=== PATIENT | male | born 1940 | race Caucasian/White ===

== ENCOUNTER 2017-05-12 16:28 | Inpatient (IN) | payer MEDICARE, OTHER ==
[~2017-05-12] VITALS: Ht 172.7 cm; Wt 81.5 kg
[~2017-05-12 16:28] MED LIST: ASPI81 PO; CALC600T34 PO; FISH1000 PO; PRAV40TA PO; TAB-TAB PO; VALTURNA PO
[2017-05-12 16:31] VITALS: BP 142/89; PULSE 80; RESP 16; TEMP 99.6; O2SAT 98
--- NOTE | 2017-05-12 17:24 | RADRPT ---
EXAM DATE/TIME: 05/12/2017 17:08 [place] COMPARISON: No previous studies available for comparison. INDICATIONS : Shortness of breath, sent by doctor. MEDICAL HISTORY : None. SURGICAL HISTORY : None. ENCOUNTER: Initial ACUITY: 1 day PAIN SCORE: 0/10 LOCATION: Bilateral chest FINDINGS: PA and lateral views of the chest were obtained and demonstrate blunting of both posterior and latera l costophrenic angles consistent with small effusions. The heart size is upper limits of normal with no definite perihilar edema. There is no focal consolidation. There is mild patchy opacity of the jack g bases. The bony thorax is intact. CONCLUSION: 1. Small bilateral pleural effusions. 2. Mild patchy opacity at both lung bases with no focal consolidation. 3. No perihilar edema. Sandor Wolf MD on May 12, 2017 at 17:21 Board Certified Radiologist. This report was verified electronically.
[2017-05-12 18:25] LABS: AUTOMATED NEUTROPHIL # 2.9 TH/MM3 (1.8-7.7); BASOPHIL # 0.1 TH/MM3 (0-0.2); EOSINOPHIL # 0.1 TH/MM3 (0-0.4); EOSINOPHIL % 1.7 % (0.0-4.0); HEMATOCRIT 27.5 % (39.0-51.0); LYMPH % 31.6 % (9.0-44.0); LYMPHOCYTE # 1.8 TH/MM3 (1.0-4.8); MEAN CELL VOLUME 88.2 FL (80.0-100.0); MEAN CORPUSCULAR HEMOGLOBIN 29.1 PG (27.0-34.0); MEAN CORPUSCULAR HGB CONC 32.9 % (32.0-36.0); MONO % 13.4 % (0.0-8.0); MONOCYTE # 0.8 TH/MM3 (0-0.9); NEUT % 52.3 % (16.0-70.0); PLATELET COUNT 216 TH/MM3 (150-450); RED BLOOD COUNT 3.12 MIL/MM3 (4.50-5.90); RED CELL DISTRIBUTION WIDTH 15.5 % (11.6-17.2); WHITE BLOOD COUNT 5.6 TH/MM3 (4.0-11.0)
[2017-05-12 18:36] LABS: INTERNATIONAL NORMALIZED RATIO 1.2 RATIO; PROTHROMBIN TIME - PATIENT 11.9 SEC (9.8-11.6)
[2017-05-12 18:41] LABS: ALBUMIN 2.9 GM/DL (3.4-5.0); AST (GOT) 52 U/L (15-37); BICARBONATE 20.9 MEQ/L (21.0-32.0); BLOOD UREA NITROGEN 27 MG/DL (7-18); CALCIUM 8.4 MG/DL (8.5-10.1); CHLORIDE 107 MEQ/L (98-107); CREATININE 2.03 MG/DL (0.60-1.30); GLOMERULAR FILTRATION RATE 32 ML/MIN (>89); GLUCOSE,RANDOM 102 MG/DL (74-106); MAGNESIUM 2.1 MG/DL (1.5-2.5); SODIUM (NA) 140 MEQ/L (136-145)
[2017-05-12 18:42] LABS: ALT (GPT) 30 U/L (12-78)
[2017-05-12 18:46] LABS: ALKALINE PHOSPHATASE 67 U/L (45-117); TOTAL BILIRUBIN ADULT 0.5 MG/DL (0.2-1.0); TOTAL PROTEIN 7.6 GM/DL (6.4-8.2)
[2017-05-12 18:48] LABS: TROPONIN I 9.75 NG/ML (0.02-0.05)
--- NOTE | 2017-05-12 19:15 | PD ---
HPI Chief Complaint: Cardiac Complaint Time Seen by Provider: 19:14 Travel History International Travel<30 days: Yes Contact w/Intl Traveler<30days: Yes Name of Country Traveled to: [place] Traveled to known affect area: No History of Present Illness HPI The patient is a 77 year old male who presents to the [facility] emergency department with a history of progressive shortness of breath over the last 2 weeks and lower extremity edema that greatly worsened over the last week when he was on a cruise. The patient reports that he also gained 10 pounds in water weight. He denies having any prior history of congestive heart failure. He does report having history of multiple myeloma and renal insufficiency. He did see his therapist's assistant today and was sent to the emergency department for evaluation as he was thought to be in congestive heart failure. The patient reports having a history of angioplasty of 2 vessels related to a myocardial infarction in 1992. He reports that he is currently followed by Dr. Clifton for his cardiac care. The patient reports that his last stress test was approximately 2 years ago. He denies having any chest pain or chest pressure. He reports that he's had a cough that the productive intermittently of white to yellow sputum. He reports that his temperature was elevated earlier today at 100. Otherwise on review of systems, the patient denies having any neck pain, abdominal pain, vomiting, diaphoresis, urinary symptoms, or neurologic symptoms. The patient reports that over the last 2 days he has had some loose stools approximately 2-3 times per day. He denies having any blood in his stool or black or tarry stools. He reports that his has had similar symptoms of loose stools. [facility] Past Medical History Narrative Medical The patient's past medical history is significant for hypertension, hyperlipidemia, history of coronary artery disease status post myocardial infarction in 1992, history of multiple myeloma, chronic renal insufficiency, peripheral neuropathy AAA: Yes Arthritis: Yes Blood Disorders: No Cancer: Yes (hx of prostate cancer) Cardiovascular Problems: Yes High Cholesterol: Yes Chemotherapy: Yes (lupron) Diabetes: No Endocrine: No Glaucoma: No Hepatitis: No Hiatal Hernia: No Hypertension: Yes Immune Disorder: No Psychiatric: No Reproductive: No Respiratory: No Myocardial Infarction: Yes Radiation Therapy: Yes Renal Failure: Yes (30% diminished) Thyroid Disease: No Tetanus Vaccination: Unknown Influenza Vaccination: Yes Past Surgical History Narrative Surgical The patient has a history of prostate cancer status post radical prostatectomy, history of cardiac catheterization with angioplasty in 1992, history of abdominal aortic aneurysm repair. Abdominal Surgery: Yes (AAA REPAIR) Cardiac Surgery: Yes (plaque removal from the cardiac arteries) Ear Surgery: No Endocrine Surgery: No Eye Surgery: No Genitourinary Surgery: Yes (prostectomy f/u with radation and chemo) Gynecologic Surgery: No Oral Surgery: No Thoracic Surgery: No Social History Alcohol Use: Yes (one glass of wine daily) Tobacco Use: No (quit smoking in 1990) Substance Use: No Allergies-Medications (Allergen,Severity, Reaction): Coded Allergies: No Known Allergies (Unverified , 07/05/09) Reported Meds & Prescriptions Reported Meds & Active Scripts Active Reported Multi Vitamin Daily (Multiple Vitamin) 1 Tab Tab Tsyhawn-Citrate Plus Vitamin D (Calcium Citrate-Vitamin D) 250-100 Mg-Unit Tab 2 Tab PO BID Ventolin Hfa 18 GM Inh (Albuterol Sulfate) 90 Mcg/Act Aer 2 Puff INH Q4-6H PRN Lyrica (Pregabalin) 75 Mg Cap 75 Mg PO BID Pravastatin 40 Mg Tab 40 Mg PO DAILY Vitamin D3 (Cholecalciferol) 2,000 Unit Cap 2,000 Units PO DAILY Potassium Chloride ER (Potassium Chloride) 10 Meq Cap 10 Meq PO EVERY OTHER DAY Bumetanide 1 Mg Tab 1 Mg PO EVERY OTHER DAY Omeprazole 20 Mg Cap 20 Mg PO DAILY Aspirin 81 Mg Chew 81 Mg CHEW DAILY Revlimid (Lenalidomide) 10 Mg Capsule 10 Mg PO 3 WEEKS ON 1 WEEK OF Coreg (Carvedilol) 3.125 Mg Tab 3.125 Mg PO BID Amlodipine (Amlodipine Besylate) 5 Mg Tab 5 Mg PO DAILY Review of Systems Except as stated in HPI: all other systems reviewed are Neg General / Constitutional: No: Fever Eyes: No: Visual changes HENT: No: Headaches Cardiovascular: Positive: Dyspnea on exertion, Edema, No: Chest Pain or Discomfort Respiratory: Positive: Cough, Shortness of Breath, Orthopnea Gastrointestinal: Positive: Diarrhea, No: Nausea, Vomiting, Abdominal Pain Genitourinary: No: Dysuria Musculoskeletal: No: Pain Skin: No Rash Neurologic: No: Weakness Psychiatric: No: Depression Endocrine: No: Polydipsia Hematologic/Lymphatic: No: Easy Bruising Physical Exam Narrative General: The patient is a well-developed well-nourished male in no acute distress. Head and Neck exam: Head is normocephalic atraumatic. Eyes: EOMI, pupils are equal round and reactive to light. Nose: Midline septum with pink mucous membranes Mouth: Dentition unremarkable. Moist mucus membranes. Posterior oropharynx is not erythematous. No tonsillar hypertrophy. Uvula midline. Airway patent. Neck: No palpable lymphadenopathy. No nuchal rigidity. No thyromegaly. Cardiovascular: Regular rate and rhythm with a 1/6 systolic murmur, no gallops or rubs. No pulse deficit to the extremities on simultaneous auscultation and palpation of his radial artery. Lungs: Decreased breath sounds are audible in bilateral bases with crackles audible in bilateral bases, no rhonchi, no wheezes. The patient has no accessory muscle use noted. Abdomen: Soft, without tenderness to palpation in all 4 quadrants of the abdomen. No guarding, rebound, or rigidity. Normal bowel sounds are audible. No tenderness on palpation of McBurney's point. Extremities: No clubbing or cyanosis. The patient has 2+ pitting edema bilateral lower extremities. 2+ pulses in all 4 extremities. No calf tenderness on palpation. Back: No costovertebral angle tenderness to palpation. Neurologic Exam: Grossly nonfocal. Skin Exam: No rash noted. Intact skin that is warm and dry. Data Data Last Documented VS Vital Signs Date Time Temp Pulse Resp B/P (MAP) Pulse Ox O2 Delivery O2 Flow Rate FiO2 05/12/17 16:31 99.6 80 16 142/89 (106) 98 Orders Orders Complete Blood Count With Diff (05/12/17 16:59) Comprehensive Metabolic Panel (05/12/17 16:59) B-Type Natriuretic Peptide (05/12/17 16:59) Act Partial Throm Time (Ptt) (05/12/17 16:59) Prothrombin Time / Inr (Pt) (05/12/17 16:59) Magnesium (Mg) (05/12/17 16:59) Ckmb (Isoenzyme) Profile (05/12/17 16:59) Troponin I (05/12/17 16:59) Electrocardiogram (05/12/17 16:59) Chest, Pa & Lat (05/12/17 16:59) CKMB (05/12/17 17:37) CKMB% (05/12/17 17:37) Aspirin Chew (Aspirin Chew) (05/12/17 19:30) Nitroglycerin 2% Oint (Nitroglycerin 2% (05/12/17 19:30) Nitroglycerin Sl (Nitrostat Sl) (05/12/17 19:30) Furosemide Inj (Lasix Inj) (05/12/17 19:30) Heparin Inj (Heparin Inj) (05/12/17 19:30) Heparin-D5w 25,000 U/250 Ml (Heparin-D5w (05/12/17 19:30) Cbc No Diff, Includes Plts (05/15/17 06:00) Act Partial Throm Time (Ptt) (05/13/17 02:17) Occult Blood (Hemoccult) Stool (05/12/17 19:17) Aspirin Chew (Aspirin Chew) (05/12/17 20:15) Admit To Inpatient (05/12/17 ) Vital Signs (Adult) Q4H (05/12/17 20:19) Activity Oob With Assistance (05/12/17 20:19) Manager Health / Telemetry .CONTINUOUS (05/12/17 20:19) Intake + Output SEBASTIAN.QSHIFT (05/12/17 20:19) Diet Npo (05/13/17 Breakfast) Sodium Chloride 0.9% Flush (Ns Flush) (05/12/17 20:30) Sodium Chloride 0.9% Flush (Ns Flush) (05/12/17 21:00) Complete Blood Count With Diff (05/13/17 06:00) Creatine Kinase (Cpk) (05/12/17 23:30) Creatine Kinase (Cpk) (05/13/17 05:30) Troponin I (05/12/17 23:30) Troponin I (05/13/17 05:30) Electrocardiogram (05/12/17 23:30) Electrocardiogram (05/13/17 05:30) Pt Request For Service (05/12/17 20:19) Case Management Consult (05/12/17 20:19) Naloxone Inj (Narcan Inj) (05/12/17 20:30) Inpatient Certification (05/12/17 ) Consult Nephrology (05/12/17 ) Furosemide Inj (Lasix Inj) (05/13/17 09:00) Potassium Chloride (Kcl) (05/12/17 21:00) Consult Cardiology (05/12/17 ) Admit Order (Ed Use Only) (05/12/17 20:25) Echo 2d Comp With Doppler (05/13/17 ) Labs Laboratory Tests Test 05/12/17 17:37 White Blood Count 5.6 TH/MM3 Red Blood Count 3.12 MIL/MM3 Hemoglobin 9.0 GM/DL Hematocrit 27.5 % Mean Corpuscular Volume 88.2 FL Mean Corpuscular Hemoglobin 29.1 PG Mean Corpuscular Hemoglobin Concent 32.9 % Red Cell Distribution Width 15.5 % Platelet Count 216 TH/MM3 Mean Platelet Volume 9.0 FL Neutrophils (%) (Auto) 52.3 % Lymphocytes (%) (Auto) 31.6 % Monocytes (%) (Auto) 13.4 % Eosinophils (%) (Auto) 1.7 % Basophils (%) (Auto) 1.0 % Neutrophils # (Auto) 2.9 TH/MM3 Lymphocytes # (Auto) 1.8 TH/MM3 Monocytes # (Auto) 0.8 TH/MM3 Eosinophils # (Auto) 0.1 TH/MM3 Basophils # (Auto) 0.1 TH/MM3 CBC Comment DIFF FINAL Differential Comment Prothrombin Time 11.9 SEC Prothromb Time International Ratio 1.2 RATIO Activated Partial Thromboplast Time 33.2 SEC Blood Urea Nitrogen 27 MG/DL Creatinine 2.03 MG/DL Random Glucose 102 MG/DL Total Protein 7.6 GM/DL Albumin 2.9 GM/DL Calcium Level 8.4 MG/DL Magnesium Level 2.1 MG/DL Alkaline Phosphatase 67 U/L Aspartate Amino Transf (AST/SGOT) 52 U/L Alanine Aminotransferase (ALT/SGPT) 30 U/L Total Bilirubin 0.5 MG/DL Sodium Level 140 MEQ/L Potassium Level 3.4 MEQ/L Chloride Level 107 MEQ/L Carbon Dioxide Level 20.9 MEQ/L Anion Gap 12 MEQ/L Estimat Glomerular Filtration Rate 32 ML/MIN Total Creatine Kinase 377 U/L Creatine Kinase MB 5.4 NG/ML Creatine Kinase MB % 1.4 % Troponin I 9.75 NG/ML B-Type Natriuretic Peptide 1708 PG/ML MDM Medical Decision Making Medical Screen Exam Complete: Yes Emergency Medical Condition: Yes Medical Record Reviewed: Yes Interpretation(s) Last Impressions Chest X-Ray 05/12/17 9519 Signed Impressions: Service Date/Time: Friday, May 12, 2017 17:08 - CONCLUSION: 1. Small bilateral pleural effusions. 2. Mild patchy opacity at both lung bases with no focal consolidation. 3. No perihilar edema. Sandor Wolf MD Differential Diagnosis New-onset congestive heart failure, versus acute coronary syndrome, versus pneumonia Narrative Course During the course of the patients emergency department visit, the patients history, examination, and differential diagnosis were reviewed with the patient. The patient was placed on a front desk monitor with oximetry and frequent blood pressure monitoring. The patient had IV access obtained and blood work sent for analysis. The patient had an EKG done on arrival in the emergency department at 17:35. The patient was noted to have a sinus rhythm with a sinus arrhythmia, QRS duration 117 ms, QTC 412 ms. Q waves were noted to be present in lead 3, T waves inverted in lead 3, aVF. No acute ST segment elevation is noted. The patient was initially provided the patient was given aspirin 324 mg by mouth 1, nitroglycerin 1 inch the chest wall. The patient's troponin by the time he arrived back in the emergency department bed after being protocol down in triage was noted to be elevated at 9.7 a call was urgently placed out to the sleep medicine physician, Dr. Clifton that the patient follows with as an outpatient. We discussed the fact that the patient appears to be in congestive heart failure. As the patient currently has no chest pain he believes that the patient underwent our heart attack and we are seeing a downward trend in his troponin with heart failure as a result of the damage from the prior cardiac injury. He recommends diuresis. The patient was given Lasix 60 mg IV. He recommends placement on heparin. The patient was given a heparin bolus and heparin drip. He will see the patient consultation and after the patient is diuresis plans to take the patient to the cardiac catheterization lab. The patients laboratory studies were reviewed and remarkable for a white count of 5.6, hemoglobin 9, platelets 216 with 13.4 monocytes, CMP is remarkable for potassium of 3.4, CO2 20.9, BUN 27, creatinine 2.03, calcium 8.4, AST 52, CPK 377 with an MB percent of 1.4, troponin I 9.75, albumin 2.9, BNP 1708. PT 11.9 , INR 1.2, PTT 33.2. Radiology studies were reviewed and remarkable for a chest x-ray that reveals small bilateral pleural effusions, mild patchy opacity at both lung bases with no focal consolidation. No perihilar edema. The patients results were discussed with the patient, including the plan of care. I explained that further testing and/ or monitoring is indicated based on the patients history, examination, and/ or laboratory findings. Therefore, I recommended admission for additional evaluation. The patient expressed understanding and was agreeable with this plan. The patient was admitted to the hospital in guarded condition and sent to a bed under the care of the [facility] service. Critical Care Narrative Aggregate critical care time was 35 minutes. Time to perform other separately billable procedures was not included in the critical care time. My time did not include minutes spent treating any other patients simultaneously or on activities that did not directly contribute to the patient's treatment. The services I provided to this patient were to treat and/or prevent clinically significant deterioration that could result in: Respiratory failure from congestive heart failure, versus cardiovascular collapse I provided critical care services requiring my management, as noted below: Chart data review, documentation time, medication orders and management, vital sign assessments/reviewing monitor data, ordering and reviewing lab tests, ordering and interpreting/reviewing x-rays and diagnostic studies, care of the patient and discussion of the patient with the admitting physicians. Physician Communication Physician Communication The patient's case including history, pertinent physical examination findings, and laboratory studies were discussed with Dr. Clifton at 19:28. He agreed with the plan to place the patient on heparin bolus and drip. He recommended that the patient be diuresed. He agreed with the plan to place the patient on an adult aspirin as well as nitroglycerin paste. It was agreed that the patient would be admitted to the [facility] service. The patient's case was discussed with Dr. Mendoza. She did agree to admit the patient for further evaluation and treatment at this time. Diagnosis Primary Impression: Non-STEMI (non-ST elevated myocardial infarction) Additional Impression: New onset of congestive heart failure Admitting Information Admitting Physician Requests: Gayla Lewis MD May 12, 2017 19:15
[2017-05-12] MEDS ORDERED: HEPARIN SODIUM - IV 10,000 UNITS/10 ML VIAL IV ONE (19:30)
[2017-05-12] MEDS ORDERED: ASPIRIN 81 MG CHEW TAB CHEW ONE ×2 (19:30→20:15)
[2017-05-12] MEDS ORDERED: NITROGLYCERIN 0.4 MG SL 25 TABS/BTL SL PRN (19:30)
[2017-05-12] MEDS ORDERED: FUROSEMIDE 40 MG/4 ML VIAL IV PUSH ONE (19:30)
[2017-05-12] MEDS ORDERED: NITROGLYCERIN 2% OINT 1 GM PACKET TOPICAL ONE (19:30)
[2017-05-12] MEDS: HEPARIN-D5W 25,000 U/250 ML 250 ML IV PRN (19:37)
[2017-05-12] MEDS ORDERED: OMEP20CA2 PO (19:52)
[2017-05-12] MEDS ORDERED: CARV3.125 PO (19:52)
[2017-05-12] MEDS ORDERED: CAL-TAB4 PO (19:52)
[2017-05-12] MEDS ORDERED: LENA10CA PO (19:52)
[2017-05-12] MEDS ORDERED: ASPI-516 CHEW (19:52)
[2017-05-12] MEDS ORDERED: MULT1TAB46 (19:52)
[2017-05-12] MEDS ORDERED: VENTAER INH (19:52)
[2017-05-12] MEDS ORDERED: PRAV40TA2 PO (19:52)
[2017-05-12] MEDS ORDERED: AMLO5TAB2 PO (19:52)
[2017-05-12] MEDS ORDERED: POTA10CA PO (19:52)
[2017-05-12] MEDS ORDERED: VITA2000 PO (19:52)
[2017-05-12] MEDS ORDERED: BUME1TAB PO (19:52)
[2017-05-12] MEDS ORDERED: LYRI75CA PO (19:52)
[2017-05-12] MEDS ORDERED: SODIUM CHLORIDE 0.9% FLUSH 10 ML FLUSH IV FLUSH PRN (20:30)
[2017-05-12] MEDS ORDERED: NALOXONE HCL 0.4 MG/ML AMP IV PUSH PRN (20:30)
[2017-05-12] MEDS ORDERED: POTASSIUM CHLORIDE 20 MEQ CONTROLLED RELEASE TAB PO ONE (21:00)
[2017-05-12] MEDS: SODIUM CHLORIDE 0.9% FLUSH 10 ML FLUSH IV FLUSH SCH (21:00)
[2017-05-12 21:56] VITALS: BP 101/52; PULSE 72; RESP 18; O2SAT 96
--- NOTE | 2017-05-12 22:49 | HHI.HP ---
HPI Service [facility] Primary Care Physician Brandon Cuellar M.D. Admission Diagnosis NonSTEMI, New onset CHF Diagnoses: Travel History International Travel<30 Days: Yes Contact w/Intl Traveler <30 Da: Yes Name of Country Traveled to: [place] Traveled to Known Affected Are: No History of Present Illness hx from patient, ER MD communication and review of med records my doctor sent me because my legs are swelling like an elephant DR Lizama sent was short of breath, cough for about 10days mostly on exertion and when bending down no pillow orthopnea no pnd usually uses cpap at night for sleep apnea not on home oxygen no chest pain or tightness had one day hx of diarrhea yesterday- was on a cruise - but was just once or twice yesterday no other sick contact no black or red stool or blood in urine no other symptoms Review of Systems Except as stated in HPI: all other systems reviewed are Neg Past Family Social History Past Medical History htn cad s/p [place] 1992 sleep apnea on cpap copd - was a smoker, on nebs ckd III multiple meyloma- on oral chemo- follows at [facility] prostate [facility]- s/p prostatectomy- had radiation and leupron - 1999 AAA repair 2007 Past Surgical History prostatectomy coronary angiogram and stent AAA repair 2007 Allergies: Coded Allergies: No Known Allergies (Unverified , 07/05/09) Family History chf - mom - valve replaced father- lung cancer and heart issues Social History quit smoking 1990 no etoh or drug abuse lives with , still driving Physical Exam Vital Signs Vital Signs Date Time Temp Pulse Resp B/P (MAP) Pulse Ox O2 Delivery O2 Flow Rate FiO2 05/12/17 21:56 72 18 101/52 (68) 96 2.00 05/12/17 16:31 99.6 80 16 142/89 (106) 98 Physical Exam GENERAL: This is a well-nourished, well-developed patient, in no apparent distress. SKIN: No rashes, ecchymoses or lesions. Cool and dry. HEAD: Atraumatic. Normocephalic. No temporal or scalp tenderness. EYES: . No scleral icterus. No injection or drainage. ENT: Nose without bleeding, purulent drainage or septal hematoma. Airway patent. NECK: Trachea midline. No JVD CARDIOVASCULAR: Regular rate and rhythm without murmurs, gallops, or rubs. RESPIRATORY: bilateral basilar rales GASTROINTESTINAL: Abdomen soft, non-tender, nondistended. . No guarding. MUSCULOSKELETAL: Extremities without clubbing, cyanosis, or edema. No calf tenderness. NEUROLOGICAL: Awake and alert. Motor and sensory grossly within normal limits. Normal speech. Laboratory Laboratory Tests Test 05/12/17 17:37 White Blood Count 5.6 Red Blood Count 3.12 Hemoglobin 9.0 Hematocrit 27.5 Mean Corpuscular Volume 88.2 Mean Corpuscular Hemoglobin 29.1 Mean Corpuscular Hemoglobin Concent 32.9 Red Cell Distribution Width 15.5 Platelet Count 216 Mean Platelet Volume 9.0 Neutrophils (%) (Auto) 52.3 Lymphocytes (%) (Auto) 31.6 Monocytes (%) (Auto) 13.4 Eosinophils (%) (Auto) 1.7 Basophils (%) (Auto) 1.0 Neutrophils # (Auto) 2.9 Lymphocytes # (Auto) 1.8 Monocytes # (Auto) 0.8 Eosinophils # (Auto) 0.1 Basophils # (Auto) 0.1 CBC Comment DIFF FINAL Differential Comment Prothrombin Time 11.9 Prothromb Time International Ratio 1.2 Activated Partial Thromboplast Time 33.2 Blood Urea Nitrogen 27 Creatinine 2.03 Random Glucose 102 Total Protein 7.6 Albumin 2.9 Calcium Level 8.4 Magnesium Level 2.1 Alkaline Phosphatase 67 Aspartate Amino Transf (AST/SGOT) 52 Alanine Aminotransferase (ALT/SGPT) 30 Total Bilirubin 0.5 Sodium Level 140 Potassium Level 3.4 Chloride Level 107 Carbon Dioxide Level 20.9 Anion Gap 12 Estimat Glomerular Filtration Rate 32 Total Creatine Kinase 377 Creatine Kinase MB 5.4 Creatine Kinase MB % 1.4 Troponin I 9.75 B-Type Natriuretic Peptide 1708 Result Diagram: 05/12/17 1737 05/12/17 1737 Imaging Last 48 hours Impressions Chest X-Ray 05/12/17 1659 Signed Impressions: Service Date/Time: Friday, May 12, 2017 17:08 - CONCLUSION: 1. Small bilateral pleural effusions. 2. Mild patchy opacity at both lung bases with no focal consolidation. 3. No perihilar edema. MD Jazmyn Gutierrez VTE Risk Assessment Caprini VTE Risk Assessment: Mod/High Risk (score >= 2) Caprini Risk Assessment Model Point Value = 1 Point Value = 2 Point Value = 3 Point Value = 5 Age 41-60 Minor surgery BMI > 25 kg/m2 Swollen legs Varicose veins or History of unexplained or recurrent spontaneous Oral contraceptives or hormone replacement Sepsis (< 1 month) Serious lung disease, including pneumonia (< 1 month) Abnormal pulmonary function Acute myocardial infarction Congestive heart failure (< 1 month) History of inflammatory bowel disease Medical patient at bed rest Age 61-74 Arthroscopic surgery Major open surgery (> 45 min) Laparoscopic surgery (> 45 min) Malignancy Confined to bed (> 72 hours) Immobilizing plaster cast Central venous access Age >= 75 History of VTE Family history of VTE Factor V Leiden Prothrombin [id number] Lupus anticoagulant Anticardiolipin antibodies Elevated serum homocysteine Heparin-induced thrombocytopenia Other congenital or acquired thrombophilia Stroke (< 1 month) Elective arthroplasty Hip, pelvis, or leg fracture Acute spinal cord injury (< 1 month) Prophylaxis Regimen Total Risk Factor Score Risk Level Prophylaxis Regimen 0-1 Low Early ambulation 2 Moderate Order ONE of the following: *Sequential Compression Device (SCD) *Heparin 5000 units SQ BID 3-4 Higher Order ONE of the following medications: *Heparin 5000 units SQ TID *Enoxaparin/Lovenox 40 mg SQ daily (WT < 150 kg, CrCl > 30 mL/min) *Enoxaparin/Lovenox 30 mg SQ daily (WT < 150 kg, CrCl > 10-29 mL/min) *Enoxaparin/Lovenox 30 mg SQ BID (WT < 150 kg, CrCl > 30 mL/min) AND/OR *Sequential Compression Device (SCD) 5 or more Highest Order ONE of the following medications: *Heparin 5000 units SQ TID (Preferred with Epidurals) *Enoxaparin/Lovenox 40 mg SQ daily (WT < 150 kg, CrCl > 30 mL/min) *Enoxaparin/Lovenox 30 mg SQ daily (WT < 150 kg, CrCl > 10-29 mL/min) *Enoxaparin/Lovenox 30 mg SQ BID (WT < 150 kg, CrCl > 30 mL/min) AND *Sequential Compression Device (SCD) Assessment and Plan Assessment and Plan Impression: Non-ST elevation [place] in. Likely the event occurred a few days ago. New-onset CHF Hypokalemia Acute renal insufficiency in face of chronic kidney disease htn cad s/p [place] 1992 sleep apnea on cpap copd - was a smoker, on nebs ckd III multiple meyloma- on oral chemo- follows at [facility] prostate [facility]- s/p prostatectomy- had radiation and leupron - 1999 AAA repair 2007 Plan: Serial cardiac enzymes and EKGs. Cardiology was consulted. Heparin drip. Echocardiogram in a.m. The patient will go for coronary angiogram in the morning. Nothing by mouth. Consult patient's lead net software developer as patient is at high risk for renal failure/ possibly angina on dialysis. This was explained to patient. Lasix 40 mg IV every 12 hours. Potassium supplementation. Resume home medications. Resume patient's C Pap at night. DVT prophylaxis on heparin. Discussed Condition With Patient, ER physician, nursing staff Physician Certification 2 Midnight Certification Type: Admission for Inpatient Services Order for Inpatient Services The services are ordered in accordance with Medicare regulations or non- Medicare payer requirements, as applicable. In the case of services not specified as inpatient-only, they are appropriately provided as inpatient services in accordance with the 2-midnight benchmark. Estimated LOS (days): 2 days is the estimated time the patient will need to remain in the hospital, assuming treatment plan goals are met and no additional complications. Post-Hospital Plan: Home Asia Mendoza MD May 12, 2017 22:49
[2017-05-12] MEDS ORDERED: RESP: ALBUTEROL 2.5 MG/IPRATROPIUM 0.5 MG NEB (PRN) NEB (23:00)
[2017-05-13] VITALS (17 sets, daily range): BP systolic 97–122; BP diastolic 57–63; PULSE 62–80; RESP 16–22; TEMP 98.7–100.3; O2SAT 94–99
[2017-05-13 00:18] LABS: TROPONIN I 9.28 NG/ML (0.02-0.05)
[2017-05-13 01:52] LABS: AUTOMATED NEUTROPHIL # 1.9 TH/MM3 (1.8-7.7); BASOPHIL # 0.1 TH/MM3 (0-0.2); BASOPHIL % 1.1 % (0.0-2.0); EOSINOPHIL # 0.2 TH/MM3 (0-0.4); EOSINOPHIL % 3.9 % (0.0-4.0); HEMATOCRIT 25.2 % (39.0-51.0); HEMOGLOBIN 8.5 GM/DL (13.0-17.0); LYMPH % 43.1 % (9.0-44.0); LYMPHOCYTE # 2.1 TH/MM3 (1.0-4.8); MEAN CELL VOLUME 88.8 FL (80.0-100.0); MEAN CORPUSCULAR HEMOGLOBIN 29.9 PG (27.0-34.0); MEAN CORPUSCULAR HGB CONC 33.7 % (32.0-36.0); MEAN PLATELET VOLUME 8.7 FL (7.0-11.0); MONO % 12.7 % (0.0-8.0); MONOCYTE # 0.6 TH/MM3 (0-0.9); NEUT % 39.2 % (16.0-70.0); PLATELET COUNT 214 TH/MM3 (150-450); RED BLOOD COUNT 2.83 MIL/MM3 (4.50-5.90); RED CELL DISTRIBUTION WIDTH 15.6 % (11.6-17.2); WHITE BLOOD COUNT 4.8 TH/MM3 (4.0-11.0)
[2017-05-13 02:08] LABS: BICARBONATE 21.9 MEQ/L (21.0-32.0); CALCIUM 7.9 MG/DL (8.5-10.1); CREATININE 2.01 MG/DL (0.60-1.30)
[2017-05-13 02:16] LABS: TROPONIN I 9.68 NG/ML (0.02-0.05)
[2017-05-13] MEDS: PREGABALIN 75 MG CAP PO SCH ×2 (08:14→23:15)
[2017-05-13] MEDS: CARVEDILOL 3.125 MG TAB PO SCH ×2 (08:14→23:15)
[2017-05-13] MEDS: PANTOPRAZOLE SOD 20 MG DELAYED RELEASE TAB PO SCH ×2 (08:14→09:00)
[2017-05-13] MEDS: ASPIRIN 81 MG CHEW TAB CHEW SCH (08:14)
[2017-05-13] MEDS: amLODIPine BESYLATE 5 MG TAB PO SCH (08:14)
[2017-05-13] MEDS: SODIUM CHLORIDE 0.9% FLUSH 10 ML FLUSH IV FLUSH SCH ×2 (08:15→23:16)
[2017-05-13] MEDS: FUROSEMIDE 40 MG/4 ML VIAL IV PUSH SCH ×2 (08:15→18:33)
--- NOTE | 2017-05-13 08:35 | PD.CONS ---
HPI Service Cardiology Physicians Consult Requested By Hospitalist Reason for Consult NSTEMI, new onset CHF Primary Care Physician Brandon Cuellar M.D. History of Present Illness Mr. Nicholas is a pleasant 77 y/o known to Dr. Clifton. He has a past medical history of coronary artery disease, peripheral arterial disease, status post abdominal aortic aneurysm repair in 2007. Other issues include hypertension, hyperlipidemia, mild aortic stenosis, LVH, COPD, CKD, multiple myeloma on chemotherapy. He presented to the ED yesterday with complaints of sob, lower extremity edema. He reports 10 day history of LE edema. He has been modifying his sodium intake without improvement. He just returned Thursday from a cruise. Yesterday he went to see Dr. Lizama who sent him to the ED for further evaluation and treatment. He has noticed increased sob with exertion for some time now, sob when bending over. He denies chest pain, palpitations, orthopnea or PND. Work up in the ED with CXR - small bilateral pleural effusions. Serial troponin 9.75, 9.28, 9.68. BNP 1708. He was started on heparin drip and has been diuresed. He reports his sob and edema have improved. He is currently sitting on the side of the bed without distress. He denies chest pain or complaints. Review of Systems Consitutional: DENIES: Fatigue, Fever, Chills, Weight gain, Weight loss Eyes: DENIES: Change in vision HEENT: DENIES: Lightheadedness, Change in hearing Respiratory: COMPLAINS OF: Cough, Shortness of breath, DENIES: See HPI, Snoring , Wheezing, Sputum production Cardiovascular: COMPLAINS OF: See HPI, DENIES: Chest pain, Palpitations, Syncope, Tachycardia Gastrointestinal: DENIES: Nausea, Vomiting, Change in bowel habits, Reflux, Bloody stools, Melena Genitourinary: DENIES: Urinary incontinence, Difficulty voiding Integumentary: DENIES: Rash Neurologic: DENIES: Tingling or numbness, Memory problems, Poor Balance, Stroke symptoms Musculoskeletal: DENIES: Joint pain, Muscle pain, Limited range of motion, Back pain Psychiatric: DENIES: Anxiety, Depression, Sleep disturbances Hematologic: DENIES: Bruising tendencies, Bleeding tendencies Endocrine: DENIES: Thyroid disease Past Family Social History Allergies: Coded Allergies: No Known Allergies (Unverified , 07/05/09) Past Medical History coronary artery disease, peripheral arterial disease, status post abdominal aortic aneurysm repair in 2007. Other issues include hypertension, hyperlipidemia,, mild Aortic stenosis, LVH ,COPD, CKD, multiple myeloma. Past Surgical History prostatectomy AAA repair 2007 Reported Medications Reported Meds & Active Scripts Active Reported Multi Vitamin Daily (Multiple Vitamin) 1 Tab Tab Tyshawn-Citrate Plus Vitamin D (Calcium Citrate-Vitamin D) 250-100 Mg-Unit Tab 2 Tab PO BID Ventolin Hfa 18 GM Inh (Albuterol Sulfate) 90 Mcg/Act Aer 2 Puff INH Q4-6H PRN Lyrica (Pregabalin) 75 Mg Cap 75 Mg PO BID Pravastatin 40 Mg Tab 40 Mg PO DAILY Vitamin D3 (Cholecalciferol) 2,000 Unit Cap 2,000 Units PO DAILY Potassium Chloride ER (Potassium Chloride) 10 Meq Cap 10 Meq PO EVERY OTHER DAY Bumetanide 1 Mg Tab 1 Mg PO EVERY OTHER DAY Omeprazole 20 Mg Cap 20 Mg PO DAILY Aspirin 81 Mg Chew 81 Mg CHEW DAILY Revlimid (Lenalidomide) 10 Mg Capsule 10 Mg PO 3 WEEKS ON 1 WEEK OF Coreg (Carvedilol) 3.125 Mg Tab 3.125 Mg PO BID Amlodipine (Amlodipine Besylate) 5 Mg Tab 5 Mg PO DAILY Active Ordered Medications Current Medications Medications (Trade) Dose Ordered Sig/Elio Route Start Time Stop Time Status Last Admin (Nitrostat Sl) 0.4 mg Q5M PRN SL 05/12/17 19:30 Heparin Sodium/ Dextrose 250 ml @ 10 mls/hr TITRATE PRN IV 05/12/17 19:30 05/12/17 19:37 (NS Flush) 2 ml UNSCH PRN IV FLUSH 05/12/17 20:30 (NS Flush) 2 ml BID IV FLUSH 05/12/17 21:00 (Narcan Inj) 0.4 mg UNSCH PRN IV PUSH 05/12/17 20:30 (Lasix Inj) 40 mg BID@18 IV PUSH 05/13/17 09:00 05/13/17 08:15 (Norvasc) 5 mg DAILY PO 05/13/17 09:00 05/13/17 08:14 (Aspirin Chew) 81 mg DAILY CHEW 05/13/17 09:00 05/13/17 08:14 (Coreg) 3.125 mg BID PO 05/13/17 09:00 05/13/17 08:14 (KCl) 10 meq EVERY OTHER DAY PO 05/14/17 09:00 (Pravachol) 40 mg DAILY PO 05/13/17 09:00 05/13/17 08:14 (Lyrica) 75 mg BID PO 05/13/17 09:00 05/13/17 08:14 Patient Own Medication PT OWN MED: Lenalidomide (Revlim... 3 weeks on 1 week of PO 05/12/17 23:00 Future Hold (Protonix) 20 mg DAILY PO 05/13/17 09:00 05/13/17 08:14 (Duoneb Neb) 1 ampule Q4HR NEB PRN NEB 05/12/17 23:00 Family History Mother with history of CHF, valve replacement Father with history of lung cancer and CAD Social History He was a previous smoker, quit smoking in 1990, denies ETOH. lives with his . Physical Exam Vital Signs Vital Signs Date Time Temp Pulse Resp B/P (MAP) Pulse Ox O2 Delivery O2 Flow Rate FiO2 05/13/17 04:00 66 05/13/17 04:00 99.2 66 20 111/62 (78) 98 05/13/17 02:22 77 05/13/17 01:29 (68) 2.00 05/13/17 01:10 99.5 70 22 122/60 (80) 99 05/13/17 00:28 18 98 05/12/17 21:56 72 18 101/52 (68) 96 2.00 05/12/17 16:31 99.6 80 16 142/89 (106) 98 Physical Exam GENERAL: Awake, alert. No distress. SKIN: Warm and dry. HEAD: Atraumatic. Normocephalic. EYES: Pupils equal and round. No scleral icterus. No injection or drainage. ENT: No nasal bleeding or discharge. Mucous membranes pink and moist. NECK: Trachea midline. No JVD. CARDIOVASCULAR: Regular rate and rhythm. Systolic murmur over the aortic valve. RESPIRATORY: No accessory muscle use. Faint bibasilar crackles. Breath sounds equal bilaterally. GASTROINTESTINAL: Abdomen soft, non-tender, nondistended. MUSCULOSKELETAL: Extremities without clubbing, cyanosis. 2+ BLE edema. No obvious deformities. NEUROLOGICAL: Awake and alert. No obvious cranial nerve deficits. Motor grossly within normal limits. Five out of 5 muscle strength in the arms and legs. Normal speech. PSYCHIATRIC: Appropriate mood and affect; insight and judgment normal. Laboratory Laboratory Tests Test 05/12/17 17:37 05/12/17 23:43 05/13/17 01:47 White Blood Count 5.6 4.8 Red Blood Count 3.12 2.83 Hemoglobin 9.0 8.5 Hematocrit 27.5 25.2 Mean Corpuscular Volume 88.2 88.8 Mean Corpuscular Hemoglobin 29.1 29.9 Mean Corpuscular Hemoglobin Concent 32.9 33.7 Red Cell Distribution Width 15.5 15.6 Platelet Count 216 214 Mean Platelet Volume 9.0 8.7 Neutrophils (%) (Auto) 52.3 39.2 Lymphocytes (%) (Auto) 31.6 43.1 Monocytes (%) (Auto) 13.4 12.7 Eosinophils (%) (Auto) 1.7 3.9 Basophils (%) (Auto) 1.0 1.1 Neutrophils # (Auto) 2.9 1.9 Lymphocytes # (Auto) 1.8 2.1 Monocytes # (Auto) 0.8 0.6 Eosinophils # (Auto) 0.1 0.2 Basophils # (Auto) 0.1 0.1 CBC Comment DIFF FINAL DIFF FINAL Differential Comment Prothrombin Time 11.9 Prothromb Time International Ratio 1.2 Activated Partial Thromboplast Time 33.2 39.8 Blood Urea Nitrogen 27 29 Creatinine 2.03 2.01 Random Glucose 102 100 Total Protein 7.6 Albumin 2.9 Calcium Level 8.4 7.9 Magnesium Level 2.1 Alkaline Phosphatase 67 Aspartate Amino Transf (AST/SGOT) 52 Alanine Aminotransferase (ALT/SGPT) 30 Total Bilirubin 0.5 Sodium Level 140 145 Potassium Level 3.4 3.4 Chloride Level 107 111 Carbon Dioxide Level 20.9 21.9 Anion Gap 12 12 Estimat Glomerular Filtration Rate 32 32 Total Creatine Kinase 377 270 276 Creatine Kinase MB 5.4 Creatine Kinase MB % 1.4 Troponin I 9.75 9.28 9.68 B-Type Natriuretic Peptide 1708 Result Diagram: 05/13/17 0147 05/13/17 0147 Imaging Last 24 hours Impressions Chest X-Ray 05/12/17 [id number] Signed Impressions: Service Date/Time: Friday, May 12, 2017 17:08 - CONCLUSION: 1. Small bilateral pleural effusions. 2. Mild patchy opacity at both lung bases with no focal consolidation. 3. No perihilar edema. Sandor Wolf MD Assessment and Plan Assessment and Plan NSTEMI New onset CHF Hypertension CKD Pain free. Continue heparin drip. Continue aspirin, statin, beta el, norvasc. Continue diuresis. Monitor I&O, BNP, electrolytes and renal function. Will check echocardiogram to evaluate LV function. Will plan for cardiac catheterization tomorrow. Dr. Clifton will discuss with Dr. Lizama. Code Status Full Discussed Condition With Dang Valencia May 13, 2017 08:35
[2017-05-13] MEDS ORDERED: PRAVASTATIN SOD 40 MG TAB PO SCH (09:00)
--- NOTE | 2017-05-13 10:05 | HHI.FF ---
Face to Face Verification Diagnosis: (1) Non-STEMI (non-ST elevated myocardial infarction) (2) New onset of congestive heart failure Home Health Nursing Order: Medical education Signs/symptoms of disease process CHF education Oxygen administration education Telehealth I have seen patient Barbara Nicholas on 05/13/17. My clinical findings support the need for the requested home health care services because: Patient has SOB Need for psychosocial assistance High risk of falls Infection w/ risk of complications I certify that my clinical findings support that this patient is homebound because: Impaired cognitive ability/safety Unsafe to leave home unassisted Need for psychosocial assistance Unable to use public transportation Ortiz Mccloud DO May 13, 2017 10:05 am
[2017-05-13] MEDS ORDERED: ACETYLCYSTEINE 20% 6,000 MG/30 ML ORAL SOLN VIAL PO SCH (12:15)
[2017-05-13 13:01] LABS: BILIRUBIN, URINE NEG (NEG); BLOOD, URINE SMALL (NEG); GLUCOSE,URINE NEG (NEG); HYALINE CAST, URINE 1 /lpf (RARE); KETONE, URINE NEG (NEG); MUCUS URINE FEW /lpf (OCC); NITRITE,URINE NEG (NEG); SQUAMOUS EPITHELIAL CELL URINE <1 /hpf (0-5); URINE COLOR LIGHT-YELLOW (YELLW/STRAW); URINE LEUKOCYTE ESTERASE NEG (NEG)
--- NOTE | 2017-05-13 13:12 | HHI.PR ---
Subjective Remarks Follow up for NSTEMI, CHF. Patient is currently doing well. Still feels short of breath. No fever, chills is at bedside. Objective Vitals Vital Signs Date Time Temp Pulse Resp B/P (MAP) Pulse Ox O2 Delivery O2 Flow Rate FiO2 05/13/17 10:03 94 21 05/13/17 08:30 98.7 68 18 117/63 (81) 97 05/13/17 04:00 66 05/13/17 04:00 99.2 66 20 111/62 (78) 98 05/13/17 02:22 77 05/13/17 01:29 (68) 2.00 05/13/17 01:10 99.5 70 22 122/60 (80) 99 05/13/17 00:28 18 98 05/12/17 21:56 72 18 101/52 (68) 96 2.00 05/12/17 16:31 99.6 80 16 142/89 (106) 98 I/O 05/12/17 05/12/17 05/12/17 05/13/17 05/13/17 05/13/17 07:00 15:00 23:00 07:00 15:00 23:00 Output Total 350 ml 625 ml Balance -350 ml -625 ml Output Urine Total 350 ml 625 ml Result Diagram: 05/13/17 01405/13/17 0147 Imaging Last Impressions Chest X-Ray 05/12/17 1659 Signed Impressions: Service Date/Time: Friday, May 12, 2017 17:08 - CONCLUSION: 1. Small bilateral pleural effusions. 2. Mild patchy opacity at both lung bases with no focal consolidation. 3. No perihilar edema. Sandor Wolf MD Objective Remarks GENERAL: Alert, Oriented x 3, NAD. SKIN: Warm and dry. HEAD: Normocephalic. EYES: No scleral icterus. No injection or drainage. NECK: Supple, trachea midline. No JVD or lymphadenopathy. CARDIOVASCULAR: Regular rate and rhythm without murmurs, gallops, or rubs. RESPIRATORY: Moderate air entry, bibasilar crackles. GASTROINTESTINAL: Abdomen soft, non-tender, nondistended. MUSCULOSKELETAL: No cyanosis. 2+ lower ext edema. BACK: Nontender without obvious deformity. No CVA tenderness. Procedures Echo 05/13/2017 The left ventricular systolic function is mildly reduced with an estimated ejection fraction of 45%. Normal left ventricular size. Moderate concentric left ventricular hypertrophy. The left atrial size is [id number] dilated. Moderate mitral valve regurgitation. Moderate thickening of the aortic valve leaflets. Mild aortic valve regurgitation. There is trace tricuspid valve regurgitation. The estimated pulmonary arterial pressure is 40 mmHg. Trivial pulmonary valve regurgitation. A/P Problem List: (1) Non-STEMI (non-ST elevated myocardial infarction) ICD Code: I21.4 - Non-ST elevation (NSTEMI) myocardial infarction Status: Acute (2) New onset of congestive heart failure ICD Code: I50.9 - Heart failure, unspecified Status: Acute (3) Anemia ICD Code: D64.9 - Anemia, unspecified Status: Chronic Assessment and Plan Mr. Nicholas is a pleasant 77 year old male who presented to the ED due to increased shortness of breath, leg swelling. He was found to have NSTEMI as well. - Non-STEMI - Troponins are 9.28, 9.68, 6.78. - Continue heparin drip, aspirin 81mg Qday, Carvedilol 3.125mg BID. - Nitroglycerine PRN. - Patient is currently on Pravastatin 40mg Qday. Will switch to Lipitor 80mg Qday. - New onset Congestive heart failure, likely systolic. - Echo shows EF 45%. - Continue beta el, aspirin, Lasix 40mg IV BID. - Consider Lisinopril since he does have reduced EF. - CKD stage III - Creatinine around 2.0. Nephrology started patient on Mucomyst. - Avoid nephrotoxins. - Discussed with that it would be beneficial to undergo cath despite the possibility of worsening kidney function. - Hypertension - continue Amlodipine 5mg Qday. Full code. Heparin drip. Ortiz Mccloud DO May 13, 2017 13:12
[2017-05-13] MEDS: ACETYLCYSTEINE 20% ORAL SOLN 4 ML VIAL PO SCH ×2 (13:28→21:00)
--- NOTE | 2017-05-13 16:56 | PD.CONS ---
HPI Consult Requested By Reason for Consult Chronic kidney disease stage III. Primary Care Physician Brandon Cuellar M.D. History of Present Illness This patient is a 77-year-old male with a history of known chronic kidney disease stage III with a baseline creatinine level of approximately 1.7-1.9. Patient's initial chronic kidney disease was related to nephrosclerosis of hypertension but the patient subsequently developed marked proteinuria with development of a monoclonal gammopathy and was subsequently diagnosis having superimposed myeloma which is being managed by the hematology department at the [facility] in [place]. Patient has been on Revlimid. More recently patient's proteinuria has been improving. Patient subsequently presented to my office however yesterday complaining of increasing lower extremity edema with dyspnea. Renal labs were pending at the time of presentation to the office yesterday. There was a history of a echocardiogram at the [facility] indicating preserved ejection fraction. Because of the severity of the patient's fluid retention with respiratory insufficiency he was advised to be admitted to the hospital for further evaluation and apparently had evidence of acute myocardial injury with elevated troponin levels. Patient denied any chest pain at time of presentation. He does have a history however of aphthous chronic heart disease as well as an abdominal aortic aneurysm. Also previous history of AAA repair. Review of Systems Constitutional: COMPLAINS OF: Fatigue, Weight gain, DENIES: Diaphoretic episodes, Fever, Weight loss, Chills, Dizziness, Change in appetite, Night Sweats Respiratory: COMPLAINS OF: Cough, Shortness of breath, DENIES: Apneas, Snoring , Wheezing, Hemoptysis, Sputum production Cardiovascular: COMPLAINS OF: Dyspnea on Exertion, PND, Lower Extremity Edema, Orthopnea, DENIES: Chest pain, Palpitations, Syncope, Claudication Musculoskeletal: COMPLAINS OF: Joint pain, DENIES: Muscle aches, Stiffness, Joint Swelling, Back pain, Neck pain Past Family Social History Allergies: Coded Allergies: No Known Allergies (Unverified , 07/05/09) Past Medical History Chronic kidney disease stage III secondary to nephrosclerosis of hypertension and aging. More recently development of nephrotic range proteinuria secondary to multiple myeloma. IgG lambda monoclonal immunoglobulin, monoclonal free lambda light chains. Patient being managed by the [facility] with Revlimid and dexamethasone. Anemia. History of prostate cancer. Arthroscopic heart disease. Abdominal aortic aneurysm. Hypertension. Polyarteritis of lung. Churg-Bird syndrome. Past Surgical History Mention of abdominal aortic aneurysm repair. Reported Medications Current Medications Aspirin (Aspirin Chew) 243 mg ONCE ONCE CHEW ; Start 05/12/17 at 19:30; Stop 05/12/17 at 20:15; Status DC Nitroglycerin (Nitroglycerin 2% Oint) 1 inch ONCE ONCE TOPICAL Last administered on 05/12/17at 19:33; Start 05/12/17 at 19:30; Stop 05/12/17 at 19:31; Status DC Nitroglycerin (Nitrostat Sl) 0.4 mg Q5M PRN SL CHEST PAIN; Start 05/12/17 at 19: 30 Furosemide (Lasix Inj) 60 mg ONCE ONCE IV PUSH Last administered on 05/12/17at 19:39; Start 05/12/17 at 19:30; Stop 05/12/17 at 19:31; Status DC Heparin Sodium (Porcine) (Heparin Inj) 4,000 units ONCE ONCE IV Last administered on 05/12/17at 19:32; Start 05/12/17 at 19:30; Stop 05/12/17 at 19:31; Status DC Heparin Sodium/ Dextrose 250 ml @ 10 mls/hr TITRATE PRN IV Coagulation Management Last administered on 05/12/17at 19:37; Start 05/12/17 at 19:30 Aspirin (Aspirin Chew) 324 mg ONCE ONCE CHEW Last administered on 05/12/17at 20: 40; Start 05/12/17 at 20:15; Stop 05/12/17 at 20:16; Status DC Sodium Chloride (NS Flush) 2 ml UNSCH PRN IV FLUSH FLUSH AFTER USING IV ACCESS ; Start 05/12/17 at 20:30 Sodium Chloride (NS Flush) 2 ml BID IV FLUSH ; Start 05/12/17 at 21:00 Naloxone HCl (Narcan Inj) 0.4 mg UNSCH PRN IV PUSH SEE LABEL COMMENTS; Start at 20:30 Furosemide (Lasix Inj) 40 mg BID@09,18 IV PUSH Last administered on 05/13/17at 08:15; Start 05/13/17 at 09:00 Potassium Chloride (KCl) 40 meq ONCE ONCE PO Last administered on 05/12/17at 21: 56; Start 05/12/17 at 21:00; Stop 05/12/17 at 21:12; Status DC Amlodipine Besylate (Norvasc) 5 mg DAILY PO Last administered on 05/13/17at 08: 14; Start 05/13/17 at 09:00 Aspirin (Aspirin Chew) 81 mg DAILY CHEW Last administered on 05/13/17at 08:14; Start 05/13/17 at 09:00 Carvedilol (Coreg) 3.125 mg BID PO Last administered on 05/13/17at 08:14; Start 05/13/17 at 09:00 Potassium Chloride (KCl) 10 meq EVERY OTHER DAY PO ; Start 05/14/17 at 09:00 Pravastatin Sodium (Pravachol) 40 mg DAILY PO Last administered on 05/13/17at 08 :14; Start 05/13/17 at 09:00 Pregabalin (Lyrica) 75 mg BID PO Last administered on 05/13/17at 08:14; Start at 09:00 Patient Own Medication PT OWN MED: Lenalidomide (Revlim... 3 weeks on 1 week of PO ; Start 05/12/17 at 23:00; Status Future Hold Pantoprazole Sodium (Protonix) 20 mg DAILY PO ; Start 05/13/17 at 09:00 Albuterol/ Ipratropium (Duoneb Neb) 1 ampule Q4HR NEB PRN NEB wheezing; Start 05/12/17 at 23:00 Acetylcysteine (Mucomyst 20% Liq) 1,200 mg BID PO ; Start 05/13/17 at 12:15; Status Cancel Acetylcysteine (Mucomyst 20% Liq) 6 ml BID PO Last administered on 05/13/17at 13 :28; Start 05/13/17 at 12:30 Active Ordered Medications Current Medications Aspirin (Aspirin Chew) 243 mg ONCE ONCE CHEW ; Start 05/12/17 at 19:30; Stop 05/12/17 at 20:15; Status DC Nitroglycerin (Nitroglycerin 2% Oint) 1 inch ONCE ONCE TOPICAL Last administered on 05/12/17at 19:33; Start 05/12/17 at 19:30; Stop 05/12/17 at 19:31; Status DC Nitroglycerin (Nitrostat Sl) 0.4 mg Q5M PRN SL CHEST PAIN; Start 05/12/17 at 19: 30 Furosemide (Lasix Inj) 60 mg ONCE ONCE IV PUSH Last administered on 05/12/17at 19:39; Start 05/12/17 at 19:30; Stop 05/12/17 at 19:31; Status DC Heparin Sodium (Porcine) (Heparin Inj) 4,000 units ONCE ONCE IV Last administered on 05/12/17at 19:32; Start 05/12/17 at 19:30; Stop 05/12/17 at 19:31; Status DC Heparin Sodium/ Dextrose 250 ml @ 10 mls/hr TITRATE PRN IV Coagulation Management Last administered on 05/12/17at 19:37; Start 05/12/17 at 19:30 Aspirin (Aspirin Chew) 324 mg ONCE ONCE CHEW Last administered on 05/12/17at 20: 40; Start 05/12/17 at 20:15; Stop 05/12/17 at 20:16; Status DC Sodium Chloride (NS Flush) 2 ml UNSCH PRN IV FLUSH FLUSH AFTER USING IV ACCESS ; Start 05/12/17 at 20:30 Sodium Chloride (NS Flush) 2 ml BID IV FLUSH ; Start 05/12/17 at 21:00 Naloxone HCl (Narcan Inj) 0.4 mg UNSCH PRN IV PUSH SEE LABEL COMMENTS; Start at 20:30 Furosemide (Lasix Inj) 40 mg BID@09,18 IV PUSH Last administered on 05/13/17at 08:15; Start 05/13/17 at 09:00 Potassium Chloride (KCl) 40 meq ONCE ONCE PO Last administered on 05/12/17at 21: 56; Start 05/12/17 at 21:00; Stop 05/12/17 at 21:12; Status DC Amlodipine Besylate (Norvasc) 5 mg DAILY PO Last administered on 05/13/17at 08: 14; Start 05/13/17 at 09:00 Aspirin (Aspirin Chew) 81 mg DAILY CHEW Last administered on 05/13/17at 08:14; Start 05/13/17 at 09:00 Carvedilol (Coreg) 3.125 mg BID PO Last administered on 05/13/17at 08:14; Start 05/13/17 at 09:00 Potassium Chloride (KCl) 10 meq EVERY OTHER DAY PO ; Start 05/14/17 at 09:00 Pravastatin Sodium (Pravachol) 40 mg DAILY PO Last administered on 05/13/17at 08 :14; Start 05/13/17 at 09:00 Pregabalin (Lyrica) 75 mg BID PO Last administered on 05/13/17at 08:14; Start at 09:00 Patient Own Medication PT OWN MED: Lenalidomide (Revlim... 3 weeks on 1 week of PO ; Start 05/12/17 at 23:00; Status Future Hold Pantoprazole Sodium (Protonix) 20 mg DAILY PO ; Start 05/13/17 at 09:00 Albuterol/ Ipratropium (Duoneb Neb) 1 ampule Q4HR NEB PRN NEB wheezing; Start 05/12/17 at 23:00 Acetylcysteine (Mucomyst 20% Liq) 1,200 mg BID PO ; Start 05/13/17 at 12:15; Status Cancel Acetylcysteine (Mucomyst 20% Liq) 6 ml BID PO Last administered on 05/13/17at 13 :28; Start 05/13/17 at 12:30 Family History Family history of hypertension. Social History Discontinue tobacco use greater than 10 years. Denies current alcohol use. Physical Exam Vital Signs Vital Signs Date Time Temp Pulse Resp B/P (MAP) Pulse Ox O2 Delivery O2 Flow Rate FiO2 05/13/17 16:28 99.4 66 18 108/60 (76) 94 05/13/17 15:00 62 05/13/17 14:00 80 05/13/17 13:00 66 05/13/17 12:21 99.0 64 18 97/57 (70) 96 05/13/17 10:03 94 21 05/13/17 08:30 98.7 68 18 117/63 (81) 97 05/13/17 04:00 66 05/13/17 04:00 99.2 66 20 111/62 (78) 98 05/13/17 02:22 77 05/13/17 01:29 (68) 2.00 05/13/17 01:10 99.5 70 22 122/60 (80) 99 05/13/17 00:28 18 98 05/12/17 21:56 72 18 101/52 (68) 96 2.00 Physical Exam GENERAL: Elderly gentleman lying in bed not in respiratory distress currently. SKIN: Warm and dry. HEAD: Normocephalic. EYES: No scleral icterus. No injection or drainage. NECK: Supple, trachea midline. No JVD or lymphadenopathy. CARDIOVASCULAR: Regular rate and rhythm without murmurs, gallops, or rubs. RESPIRATORY: Breath sounds equal bilaterally. No accessory muscle use. GASTROINTESTINAL: Abdomen soft, non-tender, nondistended. MUSCULOSKELETAL: No cyanosis, 2+ pitting edema of the legs bilaterally improved however compared to yesterday. BACK: Nontender without obvious deformity. No CVA tenderness. Laboratory Laboratory Tests Test 05/12/17 17:37 05/12/17 23:43 05/13/17 01:47 05/13/17 10:43 White Blood Count 5.6 4.8 Red Blood Count 3.12 2.83 Hemoglobin 9.0 8.5 Hematocrit 27.5 25.2 Mean Corpuscular Volume 88.2 88.8 Mean Corpuscular Hemoglobin 29.1 29.9 Mean Corpuscular Hemoglobin Concent 32.9 33.7 Red Cell Distribution Width 15.5 15.6 Platelet Count 216 214 Mean Platelet Volume 9.0 8.7 Neutrophils (%) (Auto) 52.3 39.2 Lymphocytes (%) (Auto) 31.6 43.1 Monocytes (%) (Auto) 13.4 12.7 Eosinophils (%) (Auto) 1.7 3.9 Basophils (%) (Auto) 1.0 1.1 Neutrophils # (Auto) 2.9 1.9 Lymphocytes # (Auto) 1.8 2.1 Monocytes # (Auto) 0.8 0.6 Eosinophils # (Auto) 0.1 0.2 Basophils # (Auto) 0.1 0.1 CBC Comment DIFF FINAL DIFF FINAL Differential Comment Prothrombin Time 11.9 Prothromb Time International Ratio 1.2 Activated Partial Thromboplast Time 33.2 39.8 37.8 Blood Urea Nitrogen 27 29 Creatinine 2.03 2.01 Random Glucose 102 100 Total Protein 7.6 Albumin 2.9 Calcium Level 8.4 7.9 Magnesium Level 2.1 Alkaline Phosphatase 67 Aspartate Amino Transf (AST/SGOT) 52 Alanine Aminotransferase (ALT/SGPT) 30 Total Bilirubin 0.5 Sodium Level 140 145 Potassium Level 3.4 3.4 Chloride Level 107 111 Carbon Dioxide Level 20.9 21.9 Anion Gap 12 12 Estimat Glomerular Filtration Rate 32 32 Total Creatine Kinase 377 270 276 Creatine Kinase MB 5.4 Creatine Kinase MB % 1.4 Troponin I 9.75 9.28 9.68 6.78 B-Type Natriuretic Peptide 1702 0763 Test 05/13/17 12:00 Urine Color LIGHT-YELLOW Urine Turbidity CLEAR Urine pH 5.0 Urine Specific Copen 1.007 Urine Protein NEG Urine Glucose (UA) NEG Urine Ketones NEG Urine Occult Blood SMALL Urine Nitrite NEG Urine Bilirubin NEG Urine Urobilinogen LESS THAN 2.0 Urine Leukocyte Esterase NEG Urine RBC 1 Urine Squamous Epithelial Cells <1 Urine Hyaline Casts 1 Urine Mucus FEW Result Diagram: 05/13/17 0147 05/13/17 014 Imaging Last 48 hours Impressions Chest X-Ray 05/12/17 1659 Signed Impressions: Service Date/Time: Friday, May 12, 2017 17:08 - CONCLUSION: 1. Small bilateral pleural effusions. 2. Mild patchy opacity at both lung bases with no focal consolidation. 3. No perihilar edema. Sandor Wolf MD Assessment and Plan Problem List: (1) CKD (chronic kidney disease) stage 3, GFR 30-59 ml/min ICD Codes: N18.3 - Chronic kidney disease, stage 3 (moderate) Status: Chronic Plan: Related primarily to nephrosclerosis of hypertension and aging with probable component related to multiple myeloma with associated heavy proteinuria previously. Patient's renal indices have deteriorated somewhat above his usual baseline possibly related to his cardiac decompensation. Estimated wrist the patient developing contrast nephrotoxicity would be approximately 50% with about 12% risk of the patient requiring dialysis post contrast exposure as discussed with him. The patient accepts these risks on discussion with him and his . Fluid overload precludes hydration prior to procedure. I have initiated therapy however with Mucomyst 1200 mg twice a day. Also recommend using low osmolal contrast agent and the minimal amount of contrast agent if possible. 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 Medications should be adjusted for the patient's estimated GFR if clinically indicated. Avoid agents with significant potential for nephrotoxicity possible including NSAIDs for analgesia, iodine contrast agents. Gadolinium is contraindicated if the GFR is below 30. (2) Non-STEMI (non-ST elevated myocardial infarction) ICD Codes: I21.4 - Non-ST elevation (NSTEMI) myocardial infarction Status: Acute Plan: Discussion with patient as above. Management per cardiology. (3) Anemia Plan: Likely related to a combination of his chronic kidney disease and multiple myeloma. We'll check iron stores. (4) New onset of congestive heart failure ICD Codes: I50.9 - Heart failure, unspecified Status: Acute Plan: Continue diuretic therapy with monitoring of volume status and renal indices. Await results of 2-D echocardiogram. (5) Multiple myeloma, without mention of having achieved remission ICD Codes: C90.00 - Multiple myeloma not having achieved remission Deedee Lizama MD May 13, 2017 16:56
[2017-05-13] MEDS: HEPARIN-D5W 25,000 U/250 ML 250 ML IV PRN (18:38)
--- NOTE | 2017-05-13 20:17 | ECHRPT ---
Indication: CHF CONCLUSIONS The left ventricular systolic function is mildly reduced with an estimated ejection fraction of 45%. Normal left ventricular size. Moderate concentric left ventricular hypertrophy. The left atrial size is [id number] dilated. Moderate mitral valve regurgitation. Moderate thickening of the aortic valve leaflets. Mild aortic valve regurgitation. There is trace tricuspid valve regurgitation. The estimated pulmonary arterial pressure is 40 mmHg. Trivial pulmonary valve regurgitation. BP: 111 / 62 HR: 66 Rhythm: Sinus MEASUREMENTS (Male / Female) Normal Values Technical Quality:Good 2D ECHO LV Diastolic Diameter PLAX 4.4 cm 4.2 - 5.9 / 3.9 - 5.3 cm LV Systolic Diameter PLAX 3.8 cm IVS Diastolic Thickness 1.5 cm 0.6 - 1.0 / 0.6 - 0.9 cm LVPW Diastolic Thickness 1.5 cm 0.6 - 1.0 / 0.6 - 0.9 cm LV Relative Wall Thickness 0.7 RV Internal Dim ED PLAX 3.0 cm LVOT Diameter 1.9 cm LA Systolic Diameter LX 4.4 cm 3.0 - 4.0 / 2.7 - 3.8 cm LV Ejection Fraction MOD 4C 30.5 % LV Cardiac Index MOD 4C 1610.7 cm/minm LV Ejection Fraction 4C AL 32.4 % LV Cardiac Index 4C AL 1776.4 cm/minm M-MODE Aortic Root Diameter MM 3.1 cm LA Systolic Diameter MM 4.5 cm LA Ao Ratio MM 1.5 AV Cusp Separation MM 1.6 cm DOPPLER AV Peak Velocity 189.0 cm/s AV Peak Gradient 14.3 mmHg AI Peak Velocity 227.0 cm/s AI Peak Gradient 20.6 mmHg AI Pressure Half Time 1911.0 ms LVOT Peak Velocity 91.8 cm/s LVOT Peak Gradient 3.4 mmHg AV Area Cont Eq pk 1.4 cm MV Area PHT 3.6 cm Mitral E Point Velocity 92.8 cm/s Mitral A Point Velocity 82.9 cm/s Mitral E to A Ratio 1.1 LV E' Lateral Velocity 9.6 cm/s Mitral E to LV E' Lateral Ratio 9.7 LV E' Septal Velocity 6.2 cm/s Mitral E to LV E' Septal Ratio 14.9 TR Peak Velocity 273.0 cm/s TR Peak Gradient 29.8 mmHg Right Atrial Pressure 10.0 mmHg Pulmonary Artery Systolic Pressu 39.8 mmHg Right Ventricular Systolic Press 39.8 mmHg PV Peak Velocity 96.4 cm/s PV Peak Gradient 3.7 mmHg FINDINGS LEFT VENTRICLE The left ventricular systolic function is mildly reduced with an estimated ejection fraction of 45%. Normal left ventricular size. Moderate concentric left ventricular hypertrophy. RIGHT VENTRICLE Normal right ventricular size and systolic function. LEFT ATRIUM The left atrial size is [id number] dilated. RIGHT ATRIUM The right atrial size is normal. ATRIAL SEPTUM Normal atrial septal thickness without atrial level shunting by limited color doppler interrogation. AORTA The aortic root and proximal ascending aorta are normal in size on limited imaging. MITRAL VALVE Structurally normal mitral valve. Moderate mitral valve regurgitation. . AORTIC VALVE Trileaflet aortic valve. Moderate thickening of the aortic valve leaflets. Mild aortic valve regurgitation. TRICUSPID VALVE Structurally normal tricuspid valve. There is trace tricuspid valve regurgitation. The estimated pulmonary arterial pressure is 39.8 mmHg. PULMONARY VALVE Trivial pulmonary valve regurgitation. VESSELS The inferior vena cava is normal in size. PERICARDIUM No pericardial effusion. Skylar Hernandez MD, FACC (Electronically Signed) Final Date:13 May 2017 20:15
--- NOTE | 2017-05-13 21:17 | EKG ---
Date Performed: 05/13/2017 Time Performed: 04:53:12 PTAGE: 77 years EKG: Sinus rhythm with PVC(s) Prolonged QT interval Extensive ST-T changes may be due to myocardial ischemia Abnormal ECG PREVIOUS TRACING : 05/12/2017 23.33 Compared to prior tracing no significant change DOCTOR: Skylar Hernandez Interpretating Date/Time 05/13/2017 21:15:42
--- NOTE | 2017-05-13 21:33 | EKG ---
Date Performed: 05/12/2017 Time Performed: 23:33:56 PTAGE: 77 years EKG: Sinus rhythm WITH FREQUENT VENTRICULAR PREMATURE COMPLEXES MARKED LEFT AXIS DEVIATION INCOMPLETE RIGHT BUNDLE BRA NCH BLOCK ST DEVIATION AND MODERATE T-WAVE ABNORMALITY ABNORMAL ECG PREVIOUS TRACING : 05/12/2017 17.35 Compared to the previous tracing PVCs present DOCTOR: Skylar Hernandez Interpretating Date/Time 05/13/2017 21:31:10
--- NOTE | 2017-05-13 21:56 | EKG ---
Date Performed: 05/12/2017 Time Performed: 17:35:16 PTAGE: 77 years EKG: Sinus rhythm WITH SINUS ARRHYTHMIA INFERIOR MYOCARDIAL INFARCTION ABNORMAL ECG PREVIOUS TRACING : 04/04/2009 08.36 Compared to prior tracing no significant change DOCTOR: Skylar Hernandez Interpretating Date/Time 05/13/2017 21:56:24
[2017-05-13] MEDS: ATORVASTATIN 40 MG TAB PO SCH (23:16)
[2017-05-14] VITALS (28 sets, daily range): BP systolic 108–123; BP diastolic 55–71; PULSE 51–75; RESP 16–18; TEMP 97.2–99.2; O2SAT 94–98
[2017-05-14 07:18] LABS: BICARBONATE 21.3 MEQ/L (21.0-32.0); BLOOD UREA NITROGEN 29 MG/DL (7-18); CALCIUM 7.9 MG/DL (8.5-10.1); CHLORIDE 112 MEQ/L (98-107); CREATININE 2.07 MG/DL (0.60-1.30); GLOMERULAR FILTRATION RATE 31 ML/MIN (>89); GLUCOSE,RANDOM 108 MG/DL (74-106); IRON (FE) 23 MCG/DL (65-175); SODIUM (NA) 144 MEQ/L (136-145)
[2017-05-14 07:21] LABS: % SATURATION IRON PROFILE 11.7 % (20-50); FERRITIN 248 NG/ML (26-388); TOTAL IRON BINDING CAPACITY 197 MCG/DL (250-450)
[2017-05-14] MEDS: CARVEDILOL 3.125 MG TAB PO SCH ×2 (08:10→21:15)
[2017-05-14] MEDS: POTASSIUM CHLORIDE 10 MEQ CAP PO SCH (08:10)
[2017-05-14] MEDS: PREGABALIN 75 MG CAP PO SCH ×2 (08:11→21:15)
[2017-05-14] MEDS: amLODIPine BESYLATE 5 MG TAB PO SCH (08:11)
[2017-05-14] MEDS: ASPIRIN 81 MG CHEW TAB CHEW SCH (08:11)
[2017-05-14] MEDS: PANTOPRAZOLE SOD 20 MG DELAYED RELEASE TAB PO SCH (08:11)
[2017-05-14] MEDS: FUROSEMIDE 40 MG/4 ML VIAL IV PUSH SCH ×2 (08:14→17:19)
[2017-05-14] MEDS: SODIUM CHLORIDE 0.9% FLUSH 10 ML FLUSH IV FLUSH SCH ×3 (08:17→21:00)
[2017-05-14] MEDS: ACETYLCYSTEINE 20% ORAL SOLN 4 ML VIAL PO SCH ×3 (09:00→21:16)
[2017-05-14] MEDS ORDERED: POTASSIUM CHLORIDE 10 MEQ CONTROLLED RELEASE TAB PO ONE (12:30)
[2017-05-14] MEDS ORDERED: MIDAZOLAM HCL 2 MG/2 ML VIAL ONE (12:36)
--- NOTE | 2017-05-14 13:11 | CATHPROC ---
[facility] HIS Report Study Information Study Number Admission Scheduled Start Study Start [id number] May 12 2017 8:27PM 05/13/2017 May 14 2017 12:15PM [place] [facility] Cardiac Catheterization Admit Source Facility Department Emergency department [facility] - Manager Home Physician and Clinical Staff Initial Aniket Merritt Model Set Artist Curtis WILLS, Booker Verduzco cathlab, cathlab Recorder Hossein Chino RCIS(BS) Scrub Cristina Wright,LOOM CHANGEOVER OPERATOR TECH2 Procedures Performed Procedure Location (Site) Vessel Name Coronary Angiograms LCA Left Coronary Coronary Angiograms RCA Right Coronary L Heart Cath LV Gram-hand inj. LV LV Ventricle Equipment Time E Commerce Developer Description Size Mfg Part Number Used/Scraped TRANSDUCER, TRUWAVE [id number] 12:17 MEZA FORD * Used W/STOCKCOCK *[id number] INTRODUCER SET, 12:17 [employer] FR 5 [id number] *[id number] Used MICROPUNCTURE, STIFFENED [id number] *[id number] [id number] *[id number] [id number] *[id number] 12:17 [employer] INDUSTRIES PACK, CCL CUSTOM * Used *[id number] 12:17 M[employer]ize PACER PEN, SKIN DUAL W/ RULER * Used *[id number] 12:17 [employer] SHEATH, FR6.5 PRELUDE 11CM FR 6.5 038ACT Used *[id number] 12:17 [employer] MEDICAL WIRE, 3MMJ .035 180CM 180CM Used *[id number] 12:17 NAMIC MANIFOLD, 4 PORT * Used *[id number] 12:17 NAMIC TUBING, HIGH PRESSURE 20" 20" Used *[id number] 12:17 [employer]COMED OMNIPAQUE, 350 MG, 150ML 150ML [id number] Used [id number] 12:17 [employer] BLANKET,WARM AIR CCL * Used *[id number] History: Current Medications Medication Dosage/Unit Route Frequency Last Date/Time Taken Statins (any) Beta Ary ASA History: Allergies Allergy Reaction No Known Allergies History: Risk Factors Family History of Hypertension Dyslipidemia Previous KS Previous Heart Failure Premature CAD Yes Yes Yes Yes No Prior Valve Prior PCI Prior CABG Surgery No No No Cerebrovascular Peripheral Artery Chronic Lung On Dialysis Diabetes Disease Disease Disease No No Yes Yes No History: Symptoms/Diagnosis Selection Items Chest pain History: Stress Tests Stress or Imaging Studies Performed No History: Other Disease Selection Items CAD HTN History: Other Current Smoker Quit Packs a Day Years Used Pack Years No 26 Years Ago 1 30 30 Labs Hgb (g/dl) Hct (%) WBC (l/cumm) Platelets (thousands) 11.60-17.00 35.00-51.00 4.00-11.00 150.00-450.00 8.5 25.2 4.8 214 Glucose (mg/dl) BUN (mg/dl) Creatinine (mg/dl) BUN:Creatinine (1:x) 74.00-106.00 7.00-18.00 0.50-1.30 10.00-20.00 108 29 2.0 14.5 Na (meq/l) K (meq/l) 136.00-145.00 3.50-5.10 144 3.2 INR (PTT:PT) 0.90-1.10 1.2 Troponin I (ng/ml) CPK (u/l) CPK-MB (ng/ML) 0.02-0.05 26.00-308.00 0.50-3.60 6.78 276 5.4 Medication Medication Total Dose (Bolus/Oral) Medication Total Dosage/Unit 1% XYLOCAINE 20 mL FENTANYL 50 mcg VERSED 0.25 mg Medications (Bolus/Oral) Medication Time Given Dosage/Unit Administered By Reason FENTANYL 05/14/2017 12:42:00 PM 50 mcg Booker Acevedo RN 50 mcg FENTANYL given in lab by Booker Acevedo RN in Left Antecubital via Peripheral IV. Ordered by Aniket Ewing. VERSED 05/14/2017 12:42:42 PM 0.25 mg Booker Acevedo RN 0.25 mg VERSED given in lab by Booker Acevedo RN in Left Antecubital via Peripheral IV. Ordered by Aniket Clifton. 1% XYLOCAINE 05/14/2017 12:43:27 PM 20 mL Aniket Clifton 20 mL 1% XYLOCAINE given in lab by Aniket Clifton in Right Groin via Subcutaneous. Medication (Drip) Medication Time Given Dosage/Unit Concentration/Unit Diluent (ml) Solutio n IV Solutions 05/14/2017 12:15:44 PM 0 mL (IV) 500 NaCl .9 Patient arrived on IV Solutions given by [email or web address] in Left Antecubital via Peripheral IV. Pump /Drip Flow = 20 ml/hr using NaCl .9. Ordered by Aniket Clifton. Initial Case Assessment Cardiovascular HR Rhythm NIBP Chest Pain 63 nsr 118/54 0 Edema Present Skin color Skin None Normal Warm Dry Circulatory - Right Pulses Dorsalis Pedis Femoral 3 3 Scale (0,1,2,3,4,d) Circulatory - Left Pulses Dorsalis Pedis Femoral 3 3 Scale (0,1,2,3,4,d) Neurological State Oriented to time-place- Alert Moves all extremities person Respiration - General Respiration Rate SpO2 (%) (B/min) 15 95 Final Case Assessment Cardiovascular HR Rhythm NIBP Chest Pain 61 nsr 116/55 0 Edema Present Skin color Skin None Normal Warm Dry Circulatory - Right Pulses Dorsalis Pedis Femoral 3 3 Scale (0,1,2,3,4,d) Circulatory - Left Pulses Dorsalis Pedis Femoral 3 3 Scale (0,1,2,3,4,d) Neurological State Oriented to time-place- Alert Moves all extremities person Respiration - General Respiration Rate SpO2 (%) (B/min) 15 95 Chronological Log Time Study Chronological Log 12:15:34 Patient arrived via Bed. 12:15:36 Patient Name, D.O.B, / Armband Verified By R.N. 12:15:36 Consent signed by the physician and the patient and verified by the Manager Home staff. 12:15:37 Pre-op and post- op instructions given; patient acknowledges understanding of instructions. 12:15:37 Verbal Stimulation=2 Physical Stimulation=2 Airway=2 Respiration=2 TOTAL=8. (0=absent, 1=li mited, 2=present) 12:15:38 Presedation assessment performed by Manager Home RN. 12:15:39 Immediate Presedation assesment performed by physician. 12:15:39 Patient has been NPO for More than 6Hrs. 12:15:40 Skin Breakdown- none per patient 12:15:41 Patient Warmer Placed on the Table. 12:15:42 Barbara Prominences Protected 12:15:44 A # 20 IV was noted in the Antecubital (left). Grade = 0 Patient arrived on IV Solutions given by cathlab, cathlab in Left Antecubital via Peripheral IV . Pump/Drip Flow = 20 12:15:44 ml/hr using NaCl .9. Ordered by Aniket Clifton. 12:15:45 History and physical on the chart or being dictated. Vitals capture started with the following parameters, Patient=Adult, Interval=5 min, Initial Pr mdyedk=723 mmHg, 12:22:52 Deflation Rate=5 mmHg, Cuff placed on Left Arm 12:23:25 WEFZ=939/72 mmhg, Pain=0, Danette=10, Naidu=2 12:27:51 Reference ECG taken Assessment: Initial Case, HR=63 BPM, Rhythm=nsr, QGDU=574/54 mmhg, Chest Pain=0, Edema=None, Co brenda=Normal, Skin = Warm, Dry Right Pulses: Luis Ped=3, Femoral=3 12:28:00 Left Pulses: Luis Ped=3, Femoral=3 Neurological: State=Alert, Ox3, MUNGUIA Respiration: Resp=15 B/min, SpO2=95 % 12:28:28 HR=59 bpm, ITZW=299/54 mmhg, SpO2=95 %, Resp=15 B/min, Pain=0, Danette=10, Naidu=2 12:29:30 Bilateral groins prepped with 2% chlorhexidine, and draped after a 3 minute waiting time. 12:33:12 Pressure channel 1 zeroed. 12:33:30 HR=66 bpm, GOTK=372/62 mmhg, SpO2=96 %, Resp=15 B/min, Pain=0, Danette=10, Naidu=2 12:38:31 HR=57 bpm, KPRV=358/62 mmhg, SpO2=95 %, Resp=20 B/min, Pain=0, Danette=10, Naidu=2 12:39:20 MD arrived. 12:40:42 Contrast Scanned 12:40:43 Immediate Presedation assesment performed by physician. Time Out. Correct patient, correct procedure, correct physician, power injector not loaded with contrast with surgical 12:40:43 team present. Time Out Concurred by MD and individual staff in procedure. 12:42:00 50 mcg FENTANYL given in lab by Booker Acevedo RN in Left Antecubital via Peripheral IV. Orde red by Aniket Clifton. 12:42:35 Case Start 12:42:35 Verbal Stimulation=2 Physical Stimulation=2 Airway=2 Respiration=2 TOTAL=8. (0=absent, 1=li mited, 2=present) 12:42:42 0.25 mg VERSED given in lab by Booker Acevedo RN in Left Antecubital via Peripheral IV. Order ed by Aniket Clifton. 12:43:27 20 mL 1% XYLOCAINE given in lab by Aniket Clifton in Right Groin via Subcutaneous. 12:44:04 HR=53 bpm, LSFX=410/66 mmhg, SpO2=99.0 %, Resp=18 B/min, Pain=0, Danette=10, Naidu=2 12:45:48 Access site was Right Femoral Artery. A INTRODUCER SET, MICROPUNCTURE, STIFFENED FR 5 was advanced into the Fem Art (right) using the 12:45:54 Percutaneous technique. A SHEATH, FR6.5 PRELUDE 11CM FR 6.5 was exchanged in the Fem Art (right). This was necessary in order to 12:45:59 accomodate a larger catheter. A JL 4.0 INFINITI CATHETER FR 6 was advanced over a wire. OMNIPAQUE, 350 MG, 150ML 150ML was us ed for 12:47:51 injections. 12:48:33 HR=51 bpm, BOWJ=137/58 mmhg, SpO2=97.0 %, Resp=18 B/min, Pain=0, Danette=10, Naidu=2 Recorded Pressure: Ao, HR=59, Condition=Condition 1 12:49:09 (Aorta) Ao 119/52/80 12:49:19 The LCA was injected and visualized at various angles. OMNIPAQUE, 350 MG, 150ML 150ML used . After removing the current catheter a JR 4.0 INFINITI CATHETER FR 6 was advanced over a WIRE, 3 MMJ .035 180CM 12:50:38 180CM. 12:52:40 The RCA was injected and visualized at various angles. OMNIPAQUE, 350 MG, 150ML 150ML used . 12:53:36 HR=55 bpm, UUZC=616/55 mmhg, SpO2=93.0 %, Resp=15 B/min, Pain=0, Danette=10, Naidu=2 After removing the current catheter a PIGTAIL STR INFINITI CATHETER FR 6 was advanced over a WI RE, 3MMJ .035 12:53:50 180CM 180CM. Recorded Pressure: LV, HR=66, Condition=Condition 1 12:55:38 (Left Ventricle) LV 123/10/23 12:56:06 The LV was manually injected with 10 cc's and visualized. OMNIPAQUE, 350 MG, 150ML 150ML us ed. Recorded Pressure: LV, Ao, HR=62, Condition=Condition 1 12:56:31 (Left Ventricle) LV 124/10/23, (Aorta) Ao 126/54/86 12:56:44 Catheter was removed 12:57:19 Case End Assessment: Final Case, HR=61 BPM, Rhythm=nsr, PHIT=829/55 mmhg, Chest Pain=0, Edema=None, Col or=Normal, Skin = Warm, Dry Right Pulses: Luis Ped=3, Femoral=3 12:57:31 Left Pulses: Luis Ped=3, Femoral=3 Neurological: State=Alert, Ox3, MUNGUIA Respiration: Resp=15 B/min, SpO2=95 % 12:57:47 Catheter(s) removed without difficulty 12:57:49 No case complications noted. 12:57:50 Cine recording checked. 12:57:52 Bedside Report will be given. 12:57:54 Contrast Scanned 12:57:55 Verbal Stimulation=2 Physical Stimulation=2 Airway=2 Respiration=2 TOTAL=8. (0=absent, 1=l imited, 2=present) 12:58:04 A Left Heart Cath was performed. 12:58:31 HR=56 bpm, HRAW=603/66 mmhg, SpO2=89.0 %, Resp=15 B/min, Pain=0, Danette=10, Naidu=2 13:03:34 HR=58 bpm, DRNN=814/60 mmhg, SpO2=89.0 %, Resp=13 B/min, Pain=0, Danette=10, Naidu=2 13:05:20 In the Fem Art (right) the SHEATH, FR6.5 PRELUDE 11CM FR 6.[address] by Cristina Wright, LOOM CHANGEOVER OPERATOR TECH2. 13:06:31 Sterile dressing applied to site 13:06:55 Vitals capture stopped. 13:06:56 Patient moved to stretcher End Study - Contrast Media Used In Study Contrast Total Opened (mL) Total Used (mL) Total Wasted (mL) Omnipaque 20 20 0 End Study - Maximum Contrast Load Max Contrast Load (mL) 208.8 End Study - Radiation Exposure Fluoro Time (minutes) 2.5 End Study - Patient Disposition Complications Transferred To Interventional Outcome No Telemetry Bed No attempt made
--- NOTE | 2017-05-14 13:17 | MA ---
cc: ELEAZAR ANDRES MD DATE 05/14/2017 PROCEDURE PERFORMED Coronary angiogram, left ventriculogram. INDICATIONS FOR PROCEDURE Non-ST elevation PR, congestive heart failure, unstable angina. COMPLICATIONS None BLOOD LOSS Estimated blood loss was less than 5 cc. PROCEDURE After informed consent and discussion of risks and benefits was explained, sheath was placed in the right common femoral under ultrasound guidance and using a micropuncture kit, coronary angiography was performed using standard sized Judkin's catheter. The pigtail catheter was used for ventriculography and left heart pressure measurements. Total contrast used was 20 cc. Given the patient's renal insufficiency, minimal contrast usage was done. HEMODYNAMIC Aortic pressure is 120/70. Left ventricular end-diastolic pressure was 30. There was a 5 mm gradient across the aortic valve. Left main is free of significant disease. Left anterior descending artery has a proximal 20-30% stenosis and a 99% stenosis of the LAD. The circumflex is subtotally occluded and goes on to give a large marginal. The right coronary artery is 90% occluded. Left ventriculogram performed in the standard ÁLVAREZ projection reveals an ejection fraction of 35-40%. IMPRESSION Significant triple-vessel disease with renal insufficiency and significantly decreased myocardial function. Recommend bypass surgery with HEAD to the LAD, vein grafts to the marginal and distal right. Dr. Shawna Vivas from CV surgery will be consulted. The sheath will be pulled manually. Further recommendations to follow hospital course. MD YAZMIN Sterling/AMAURI /12:57 PM /1:03 PM
--- NOTE | 2017-05-14 13:27 | HHI.PR ---
Subjective Remarks Follow up for NSTEMI, CHF. Patient was seen before cardiac catheterization today. Doing well. No acute concerns. Leg swelling down. Objective Vitals Vital Signs Date Time Temp Pulse Resp B/P (MAP) Pulse Ox O2 Delivery O2 Flow Rate FiO2 05/14/17 11:00 51 05/14/17 10:00 52 05/14/17 09:00 72 05/14/17 08:30 95 05/14/17 08:02 95 05/14/17 08:00 61 05/14/17 07:57 98.5 52 18 117/60 (79) 95 05/14/17 06:00 58 05/14/17 05:00 64 05/14/17 04:00 98.7 62 16 96 05/14/17 04:00 62 05/14/17 03:00 66 05/14/17 02:00 64 05/14/17 01:15 16 05/14/17 01:00 60 05/14/17 00:11 58 05/14/17 00:00 99.2 70 16 116/71 (86) 96 05/14/17 00:00 70 05/13/17 23:00 64 05/13/17 22:00 62 05/13/17 21:00 68 05/13/17 20:04 76 05/13/17 20:00 100.3 66 16 110/60 (77) 94 05/13/17 18:00 74 05/13/17 17:00 64 05/13/17 16:28 99.4 66 18 108/60 (76) 94 05/13/17 15:00 62 05/13/17 14:00 80 I/O 05/13/17 05/13/17 05/13/17 05/14/17 05/14/17 05/14/17 07:00 15:00 23:00 07:00 15:00 23:00 Intake Total 480 ml Output Total 625 ml 500 ml Balance -625 ml -20 ml Intake Oral 480 ml Output Urine Total 625 ml 500 ml Result Diagram: 05/13/17 0147 05/14/17 0611 Imaging Last Impressions Chest X-Ray 05/12/17 5990 Signed Impressions: Service Date/Time: Friday, May 12, 2017 17:08 - CONCLUSION: 1. Small bilateral pleural effusions. 2. Mild patchy opacity at both lung bases with no focal consolidation. 3. No perihilar edema. Sandor Wolf MD Objective Remarks GENERAL: Alert, Oriented x 3, NAD. SKIN: Warm and dry. HEAD: Normocephalic. EYES: No scleral icterus. No injection or drainage. NECK: Supple, trachea midline. No JVD or lymphadenopathy. CARDIOVASCULAR: Regular rate and rhythm without murmurs, gallops, or rubs. RESPIRATORY: Moderate air entry, bibasilar crackles. GASTROINTESTINAL: Abdomen soft, non-tender, nondistended. MUSCULOSKELETAL: No cyanosis. 2+ lower ext edema. BACK: Nontender without obvious deformity. No CVA tenderness. Procedures Echo 05/13/2017 The left ventricular systolic function is mildly reduced with an estimated ejection fraction of 45%. Normal left ventricular size. Moderate concentric left ventricular hypertrophy. The left atrial size is awya-[id number] dilated. Moderate mitral valve regurgitation. Moderate thickening of the aortic valve leaflets. Mild aortic valve regurgitation. There is trace tricuspid valve regurgitation. The estimated pulmonary arterial pressure is 40 mmHg. Trivial pulmonary valve regurgitation. A/P Problem List: (1) Non-STEMI (non-ST elevated myocardial infarction) ICD Code: I21.4 - Non-ST elevation (NSTEMI) myocardial infarction Status: Acute (2) New onset of congestive heart failure ICD Code: I50.9 - Heart failure, unspecified Status: Acute (3) Anemia ICD Code: D64.9 - Anemia, unspecified Status: Chronic Assessment and Plan Mr. Nicholas is a pleasant 77 year old male who presented to the ED due to increased shortness of breath, leg swelling. He was found to have NSTEMI as well. - Non-STEMI - Troponins are 9.28, 9.68, 6.78. - Continue heparin drip, aspirin 81mg Qday, Carvedilol 3.125mg BID. - Nitroglycerine PRN. - Patient is currently on Pravastatin 40mg Qday. We switched to Lipitor 40mg Qday. - Discussed with wharf labourer Dr. Clifton - patient has multivessel coronary artery disease and will be referred to cardiothoracic surgery. - New onset Congestive heart failure, likely systolic. - Echo shows EF 45%. - Continue beta el, aspirin, Lasix 40mg IV BID. - Consider Lisinopril since he does have reduced EF. - CKD stage III - Creatinine around 2.0. Nephrology started patient on Mucomyst. - Avoid nephrotoxins. - Discussed with that it would be beneficial to undergo cath despite the possibility of worsening kidney function. - Hypertension - continue Amlodipine 5mg Qday. Full code. Heparin drip. Ortiz Mccloud DO May 14, 2017 1:27 pm
[2017-05-14] MEDS ORDERED: IOHEXOL 350 MG/ML 50 ML BTL (for Cath Lab) OTHER ONE (14:17)
[2017-05-14] MEDS ORDERED: METOPROLOL TARTRATE 25 MG TAB PO SCH (14:45)
[2017-05-14] MEDS ORDERED: SODIUM CHLORIDE 0.9% FLUSH 10 ML FLUSH IV FLUSH PRN (15:15)
[2017-05-14] MEDS ORDERED: CEFAZOLIN INJ 500 MG in SODIUM CHLORIDE 0.9% IRR BTL 500 ML IRRIGATION SCH (15:15)
[2017-05-14] MEDS ORDERED: CHLORHEXIDINE GLUCONATE 4% SOLN 120 ML BTL TOPICAL SCH (15:15)
[2017-05-14] MEDS ORDERED: DEXTROSE 50% IN WATER 50 ML VIAL(D50) IV PUSH PRN (15:15)
[2017-05-14] MEDS ORDERED: ceFAZolin 2 GM PREMIX 50 ML IV SCH (15:15)
--- NOTE | 2017-05-14 15:29 | PD.CAR.PN ---
CVT Progress Note Subjective/Hospital Course: sts data discussed with pt RISK SCORES About the STS Risk Calculator Procedure: CAB Only Risk of Mortality: 13.922% Morbidity or Mortality: 48.31% Long Length of Stay: 28% Short Length of Stay: 10.683% Permanent Stroke: 3.115% Prolonged Ventilation: 31.119% DSW Infection: 0.999% Renal Failure: 21.373% Reoperation: 17.321% Objective: Vital Signs Date Time Temp Pulse Resp B/P (MAP) Pulse Ox O2 Delivery O2 Flow Rate FiO2 05/14/17 11:00 51 05/14/17 10:00 52 05/14/17 09:00 72 05/14/17 08:30 95 05/14/17 08:02 95 05/14/17 08:00 61 05/14/17 07:57 98.5 52 18 117/60 (79) 95 05/14/17 06:00 58 05/14/17 05:00 64 05/14/17 04:00 98.7 62 16 96 05/14/17 04:00 62 05/14/17 03:00 66 05/14/17 02:00 64 05/14/17 01:15 16 05/14/17 01:00 60 05/14/17 00:11 58 05/14/17 00:00 99.2 70 16 116/71 (86) 96 05/14/17 00:00 70 05/13/17 23:00 64 05/13/17 22:00 62 05/13/17 21:00 68 05/13/17 20:04 76 05/13/17 20:00 100.3 66 16 110/60 (77) 94 05/13/17 18:00 74 05/13/17 17:00 64 05/13/17 16:28 99.4 66 18 108/60 (76) 94 Labs: Laboratory Tests Test 05/14/17 06:11 05/14/17 13:00 Activated Partial Thromboplast Time 41.3 SEC (24.3-30.1) Blood Urea Nitrogen 29 MG/DL (7-18) Creatinine 2.07 MG/DL (0.60-1.30) Random Glucose 108 MG/DL (74-106) Calcium Level 7.9 MG/DL (8.5-10.1) Sodium Level 144 MEQ/L (136-145) Potassium Level 3.2 MEQ/L (3.5-5.1) 3.4 MEQ/L (3.5-5.1) Chloride Level 112 MEQ/L (98-107) Carbon Dioxide Level 21.3 MEQ/L (21.0-32.0) Anion Gap 11 MEQ/L (5-15) Estimat Glomerular Filtration Rate 31 ML/MIN (>89) Iron Level 23 MCG/DL (65-175) Total Iron Binding Capacity 197 MCG/DL (250-450) Percent Iron Saturation 11.7 % (20-50) Ferritin 248 NG/ML (26-388) B-Type Natriuretic Peptide 1873 PG/ML (0-100) Result Diagram: 05/13/17 0147 05/14/17 Judith Dumont May 14, 2017 15:29
[2017-05-14] MEDS ORDERED: INSULIN REGULAR (IV INFUSION) 100 UNITS in SODIUM CHLORIDE 0.9% INJ 99 ML IV PRN (16:00)
[2017-05-14] MEDS ORDERED: PAPAVERINE INJ 60 MG, NITROGLYCERIN INJ 100 MCG, DILTIAZEM INJ 100 MG in SODIUM CHLORID... IRRIGATION SCH (16:00)
--- NOTE | 2017-05-14 17:29 | HHI.NPPN ---
Subjective History of Present Illness This patient is a 77-year-old male with a history of known chronic kidney disease stage III with a baseline creatinine level of approximately 1.7-1.9. Patient's initial chronic kidney disease was related to nephrosclerosis of hypertension but the patient subsequently developed marked proteinuria with development of a monoclonal gammopathy and was subsequently diagnosis having superimposed myeloma which is being managed by the hematology department at the [facility] in [place]. Patient has been on Revlimid. More recently patient's proteinuria has been improving. Patient subsequently presented to my office however yesterday complaining of increasing lower extremity edema with dyspnea. Renal labs were pending at the time of presentation to the office yesterday. There was a history of a echocardiogram at the [facility] indicating preserved ejection fraction. Because of the severity of the patient's fluid retention with respiratory insufficiency he was advised to be admitted to the hospital for further evaluation and apparently had evidence of acute myocardial injury with elevated troponin levels. Patient denied any chest pain at time of presentation. He does have a history however of aphthous chronic heart disease as well as an abdominal aortic aneurysm. Also previous history of AAA repair. Interval History Pt s/p cardiac cath today. Showed significant 3 vessel disease and they have planned for CABG this coming Thursday. Pt on CPAP but is arousable. No complaints (Torrie Han) Review of Systems Cardiovascular Cardiac: Edema (Torrie Han) Objective Data Data 05/14/17 05/15/17 19:00 07:00 Intake Total 480 ml Output Total 500 ml Balance -20 ml Intake Oral 480 ml Output Urine Total 500 ml Vital Signs Date Time Temp Pulse Resp B/P (MAP) Pulse Ox O2 Delivery O2 Flow Rate FiO2 05/14/17 11:00 51 05/14/17 10:00 52 05/14/17 09:00 72 05/14/17 08:30 95 05/14/17 08:02 95 05/14/17 08:00 61 05/14/17 07:57 98.5 52 18 117/60 (79) 95 05/14/17 06:00 58 05/14/17 05:00 64 05/14/17 04:00 98.7 62 16 96 05/14/17 04:00 62 05/14/17 03:00 66 05/14/17 02:00 64 05/14/17 01:15 16 1/11/18 01:00 60 05/14/17 00:11 58 05/14/17 00:00 99.2 70 16 116/71 (86) 96 05/14/17 00:00 70 05/13/17 23:00 64 05/13/17 22:00 62 05/13/17 21:00 68 05/13/17 20:04 76 05/13/17 20:00 100.3 66 16 110/60 (77) 94 05/13/17 18:00 74 (Torrie Han) -: 05/13/17 0147 05/14/17 1300 Imaging Last Impressions Chest X-Ray 05/12/17 1659 Signed Impressions: Service Date/Time: Friday, May 12, 2017 17:08 - CONCLUSION: 1. Small bilateral pleural effusions. 2. Mild patchy opacity at both lung bases with no focal consolidation. 3. No perihilar edema. Sandor Wolf MD Medication Review Current Medications Medications (Trade) Dose Ordered Sig/Elio Route Start Time Stop Time Status Last Admin (Nitrostat Sl) 0.4 mg Q5M PRN SL 05/12/17 19:30 Heparin Sodium/ Dextrose 250 ml @ 10 mls/hr TITRATE PRN IV 05/12/17 19:30 05/13/17 18:38 (NS Flush) 2 ml UNSCH PRN IV FLUSH 05/12/17 20:30 (NS Flush) 2 ml BID IV FLUSH 05/12/17 21:00 05/14/17 08:17 (Narcan Inj) 0.4 mg UNSCH PRN IV PUSH 05/12/17 20:30 (Lasix Inj) 40 mg BID@,18 IV PUSH 05/13/17 09:00 05/14/17 08:14 (Norvasc) 5 mg DAILY PO 05/13/17 09:00 05/14/17 08:11 (Aspirin Chew) 81 mg DAILY CHEW 05/13/17 09:00 05/14/17 08:11 (Coreg) 3.125 mg BID PO 05/13/17 09:00 05/14/17 08:10 (KCl) 10 meq EVERY OTHER DAY PO 05/14/17 09:00 05/14/17 08:10 (Lyrica) 75 mg BID PO 05/13/17 09:00 05/14/17 08:11 Patient Own Medication PT OWN MED: Lenalidomide (Revlim... 3 weeks on 1 week of PO 05/12/17 23:00 Future Hold (Protonix) 20 mg DAILY PO 05/13/17 09:00 05/14/17 08:11 (Duoneb Neb) 1 ampule Q4HR NEB PRN NEB 05/12/17 23:00 (Mucomyst 20% Liq) 6 ml BID PO 05/13/17 12:30 05/14/17 09:00 (Lipitor) 40 mg HS PO 05/13/17 21:00 05/13/17 23:16 (NS Flush) 2 ml BID IV FLUSH 05/14/17 21:00 (NS Flush) 2 ml UNSCH PRN IV FLUSH 05/14/17 15:15 Papaverine HCl 60 mg/Nitroglycerin 100 mcg/Diltiazem HCl 100 mg/Sodium Chloride 100 ml @ 0 mls/hr CASER IRRIGATION 05/14/17 16:00 05/21/17 15:59 Cefazolin Sodium 500 mg/Sodium Chloride 505 ml @ 0 mls/hr CASER IRRIGATION 05/14/17 15:15 05/21/17 15:14 Cefazolin Sodium/ Dextrose 50 ml @ 150 mls/hr CASER IV 05/14/17 15:15 05/21/17 15:14 (Hibiclens 4% Top Soln) 1 applic CASER TOPICAL 05/14/17 15:15 05/21/17 15:14 Insulin Human Regular 100 units/ Sodium Chloride 100 ml @ 3 mls/hr TITRATE PRN IV 05/14/17 16:00 05/21/17 15:59 (D50w (Vial) Inj) 50 ml UNSCH PRN IV PUSH 05/14/17 15:15 (Torrie Han) Physical Exam General Appearance: No Acute Distress, Comfortable (Torrie Han) Neck Neck Exam: Neck Supple, Trachea Midline (Torrie Han) Pulmonary Resp Exam: Clear Bilaterally, Breath Sounds Equal (Torrie Han) Cardiology CV Exam: Regular, Normal Sinus Rhythm (Torrie Han) Gastrointestinal/Abdomen GI Exam: Soft, Non-Tender (Torrie Han) Integumentary Skin Exam: Clear, Warm (Torrie Han) Extremeties Extremities Exam: Moderate Edema (1+ pitting BLE up to knees) (Torrie Han) Neurologic Neuro Exam: Alert, Awake (Torrie Han) Psychiatric Psych Exam: Appropriate Responses (Torrie Han) Assessment/Plan Problem List: (1) CKD (chronic kidney disease) stage 3, GFR 30-59 ml/min ICD Codes: N18.3 - Chronic kidney disease, stage 3 (moderate) Status: Chronic Plan: Related primarily to nephrosclerosis of hypertension and aging with probable component related to multiple myeloma with associated heavy proteinuria previously. Patient's renal indices have deteriorated somewhat above his usual baseline possibly related to his cardiac decompensation. Renal functions stable today. Will continue to follow as he received contrast today, but does appear that only a small amount was used--->20cc As discussed with the patient's , depending on how his renal functions are in the next few days will help us determine what his risk for further renal injury may be in regards to further cardiac intervention. For now, we will continue to optimize his volume status and monitor. Continue on IV Lasix 40mg q12h. Given KCl today for hypokalemia. Supplement as needed Will hold his Amlodipine for the present given his relatively low BP in house. Medications should be adjusted for the patient's estimated GFR if clinically indicated. Avoid agents with significant potential for nephrotoxicity possible including NSAIDs for analgesia, iodine contrast agents. Gadolinium is contraindicated if the GFR is below 30. (2) Non-STEMI (non-ST elevated myocardial infarction) ICD Codes: I21.4 - Non-ST elevation (NSTEMI) myocardial infarction Status: Acute Plan: s/p cardiac cath 05/14/17 Reported: Left main is free of significant disease. Left anterior descending artery has a proximal 20-30% stenosis and a 99% stenosis of the LAD. The circumflex is subtotally occluded and goes on to give a large marginal. The right coronary artery is 90% occluded. Left ventriculogram performed in the standard ÁLVAREZ projection reveals an ejection fraction of 35-40%. (3) Anemia ICD Codes: D64.9 - Anemia, unspecified Status: Chronic Plan: Likely related to a combination of his chronic kidney disease and multiple myeloma. Fe stores low. Consider Venofer infusion (4) New onset of congestive heart failure ICD Codes: I50.9 - Heart failure, unspecified Status: Acute Plan: Continue diuretic therapy with monitoring of volume status and renal indices. Improving, but still with significant edema EF as per cardiac cath-->35-40% (5) Multiple myeloma, without mention of having achieved remission ICD Codes: C90.00 - Multiple myeloma not having achieved remission Status: Chronic (Torrie Hna) Plan The exam, history, and the medical decision-making described in the above note were completed with the assistance of the PA-C. I reviewed and agree with the findings presented. (Deedee Lizama MD) Torrie Han May 14, 2017 17:29 Deedee Lizama MD May 15, 2017 15:03
[2017-05-14] MEDS ORDERED: TEMAZEPAM 15 MG CAP PO PRN (17:30)
--- NOTE | 2017-05-14 17:33 | RADRPT ---
EXAM DATE/TIME: 05/14/2017 15:20 [facility] COMPARISON: No previous studies available for comparison. INDICATIONS : Preop cardiac surgery. MEDICAL HISTORY : Myocardial infarction. Hypercholesterolemia. Hypertension. Hearing loss. Renal failure. Arthritis. Pr ostate cancer. Chemotherapy. Radiation therapy. Measles. SURGICAL HISTORY : Abdominal aortic aneurysm repair.Prostatectomy. Cardiac surgery. ENCOUNTER: Initial ACUITY: 1 day PAIN SCORE: 0/10 LOCATION: Bilateral legs. TECHNIQUE: Venous ultrasound of the left and right leg was performed from the inguinal ligament to the proximal calf. Real-time, color Doppler and spectral tracing, compression and augmentation techniques were us ed. FINDINGS: RIGHT LEG: There is normal compressibility of the deep venous system from the inguinal region to the proximal ca lf. No echogenic clot is seen in the lumen of the common femoral, femoral, popliteal, and posterior tibial veins. There is a normal response of the venous system to proximal and distal augmentation an d respiration. LEFT LEG: There is normal compressibility of the deep venous system from the inguinal region to the proximal ca lf. No echogenic clot is seen in the lumen of the common femoral, femoral, popliteal, and posterior tibial veins. There is a normal response of the venous system to proximal and distal augmentation an d respiration. CONCLUSION: 1. No sonographic evidence for lower extremity DVT. Raymond Islas MD on May 14, 2017 at 17:30 Board Certified Radiologist. This report was verified electronically.
--- NOTE | 2017-05-14 17:42 | RADRPT ---
EXAM DATE/TIME: 05/14/2017 15:27 [facility] COMPARISON: No previous studies available for comparison. INDICATIONS : Preop cardiac surgery. MEDICAL HISTORY : Myocardial infarction. Hypercholesterolemia. Hypertension. Hearing loss. Renal failure. Arthritis. Pr ostate cancer. Chemotherapy. Radiation therapy. Measles. SURGICAL HISTORY : Abdominal aortic aneurysm repair. Prostatectomy. Cardiac surgery. ENCOUNTER: Initial ACUITY: 1 day PAIN SCORE: 0/10 LOCATION: Bilateral legs. GREATER SAPHENOUS VEIN THIGH: PROXIMAL: Right 5 mm Left 4 mm MID: Right 4 mm Left 2 mm DISTAL: Right 3 mm Left 2 mm CALF: PROXIMAL: Right 1 mm Left Non-visualized MID: Right 1 mm Left Non-visualized DISTAL: Right 2 mm Left Non-visualized FINDINGS: The venous system of the lower extremities are patent by color Doppler imaging. Measurements of the leg veins (in mm) are listed above. CONCLUSION: 1. Lower extremity venous mapping, as above. Raymond Islas MD on May 14, 2017 at 17:40 Board Certified Radiologist. This report was verified electronically.
--- NOTE | 2017-05-14 17:52 | RADRPT ---
EXAM DATE/TIME: 05/14/2017 15:42 [facility] COMPARISON: No previous studies available for comparison. INDICATIONS : Preop cardiac surgery. MEDICAL HISTORY : Hypercholesterolemia. Hypertension. Myocardial infarction. Hearing loss. Renal failure. Arthritis. Pr ostate cancer. Chemotherapy. Radiation therapy. Measles. SURGICAL HISTORY : Abdominal aortic aneurysm repair. Prostatectomy. Cardiac surgery. ENCOUNTER: Initial ACUITY: 1 day PAIN SCORE: 0/10 LOCATION: Bilateral neck PEAK SYSTOLIC VELOCITIES (cm/sec): ICA/CCA RATIO: Right: 1.0 Left: 1.4 ICA: Right: 93 Left: 119 CCA: Right: 91 Left: 85 ECA: Right: 92 Left: 58 VERTEBRAL: Right: 59 antegrade Left: 55 antegrade Elevated flow velocities and ICA/CCA ratios have been found to correlate with increased degrees of vessel stenosis, calculated as percentage of diameter relative to a normal segment of distal ICA/CCA FINDINGS: RIGHT CAROTID: No significant stenosis is visualized. The waveforms are within normal limits. LEFT CAROTID: No significant stenosis is visualized. The waveforms are within normal limits. VERTEBRAL ARTERIES: Antegrade flow is seen in both vertebral arteries. MISCELLANEOUS: None. CONCLUSION: 1. No significant carotid flow limiting stenosis. 2. Antegrade vertebral artery flow bilaterally. Raymond Islas MD on May 14, 2017 at 17:48 Board Certified Radiologist. This report was verified electronically.
[2017-05-14] MEDS: ATORVASTATIN 40 MG TAB PO SCH (21:15)
[2017-05-15] VITALS (28 sets, daily range): BP systolic 96–138; BP diastolic 62–70; PULSE 43–76; RESP 18–20; TEMP 98–98.7; O2SAT 93–100
[2017-05-15 05:58] LABS: HEMATOCRIT 26.1 % (39.0-51.0); HEMOGLOBIN 8.8 GM/DL (13.0-17.0); MEAN CELL VOLUME 88.5 FL (80.0-100.0); MEAN CORPUSCULAR HGB CONC 33.9 % (32.0-36.0); MEAN PLATELET VOLUME 8.7 FL (7.0-11.0); PLATELET COUNT 250 TH/MM3 (150-450); RED BLOOD COUNT 2.95 MIL/MM3 (4.50-5.90); RED CELL DISTRIBUTION WIDTH 14.9 % (11.6-17.2); WHITE BLOOD COUNT 3.9 TH/MM3 (4.0-11.0)
[2017-05-15 06:25] LABS: ALBUMIN 2.4 GM/DL (3.4-5.0); ALT (GPT) 27 U/L (12-78); AST (GOT) 25 U/L (15-37); BICARBONATE 24.5 MEQ/L (21.0-32.0); BLOOD UREA NITROGEN 30 MG/DL (7-18); CALCIUM 8.3 MG/DL (8.5-10.1); CHLORIDE 112 MEQ/L (98-107); CREATININE 2.01 MG/DL (0.60-1.30); GLOMERULAR FILTRATION RATE 32 ML/MIN (>89); GLUCOSE,RANDOM 95 MG/DL (74-106); SODIUM (NA) 146 MEQ/L (136-145)
[2017-05-15 06:28] LABS: ALKALINE PHOSPHATASE 56 U/L (45-117); TOTAL BILIRUBIN ADULT 0.4 MG/DL (0.2-1.0); TOTAL PROTEIN 6.8 GM/DL (6.4-8.2)
--- NOTE | 2017-05-15 07:41 | MB ---
cc: SHAWNA VIVAS DATE OF CONSULTATION: 05/14/2017 1938 HISTORY OF PRESENT ILLNESS A 77-year-old patient of Dr. Brandon Cuellar, Dr. Ankiet Clifton, Dr. Guzman in hematology [facility] and also prop maker, Dr. Marcelo. The patient with history of coronary artery disease, recently had been complaining of some lower extremity edema for about 4 weeks. He went on a cruise 2 weeks ago and had some more noticeable lower extremity edema. He states that he was monitoring his sodium intake without much improvement. He just returned from his cruise. He went to see Dr. Lizama his manager fast food who sent him over to the emergency department for further evaluation. He has also noticed some increased shortness of breath with minimal exertion and has been using his inhaler more. He denied having any chest pain, no orthopnea, no paroxysmal nocturnal dyspnea. In the emergency department his troponins were elevated at 9.72, his BNP was 1708, his creatinine was 2.07 and his baseline is 1.7 to 1.9. He was started on a heparin drip and was aggressively diuresed. He underwent cardiac cath today which showed ejection fraction of 35-40%, proximal LAD had a 20% stenosis, the mid distal LAD 90% stenosis, circumflex 99% stenosis, the ramus is 95% stenosed. He also underwent a 2-D echocardiogram which showed an EF of 45%, mild aortic regurgitation, moderate mitral valve regurgitation, the left atrium was mild to moderately dilated, there was also mild concentric left ventricular hypertrophy. We were consulted to evaluate for coronary artery bypass grafting. PAST MEDICAL HISTORY The patient's past medical history is significant for: 1. Coronary artery disease. 2. Hyperlipidemia. 3. COPD on nebulizers at home. 4. Chronic kidney disease, stage III with baseline of 1.7. 5. He was incidentally found to have multiple myeloma when undergoing evaluation for neuropathy and has been on oral immunosuppressant Revlimid and is followed by Dr. Guzman at [facility] in [place]. OTHER PAST MEDICAL HISTORY 1. Obstructive sleep apnea on a C-PAP machine. 2. Hypertension. 3. Mild aortic stenosis. 4. Moderate mitral valve regurgitation. 5. Iron deficiency anemia. 6. History of prostate cancer. PAST SURGICAL HISTORY 1. Cardiac cath in 1991 where he had two atherectomies at that time. He was preceded by a myocardial infarction. 2. He has had a AAA repair with endograft repair, Welch device in April of [address] [place] [address] Zavala and Dr. Levin. 3. He had prostatectomy with radiation and Lupron therapy. ALLERGIES No known allergies. MEDICATIONS Home meds include: 1. Multivitamin. 2. Ventolin inhaler. 3. Lyrica. 4. Pravachol. 5. Bumex 1 mg daily. 6. Potassium 10 mEq p.o. every other day. 7. Omeprazole. 8. Aspirin. 9. Revlimid. 10. Coreg. 11. Amlodipine. FAMILY HISTORY Mother from CHF, valve replacement. Father had lung cancer and coronary disease. SOCIAL HISTORY The patient is . Previous smoker, quit in 1990. No alcohol. and lives with his . REVIEW OF SYSTEMS GENERAL: No night sweats, fever, heat and cold intolerance. SKIN: No psoriasis, itching or hives. HEENT: No blurred vision, hearing loss. He does wear glasses. RESPIRATORY: Positive for recent shortness of breath. No cough. CARDIOVASCULAR: No chest pain. No paroxysmal nocturnal dyspnea. No orthopnea or palpitations. Positive for lower extremity edema. GASTROINTESTINAL: No diarrhea, vomiting. GENITOURINARY: No burning, frequency, urgency. 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 ENDOCRINOLOGY: No history of diabetes and/or hypothyroidism. PHYSICAL EXAMINATION VITAL SIGNS: Blood pressure 117/60, heart rate 64, temperature max 98.5. GENERAL: Patient is awake, alert, no acute distress. HEENT: Head is normocephalic, atraumatic. Pupils equal and reactive. Oral mucosa pink, moist. NECK: Supple. No JVD. HEART: Heart sounds S1-S2, regular rate and rhythm. No audible rubs, murmurs. He does have a slight systolic murmur over the aortic valve. LUNGS: Diminished in the bases, few basilar crackles. ABDOMEN: Soft, nontender. No masses or organomegaly. EXTREMITIES: Reveal trace edema and good distal pulses. NEUROLOGIC: Alert and oriented x 3. No focal deficits. LABORATORY FINDINGS Lab work shows hemoglobin 8.5, hematocrit 25, low iron levels. White cell count of 4.8, platelet count 214, troponin 9.75, at the highest, BNP is 1700, sodium 144, potassium 3.2, BUN 29 with a creatinine 2.07. IMAGING STUDIES Chest x-ray showed some patchy opacity in both lungs, no consolidation. IMPRESSION/PLAN This is a 77-year-old male with triple-vessel disease, will require HEAD to the LAD, possible saphenous vein graft to the marginal branch, also distal right coronary artery, ejection fraction of 35-40%. STS data will be documented and placed in the electronic record. The cardiac films will be reviewed by Dr. Shawna Vivas. Planning for surgery possibly on Thursday the to allow his kidneys to recover from the cardiac dye. In the meantime will continue heparin drip, beta-el, statin protocol and also baby aspirin. Further planning per Dr. Shawna Vivas. Dictated by: CHARMAINE Machuca MD CHON Cannon/LAKIA /3:06 PM /7:19 AM
[2017-05-15] MEDS: FUROSEMIDE 40 MG/4 ML VIAL IV PUSH SCH (09:14)
[2017-05-15] MEDS: CARVEDILOL 3.125 MG TAB PO SCH ×2 (09:14→20:35)
[2017-05-15] MEDS: ASPIRIN 81 MG CHEW TAB CHEW SCH (09:15)
[2017-05-15] MEDS: ACETYLCYSTEINE 20% ORAL SOLN 4 ML VIAL PO SCH ×2 (09:15→20:35)
[2017-05-15] MEDS: PANTOPRAZOLE SOD 20 MG DELAYED RELEASE TAB PO SCH (09:15)
[2017-05-15] MEDS: PREGABALIN 75 MG CAP PO SCH ×2 (09:15→20:35)
[2017-05-15] MEDS: SODIUM CHLORIDE 0.9% FLUSH 10 ML FLUSH IV FLUSH SCH ×3 (09:15→20:42)
--- NOTE | 2017-05-15 09:21 | HHI.PR ---
Subjective Remarks Follow up for NSTEMI, CHF. Patient is doing well. No acute concerns. Objective Vitals Vital Signs Date Time Temp Pulse Resp B/P (MAP) Pulse Ox O2 Delivery O2 Flow Rate FiO2 05/15/17 09:12 98.0 58 18 115/67 (83) 97 05/15/17 06:15 52 05/15/17 05:28 48 05/15/17 04:41 57 05/15/17 04:40 98.0 51 110/62 (78) 98 05/15/17 03:15 56 05/15/17 02:26 47 05/15/17 01:00 62 05/15/17 00:06 98.7 43 124/63 (83) 98 05/15/17 00:00 52 05/14/17 23:00 65 05/14/17 22:00 60 05/14/17 21:00 68 05/14/17 20:00 98.6 61 123/69 (87) 94 05/14/17 20:00 64 05/14/17 20:00 98.6 61 123/69 (87) 94 05/14/17 19:00 63 05/14/17 18:10 120/66 (84) 05/14/17 18:00 63 05/14/17 17:10 110/55 (73) 05/14/17 17:00 54 05/14/17 16:00 97.2 75 18 120/66 (84) 98 05/14/17 16:00 61 05/14/17 16:00 97.2 75 16 120/66 (84) 98 05/14/17 15:00 52 116/66 (83) 05/14/17 14:32 56 120/66 (84) 05/14/17 14:00 56 05/14/17 14:00 56 108/66 (80) 05/14/17 11:00 51 05/14/17 10:00 52 I/O 05/14/17 05/14/17 05/14/17 05/15/17 05/15/17 05/15/17 07:00 15:00 23:00 07:00 15:00 23:00 Intake Total 480 ml 240 ml Output Total 500 ml Balance -20 ml 240 ml Intake Oral 480 ml 240 ml Output Urine Total 500 ml # Voids 3 Result Diagram: 05/15/17 0438 05/15/17 0438 Imaging Last Impressions Lower Extremity Ultrasound 05/14/17 0000 Signed Impressions: Service Date/Time: May 15:27 - CONCLUSION: 1. Lower extremity venous mapping, as above. Raymond Islas MD Carotid Artery Ultrasound 05/14/17 0000 Signed Impressions: Service Date/Time: May 15:42 - CONCLUSION: 1. No significant carotid flow limiting stenosis. 2. Antegrade vertebral artery flow bilaterally. Raymond Islas MD Chest X-Ray 05/12/17 1659 Signed Impressions: Service Date/Time: Friday, May 12, 2017 17:08 - CONCLUSION: 1. Small bilateral pleural effusions. 2. Mild patchy opacity at both lung bases with no focal consolidation. 3. No perihilar edema. Sandor Wolf MD Objective Remarks GENERAL: Alert, Oriented x 3, NAD. SKIN: Warm and dry. HEAD: Normocephalic. EYES: No scleral icterus. No injection or drainage. NECK: Supple, trachea midline. No JVD or lymphadenopathy. CARDIOVASCULAR: Regular rate and rhythm without murmurs, gallops, or rubs. RESPIRATORY: Moderate air entry, bibasilar crackles. GASTROINTESTINAL: Abdomen soft, non-tender, nondistended. MUSCULOSKELETAL: No cyanosis. 2+ lower ext edema. BACK: Nontender without obvious deformity. No CVA tenderness. Procedures Echo 05/13/2017 The left ventricular systolic function is mildly reduced with an estimated ejection fraction of 45%. Normal left ventricular size. Moderate concentric left ventricular hypertrophy. The left atrial size is [id number] dilated. Moderate mitral valve regurgitation. Moderate thickening of the aortic valve leaflets. Mild aortic valve regurgitation. There is trace tricuspid valve regurgitation. The estimated pulmonary arterial pressure is 40 mmHg. Trivial pulmonary valve regurgitation. A/P Problem List: (1) Non-STEMI (non-ST elevated myocardial infarction) ICD Code: I21.4 - Non-ST elevation (NSTEMI) myocardial infarction Status: Acute (2) New onset of congestive heart failure ICD Code: I50.9 - Heart failure, unspecified Status: Acute (3) Anemia ICD Code: D64.9 - Anemia, unspecified Status: Chronic Assessment and Plan Mr. Nicholas is a pleasant 77 year old male who presented to the ED due to increased shortness of breath, leg swelling. He was found to have NSTEMI as well. - Non-STEMI - Troponins are 9.28, 9.68, 6.78. - Continue heparin drip, aspirin 81mg Qday, Carvedilol 3.125mg BID. - Nitroglycerine PRN. - Continue Lipitor 40mg Qday. - s/p Cardiac cath. patient has multivessel coronary artery disease. Cardiothoracic surgery is following. Possible CABG on Thursday05/18/2017. - New onset Congestive heart failure, likely systolic. - Echo shows EF 45%. - Continue beta el, aspirin, Lasix. Will reduce Lasix to 20mg BID. - Consider Lisinopril since he does have reduced EF. - CKD stage III - Mild hypernatremia Na 146. - Creatinine around 2.0. - Will reduce Lasix from 40 to 20mg IV BID. - Will check BMP in the AM. - Hypertension - continue Amlodipine 5mg Qday. Full code. Heparin drip. Ortiz Mccloud DO May 15, 2017 9:21 am
--- NOTE | 2017-05-15 12:27 | PD.CAR.PN ---
CVT Progress Note Subjective/Hospital Course: 77-year-old patient of Dr. Brandon Cuellar, Dr. Aniket Clifton, Dr. Guzman in hematology [facility] and also drafter (cad) electrical, Dr. Marcelo. History of coronary artery disease, recently had been complaining of some lower extremity edema for about 4 weeks He went on a cruise 2 weeks ago and had some more noticeable lower extremity edema. He states that he was monitoring his sodium intake without much improvement. He just returned from his cruise. He went to see Dr. Lizama his foot and ankle surgeon who sent him over to the emergency department for further evaluation. He has also noticed some increased shortness of breath with minimal exertion and has been using his inhaler more. He denied having any chest pain, no orthopnea, no paroxysmal nocturnal dyspnea. In the emergency department his troponins were elevated at 9.72, his BNP was 1708, his creatinine was 2.07 and his baseline is 1.7 to 1.9. He was started on a heparin drip and was aggressively diuresed. He underwent cardiac cath today which showed ejection fraction of 35-40%, proximal LAD had a 20% stenosis, the mid distal LAD 90% stenosis, circumflex 99% stenosis, the ramus is 95% stenosed. He also underwent a 2-D echocardiogram which showed an EF of 45%, mild aortic regurgitation, moderate mitral valve regurgitation, the left atrium was mild to moderately dilated, there was also mild concentric left ventricular hypertrophy. We were consulted to evaluate for coronary artery bypass grafting. PAST MEDICAL HISTORY: Coronary artery disease, Hyperlipidemia, COPD on nebulizers at home, Chronic kidney disease, stage III with baseline of 1.7, He was incidentally found to have multiple myeloma when undergoing evaluation for neuropathy and has been on oral immunosuppressant Revlimid and is followed by Dr. Guzman at [facility] in [place]. OTHER PAST MEDICAL HISTORY: Obstructive sleep apnea on a C-PAP machine, Hypertension, Mild aortic stenosis, Moderate mitral valve regurgitation, Iron deficiency anemia, History of prostate cancer. PAST SURGICAL HISTORY: Cardiac cath in 1991 where he had two arthrectomies at that time. He was preceded by a myocardial infarction, He has had a AAA repair with endograft repair, Ancram device in April of 2009, prostatectomy with radiation and Lupron therapy. 05/15 pt remains pain free, still feels a little SOB with exertion , mild productive cough , will recheck CXR tentatively scheduled for surgery on Thursday continue BB, ASA statin on Heparin gtt Objective: GENERAL: SKIN: Warm and dry. HEAD: Normocephalic. EYES: No scleral icterus. No injection or drainage. NECK: Supple, trachea midline. No JVD or lymphadenopathy. CARDIOVASCULAR: Regular rate and rhythm without murmurs, gallops, or rubs. mild lower ext edema RESPIRATORY: Breath sounds equal bilaterally, diminished in bases, few basilar crackles No accessory muscle use. GASTROINTESTINAL: Abdomen soft, non-tender, nondistended. MUSCULOSKELETAL: No cyanosis, or edema. BACK: Nontender without obvious deformity. No CVA tenderness. Vital Signs Date Time Temp Pulse Resp B/P (MAP) Pulse Ox O2 Delivery O2 Flow Rate FiO2 05/15/17 09:12 98.0 58 18 115/67 (83) 97 05/15/17 06:15 52 05/15/17 05:28 48 05/15/17 04:41 57 05/15/17 04:40 98.0 51 110/62 (78) 98 05/15/17 03:15 56 05/15/17 02:26 47 05/15/17 01:00 62 05/15/17 00:06 98.7 43 124/63 (83) 98 05/15/17 00:00 52 05/14/17 23:00 65 05/14/17 22:00 60 05/14/17 21:00 68 05/14/17 20:00 98.6 61 123/69 (87) 94 05/14/17 20:00 64 05/14/17 20:00 98.6 61 123/69 (87) 94 05/14/17 19:00 63 05/14/17 18:10 120/66 (84) 05/14/17 18:00 63 05/14/17 17:10 110/55 (73) 05/14/17 17:00 54 05/14/17 16:00 97.2 75 18 120/66 (84) 98 05/14/17 16:00 61 05/14/17 16:00 97.2 75 16 120/66 (84) 98 05/14/17 15:00 52 116/66 (83) 05/14/17 14:32 56 120/66 (84) 05/14/17 14:00 56 05/14/17 14:00 56 108/66 (80) Labs: Laboratory Tests Test 05/15/17 04:38 White Blood Count 3.9 TH/MM3 (4.0-11.0) Red Blood Count 2.95 MIL/MM3 (4.50-5.90) Hemoglobin 8.8 GM/DL (13.0-17.0) Hematocrit 26.1 % (39.0-51.0) Mean Corpuscular Volume 88.5 FL (80.0-100.0) Mean Corpuscular Hemoglobin 30.0 PG (27.0-34.0) Mean Corpuscular Hemoglobin Concent 33.9 % (32.0-36.0) Red Cell Distribution Width 14.9 % (11.6-17.2) Platelet Count 250 TH/MM3 (150-450) Mean Platelet Volume 8.7 FL (7.0-11.0) Blood Urea Nitrogen 30 MG/DL (7-18) Creatinine 2.01 MG/DL (0.60-1.30) Random Glucose 95 MG/DL (74-106) Total Protein 6.8 GM/DL (6.4-8.2) Albumin 2.4 GM/DL (3.4-5.0) Calcium Level 8.3 MG/DL (8.5-10.1) Alkaline Phosphatase 56 U/L (45-117) Aspartate Amino Transf (AST/SGOT) 25 U/L (15-37) Alanine Aminotransferase (ALT/SGPT) 27 U/L (12-78) Total Bilirubin 0.4 MG/DL (0.2-1.0) Sodium Level 146 MEQ/L (136-145) Potassium Level 3.7 MEQ/L (3.5-5.1) Chloride Level 112 MEQ/L (98-107) Carbon Dioxide Level 24.5 MEQ/L (21.0-32.0) Anion Gap 10 MEQ/L (5-15) Estimat Glomerular Filtration Rate 32 ML/MIN (>89) Result Diagram: 05/15/178 05/15/17437 Telemetry: NSR (1) Non-STEMI (non-ST elevated myocardial infarction) Plan: for surgery on Thursday (2) New onset of congestive heart failure Plan: on (3) Anemia (4) CKD (chronic kidney disease) stage 3, GFR 30-59 ml/min Plan: creatinine 2.0 (5) Multiple myeloma, without mention of having achieved remission Judith Gutierrez May 15, 2017 12:26
--- NOTE | 2017-05-15 14:59 | HHI.NPPN ---
Subjective History of Present Illness This patient is a 77-year-old male with a history of known chronic kidney disease stage III with a baseline creatinine level of approximately 1.7-1.9. Patient's initial chronic kidney disease was related to nephrosclerosis of hypertension but the patient subsequently developed marked proteinuria with development of a monoclonal gammopathy and was subsequently diagnosis having superimposed myeloma which is being managed by the hematology department at the [facility] in [place]. Patient has been on Revlimid. More recently patient's proteinuria has been improving. Patient subsequently presented to my office however yesterday complaining of increasing lower extremity edema with dyspnea. Renal labs were pending at the time of presentation to the office yesterday. There was a history of a echocardiogram at the [facility] indicating preserved ejection fraction. Because of the severity of the patient's fluid retention with respiratory insufficiency he was advised to be admitted to the hospital for further evaluation and apparently had evidence of acute myocardial injury with elevated troponin levels. Patient denied any chest pain at time of presentation. He does have a history however of aphthous chronic heart disease as well as an abdominal aortic aneurysm. Also previous history of AAA repair. Interval History Patient indicating that he is feeling better with less shortness of breath and his edema is gone. Review of Systems General Constitutional: Fatigue Cardiovascular Cardiac: Edema Objective Data Data Vital Signs Date Time Temp Pulse Resp B/P (MAP) Pulse Ox O2 Delivery O2 Flow Rate FiO2 05/15/17 14:00 56 05/15/17 13:00 56 05/15/17 12:00 98.3 46 20 96/66 (76) 100 05/15/17 12:00 48 05/15/17 11:00 54 05/15/17 10:00 64 05/15/17 09:12 98.0 58 18 115/67 (83) 97 05/15/17 09:00 70 05/15/17 08:00 52 05/15/17 07:00 54 05/15/17 06:15 52 05/15/17 05:28 48 05/15/17 04:41 57 05/15/17 04:40 98.0 51 110/62 (78) 98 05/15/17 03:15 56 05/15/17 02:26 47 05/15/17 01:00 62 05/15/17 00:06 98.7 43 124/63 (83) 98 05/15/17 00:00 52 05/14/17 23:00 65 05/14/17 22:00 60 05/14/17 21:00 68 05/14/17 20:00 98.6 61 123/69 (87) 94 05/14/17 20:00 64 05/14/17 20:00 98.6 61 123/69 (87) 94 05/14/17 19:00 63 05/14/17 18:10 120/66 (84) 05/14/17 18:00 63 05/14/17 17:10 110/55 (73) 05/14/17 17:00 54 05/14/17 16:00 97.2 75 18 120/66 (84) 98 05/14/17 16:00 61 05/14/17 16:00 97.2 75 16 120/66 (84) 98 05/14/17 15:00 52 116/66 (83) -: 05/15/17 0438 05/15/17 0438 Physical Exam General Appearance: No Acute Distress, Comfortable Neck Neck Exam: Neck Supple, Trachea Midline Pulmonary Resp Exam: Clear Bilaterally, Breath Sounds Equal Cardiology CV Exam: Regular, Normal Sinus Rhythm Gastrointestinal/Abdomen GI Exam: Soft, Non-Tender Integumentary Skin Exam: Clear, Warm Extremeties Extremities Exam: No Edema Neurologic Neuro Exam: Alert, Awake Psychiatric Psych Exam: Appropriate Responses Assessment/Plan Discussed Condition With: Patient Problem List: (1) CKD (chronic kidney disease) stage 3, GFR 30-59 ml/min ICD Codes: N18.3 - Chronic kidney disease, stage 3 (moderate) Status: Chronic Plan: Related primarily to nephrosclerosis of hypertension and aging with probable component related to multiple myeloma with associated heavy proteinuria previously. Patient's renal indices are remaining relatively stable post cardiac catheterization. Continue to monitor renal indices over the weekend. Agree with reducing diuresis in view of developing hypernatremia and improved volume status. Medications should be adjusted for the patient's estimated GFR if clinically indicated. Avoid agents with significant potential for nephrotoxicity possible including NSAIDs for analgesia, iodine contrast agents. Gadolinium is contraindicated if the GFR is below 30. (2) Non-STEMI (non-ST elevated myocardial infarction) ICD Codes: I21.4 - Non-ST elevation (NSTEMI) myocardial infarction Status: Acute Plan: s/p cardiac cath 05/14/17 Reported: Left main is free of significant disease. Left anterior descending artery has a proximal 20-30% stenosis and a 99% stenosis of the LAD. The circumflex is subtotally occluded and goes on to give a large marginal. The right coronary artery is 90% occluded. Left ventriculogram performed in the standard ÁLVAREZ projection reveals an ejection fraction of 35-40%. Patient is scheduled to have a CABG this coming Thursday. Based on the patient's risk factors and current renal function I indicated to him his estimated risk for requiring dialysis post CABG is approximately 7.1% and he indicated to me that he accepts this risk and wishes to proceed with surgery and is clear from a renal point of view as such. (3) Anemia ICD Codes: D64.9 - Anemia, unspecified Status: Chronic Plan: Likely related to a combination of his chronic kidney disease and multiple myeloma. Parental iron as ordered. Would defer to hematology/oncology in regard to possible erythropoietin replacement therapy in view of his history of multiple myeloma. (4) New onset of congestive heart failure ICD Codes: I50.9 - Heart failure, unspecified Status: Acute Plan: Continue diuretic therapy with monitoring of volume status and renal indices. Improving, but still with significant edema EF as per cardiac cath-->35-40% (5) Multiple myeloma, without mention of having achieved remission ICD Codes: C90.00 - Multiple myeloma not having achieved remission Status: Chronic Deedee Lizama MD May 15, 2017 14:59
[2017-05-15 15:31] LABS: HEMOGLOBIN A1C 5.8 % (4.3-6.0)
[2017-05-15] MEDS: FUROSEMIDE 20 MG/2 ML VIAL IV PUSH SCH (17:53)
[2017-05-15] MEDS: ATORVASTATIN 40 MG TAB PO SCH (20:35)
[2017-05-16] VITALS (31 sets, daily range): BP systolic 109–128; BP diastolic 50–69; PULSE 48–74; RESP 16–18; TEMP 98.1–98.7; O2SAT 94–99
[2017-05-16] MEDS: SODIUM CHLORIDE 0.9% FLUSH 10 ML FLUSH IV FLUSH SCH ×2 (09:13→20:53)
[2017-05-16] MEDS: IRON SUCROSE INJ 100 MG in SODIUM CHLORIDE 0.9% INJ 100 ML IV SCH (09:14)
--- NOTE | 2017-05-16 09:14 | HHI.PR ---
Subjective Remarks This is a pleasant 77 y/o male with NSTEMI, CHF who came to ER wtih increased Shortness of breath and leg swelling, status post Cardiac Catheterization and found Multivessel coronary artery disease for probable CABG next Thursday05/18/17 Objective Vital Signs Date Time Temp Pulse Resp B/P (MAP) Pulse Ox O2 Delivery O2 Flow Rate FiO2 05/16/17 07:32 98.5 49 18 128/66 (86) 98 05/16/17 06:21 62 05/16/17 05:10 54 05/16/17 04:22 48 05/16/17 04:21 98.4 51 109/50 (69) 94 05/16/17 03:00 50 05/16/17 02:04 64 05/16/17 01:00 74 05/16/17 00:16 98.6 52 127/58 (81) 95 05/16/17 00:00 48 05/15/17 23:00 56 05/15/17 22:00 58 05/15/17 21:00 58 05/15/17 20:00 60 05/15/17 20:00 98.4 76 138/70 (92) 93 05/15/17 19:00 63 05/15/17 18:00 64 05/15/17 17:44 98.2 56 18 111/62 (78) 97 05/15/17 17:00 60 05/15/17 16:00 56 05/15/17 15:00 58 05/15/17 14:00 56 05/15/17 13:00 56 05/15/17 12:00 98.3 46 20 96/66 (76) 100 05/15/17 12:00 48 05/15/17 11:00 54 05/15/17 10:00 64 05/15/17 09:12 98.0 58 18 115/67 (83) 97 I/O 05/15/17 05/15/17 05/15/17 05/16/17 05/16/17 05/16/17 07:00 15:00 23:00 07:00 15:00 23:00 Intake Total 240 ml 720 ml 480 ml Output Total 800 ml 900 ml Balance 240 ml -80 ml -420 ml Intake Oral 240 ml 720 ml 480 ml Output Urine Total 800 ml 900 ml # Voids 3 # Bowel Movements 1 Result Diagram: 05/15/17 0438 05/15/17 0438 Imaging Last Impressions Lower Extremity Ultrasound 05/14/17 0000 Signed Impressions: Service Date/Time: May 15:27 - CONCLUSION: 1. Lower extremity venous mapping, as above. Raymond Islas MD Carotid Artery Ultrasound 05/14/17 0000 Signed Impressions: Service Date/Time: May 15:42 - CONCLUSION: 1. No significant carotid flow limiting stenosis. 2. Antegrade vertebral artery flow bilaterally. Raymond Islas MD Chest X-Ray 05/12/17 1659 Signed Impressions: Service Date/Time: Friday, May 12, 2017 17:08 - CONCLUSION: 1. Small bilateral pleural effusions. 2. Mild patchy opacity at both lung bases with no focal consolidation. 3. No perihilar edema. Sandor Wolf MD Procedures Cardiac Catheterization left main is free of significant disease, The circumflex is subtotally occluded, LAD 99% stenosis, RCA 90% occluded, EF 35-40%. Significant triple-vessel disease with renal insufficiency and significantly decreased myocardial function. Recommend bypass surgery with HEAD to the LAD, vein grafts to the marginal and distal right. Dr. Shawna Vivas from CV surgery will be consulted. The sheath will be pulled manually. Further recommendations to follow hospital course. Other Results Laboratory Tests Test 05/12/17 17:37 05/13/17 01:47 05/13/17 10:43 05/13/17 12:00 Prothrombin Time 11.9 SEC Prothromb Time International Ratio 1.2 RATIO Blood Urea Nitrogen 27 MG/DL Creatinine 2.03 MG/DL Random Glucose 102 MG/DL Total Protein 7.6 GM/DL Albumin 2.9 GM/DL Calcium Level 8.4 MG/DL Magnesium Level 2.1 MG/DL Alkaline Phosphatase 67 U/L Aspartate Amino Transf (AST/SGOT) 52 U/L Alanine Aminotransferase (ALT/SGPT) 30 U/L Total Bilirubin 0.5 MG/DL Sodium Level 140 MEQ/L Potassium Level 3.4 MEQ/L Chloride Level 107 MEQ/L Carbon Dioxide Level 20.9 MEQ/L Creatine Kinase MB 5.4 NG/ML Creatine Kinase MB % 1.4 % Neutrophils (%) (Auto) 39.2 % Lymphocytes (%) (Auto) 43.1 % Monocytes (%) (Auto) 12.7 % Eosinophils (%) (Auto) 3.9 % Basophils (%) (Auto) 1.1 % Neutrophils # (Auto) 1.9 TH/MM3 Lymphocytes # (Auto) 2.1 TH/MM3 Monocytes # (Auto) 0.6 TH/MM3 Eosinophils # (Auto) 0.2 TH/MM3 Basophils # (Auto) 0.1 TH/MM3 CBC Comment DIFF FINAL Differential Comment Total Creatine Kinase 276 U/L Troponin I 6.78 NG/ML Urine Color LIGHT-YELLOW Urine Turbidity CLEAR Urine pH 5.0 Urine Specific [place] 1.007 Urine Protein NEG mg/dL Urine Glucose (UA) NEG mg/dL Urine Ketones NEG mg/dL Urine Occult Blood SMALL Urine Nitrite NEG Urine Bilirubin NEG Urine Urobilinogen LESS THAN 2.0 MG/DL Urine Leukocyte Esterase NEG Urine RBC 1 /hpf Urine Squamous Epithelial Cells <1 /hpf Urine Hyaline Casts 1 /lpf Urine Mucus FEW /lpf Urine Random Creatinine 29 MG/DL Urine Random Total Protein 11 MG/DL Urine Protein/Creatinine Ratio 0.38 Test 05/14/17 06:11 05/14/17 12:00 05/15/17 04:38 05/15/17 18:00 Activated Partial Thromboplast Time 41.3 SEC Iron Level 23 MCG/DL Total Iron Binding Capacity 197 MCG/DL Percent Iron Saturation 11.7 % Ferritin 248 NG/ML B-Type Natriuretic Peptide 1873 PG/ML Urine Total Volume 24 Hours 2650 ML Urine Total Protein 24 Hour 485 MG/24HR White Blood Count 3.9 TH/MM3 Red Blood Count 2.95 MIL/MM3 Hemoglobin 8.8 GM/DL Hematocrit 26.1 % Mean Corpuscular Volume 88.5 FL Mean Corpuscular Hemoglobin 30.0 PG Mean Corpuscular Hemoglobin Concent 33.9 % Red Cell Distribution Width 14.9 % Platelet Count 250 TH/MM3 Mean Platelet Volume 8.7 FL Blood Urea Nitrogen 30 MG/DL Creatinine 2.01 MG/DL Random Glucose 95 MG/DL Total Protein 6.8 GM/DL Albumin 2.4 GM/DL Calcium Level 8.3 MG/DL Alkaline Phosphatase 56 U/L Aspartate Amino Transf (AST/SGOT) 25 U/L Alanine Aminotransferase (ALT/SGPT) 27 U/L Total Bilirubin 0.4 MG/DL Sodium Level 146 MEQ/L Potassium Level 3.7 MEQ/L Chloride Level 112 MEQ/L Carbon Dioxide Level 24.5 MEQ/L Anion Gap 10 MEQ/L Estimat Glomerular Filtration Rate 32 ML/MIN Hemoglobin A1c 5.8 % Nasal Screen MRSA (PCR) MRSA NOT DETECTED Objective Remarks GENERAL: Alert, Oriented x 3, NAD. SKIN: Warm and dry. HEAD: Normocephalic. EYES: No scleral icterus. No injection or drainage. NECK: Supple, trachea midline. No JVD or lymphadenopathy. CARDIOVASCULAR: Regular rate and rhythm without murmurs, gallops, or rubs. RESPIRATORY: Moderate air entry, bibasilar crackles. GASTROINTESTINAL: Abdomen soft, non-tender, nondistended. MUSCULOSKELETAL: No cyanosis. 2+ lower ext edema. BACK: Nontender without obvious deformity. No CVA tenderness. Medications and IVs Current Medications Medications (Trade) Dose Ordered Sig/Elio Route Start Time Stop Time Status Last Admin (Nitrostat Sl) 0.4 mg Q5M PRN SL 05/12/17 19:30 Heparin Sodium/ Dextrose 250 ml @ 10 mls/hr TITRATE PRN IV 05/12/17 19:30 05/13/17 18:38 (Narcan Inj) 0.4 mg UNSCH PRN IV PUSH 05/12/17 20:30 (Norvasc) 5 mg DAILY PO 05/13/17 09:00 Future Hold 05/14/17 08:11 (Aspirin Chew) 81 mg DAILY CHEW 05/13/17 09:00 05/15/17 09:15 (Coreg) 3.125 mg BID PO 05/13/17 09:00 05/15/17 20:35 (KCl) 10 meq EVERY OTHER DAY PO 05/14/17 09:00 05/14/17 08:10 (Lyrica) 75 mg BID PO 05/13/17 09:00 05/15/17 20:35 Patient Own Medication PT OWN MED: Lenalidomide (Revlim... 3 weeks on 1 week of PO 05/12/17 23:00 Future Hold (Protonix) 20 mg DAILY PO 05/13/17 09:00 05/15/17 09:15 (Duoneb Neb) 1 ampule Q4HR NEB PRN NEB 05/12/17 23:00 (Mucomyst 20% Liq) 6 ml BID PO 05/13/17 12:30 05/15/17 20:35 (Lipitor) 40 mg HS PO 05/13/17 21:00 05/15/17 20:35 (NS Flush) 2 ml BID IV FLUSH 05/14/17 21:00 05/15/17 20:42 (NS Flush) 2 ml UNSCH PRN IV FLUSH 05/14/17 15:15 Papaverine HCl 60 mg/Nitroglycerin 100 mcg/Diltiazem HCl 100 mg/Sodium Chloride 100 ml @ 0 mls/hr CARDIOTHORACIC ICU RN IRRIGATION 05/14/17 16:00 05/21/17 15:59 Cefazolin Sodium 500 mg/Sodium Chloride 505 ml @ 0 mls/hr CARDIOTHORACIC ICU RN IRRIGATION 05/14/17 15:15 05/21/17 15:14 Cefazolin Sodium/ Dextrose 50 ml @ 150 mls/hr CARDIOTHORACIC ICU RN IV 05/14/17 15:15 05/21/17 15:14 (Hibiclens 4% Top Soln) 1 applic CARDIOTHORACIC ICU RN TOPICAL 05/14/17 15:15 05/21/17 15:14 Insulin Human Regular 100 units/ Sodium Chloride 100 ml @ 3 mls/hr TITRATE PRN IV 05/14/17 16:00 05/21/17 15:59 (D50w (Vial) Inj) 50 ml UNSCH PRN IV PUSH 05/14/17 15:15 (Restoril) 15 mg HS PRN PO 05/14/17 17:30 (Lasix Inj) 20 mg BID@0900,1800 IV PUSH 05/15/17 18:00 05/15/17 17:53 Iron Sucrose 100 mg/Sodium Chloride 105 ml @ 105 mls/hr DAILY IV 05/16/17 09:00 05/18/17 09:59 A/P Assessment and Plan - Non-STEMI Echocardiogram 05/13/17 EF 45%, Moderate concentric left ventricular hypertrophy, Moderate mitral valve regurgitation. - Troponins are 9.28, 9.68, 6.78. to continue heparin Drip, Aspirin, Carvedilol, Nitroglycerine PRN, Statin, - s/p Cardiac cath. patient has multivessel coronary artery disease. Cardiothoracic surgery is following. Possible CABG on Thursday05/18/2017. - New onset Congestive heart failure, likely systolic. - Echo shows EF 45%. - Continue beta el, aspirin, Lasix. Will reduce Lasix to 20mg BID. - Consider Lisinopril since he does have reduced EF. - CKD stage III stable - Mild hypernatremia Na 146. - Creatinine around 2.0. - Will reduce Lasix from 40 to 20mg IV BID. - Will check BMP in the AM. - Hypertension - continue Amlodipine 5mg Qday. Controlled. Full code. Heparin drip. Discharge Planning will go to Cardiac intensive Care unit tomorrow. Nate Slater MD May 16, 2017 09:14
[2017-05-16] MEDS: POTASSIUM CHLORIDE 10 MEQ CAP PO SCH (09:17)
[2017-05-16] MEDS: PREGABALIN 75 MG CAP PO SCH ×2 (09:17→20:54)
[2017-05-16] MEDS: CARVEDILOL 3.125 MG TAB PO SCH ×2 (09:17→20:54)
[2017-05-16] MEDS: PANTOPRAZOLE SOD 20 MG DELAYED RELEASE TAB PO SCH (09:18)
[2017-05-16] MEDS: FUROSEMIDE 20 MG/2 ML VIAL IV PUSH SCH ×2 (09:18→17:37)
[2017-05-16] MEDS: ACETYLCYSTEINE 20% ORAL SOLN 4 ML VIAL PO SCH ×2 (09:19→20:55)
[2017-05-16] MEDS: ASPIRIN 81 MG CHEW TAB CHEW SCH (09:19)
[2017-05-16] MEDS: ATORVASTATIN 40 MG TAB PO SCH (20:54)
[2017-05-17] VITALS (23 sets, daily range): BP systolic 110–130; BP diastolic 56–64; PULSE 55–90; RESP 16–18; TEMP 98.1–99.3; O2SAT 94–98
[2017-05-17 05:27] LABS: HEMATOCRIT 29.2 % (39.0-51.0); HEMOGLOBIN 9.8 GM/DL (13.0-17.0); MEAN CELL VOLUME 87.8 FL (80.0-100.0); MEAN CORPUSCULAR HEMOGLOBIN 29.5 PG (27.0-34.0); MEAN CORPUSCULAR HGB CONC 33.6 % (32.0-36.0); MEAN PLATELET VOLUME 8.3 FL (7.0-11.0); PLATELET COUNT 300 TH/MM3 (150-450); RED BLOOD COUNT 3.33 MIL/MM3 (4.50-5.90); RED CELL DISTRIBUTION WIDTH 14.9 % (11.6-17.2); WHITE BLOOD COUNT 5.2 TH/MM3 (4.0-11.0)
[2017-05-17 05:30] LABS: BICARBONATE 22.6 MEQ/L (21.0-32.0); CALCIUM 8.3 MG/DL (8.5-10.1); CREATININE 1.63 MG/DL (0.60-1.30)
[2017-05-17 05:31] LABS: INTERNATIONAL NORMALIZED RATIO 1.2 RATIO; PROTHROMBIN TIME - PATIENT 12.6 SEC (9.8-11.6)
[2017-05-17] MEDS: PANTOPRAZOLE SOD 20 MG DELAYED RELEASE TAB PO SCH (09:35)
[2017-05-17] MEDS: PREGABALIN 75 MG CAP PO SCH ×2 (09:35→22:40)
[2017-05-17] MEDS: CARVEDILOL 3.125 MG TAB PO SCH ×2 (09:36→22:40)
[2017-05-17] MEDS: IRON SUCROSE INJ 100 MG in SODIUM CHLORIDE 0.9% INJ 100 ML IV SCH ×2 (09:36→12:34)
[2017-05-17] MEDS: ASPIRIN 81 MG CHEW TAB CHEW SCH (09:36)
[2017-05-17] MEDS: FUROSEMIDE 20 MG/2 ML VIAL IV PUSH SCH ×3 (09:46→18:12)
[2017-05-17] MEDS: ACETYLCYSTEINE 20% ORAL SOLN 4 ML VIAL PO SCH (09:46)
[2017-05-17] MEDS: SODIUM CHLORIDE 0.9% FLUSH 10 ML FLUSH IV FLUSH SCH ×2 (09:46→22:41)
--- NOTE | 2017-05-17 15:09 | HHI.PR ---
Subjective Remarks This is a pleasant 77 y/o male with NSTEMI, CHF who came to ER wtih increased Shortness of breath and leg swelling, status post Cardiac Catheterization and found Multivessel coronary artery disease for probable CABG next Thursday05/18/1705/17: Stable in his bedroom, seen in the presence of his , no nausea, vomit or diarrhea. ready for CABG tomorrow. Objective Vital Signs Date Time Temp Pulse Resp B/P (MAP) Pulse Ox O2 Delivery O2 Flow Rate FiO2 05/17/17 13:00 62 05/17/17 12:00 74 05/17/17 11:30 98.1 85 18 126/56 (79) 95 05/17/17 11:30 66 05/17/17 08:09 99.3 64 16 124/64 (84) 94 05/17/17 06:00 60 05/17/17 05:00 55 18 114/58 (76) 96 05/17/17 05:00 70 05/17/17 04:00 62 05/17/17 03:00 60 05/17/17 02:00 56 05/17/17 01:00 56 05/17/17 00:00 56 05/16/17 23:15 61 18 127/64 (85) 99 05/16/17 23:00 60 05/16/17 22:00 56 05/16/17 21:00 72 05/16/17 20:15 98.1 65 16 120/60 (80) 98 05/16/17 20:00 66 05/16/17 19:00 54 05/16/17 18:10 62 05/16/17 17:31 55 05/16/17 16:06 55 05/16/17 15:52 98.6 63 18 119/67 (84) 98 I/O 05/16/17 05/16/17 05/16/17 05/17/17 05/17/17 05/17/17 06:59 14:59 22:59 06:59 14:59 22:59 Intake Total 480 ml 830 ml 480 ml Output Total 900 ml 650 ml 650 ml Balance -420 ml 180 ml -170 ml Intake Oral 480 ml 830 ml 480 ml Output Urine Total 900 ml 650 ml 650 ml # Voids 3 # Bowel Movements 0 Result Diagram: 05/17/1741105/17/17411 Imaging Last Impressions Lower Extremity Ultrasound 05/14/17 0000 Signed Impressions: Service Date/Time: May 15:27 - CONCLUSION: 1. Lower extremity venous mapping, as above. Raymond Islas MD Carotid Artery Ultrasound 05/14/17 0000 Signed Impressions: Service Date/Time: May 15:42 - CONCLUSION: 1. No significant carotid flow limiting stenosis. 2. Antegrade vertebral artery flow bilaterally. Raymond Islas MD Chest X-Ray 05/12/17 1659 Signed Impressions: Service Date/Time: Friday, May 12, 2017 17:08 - CONCLUSION: 1. Small bilateral pleural effusions. 2. Mild patchy opacity at both lung bases with no focal consolidation. 3. No perihilar edema. Sandor Wolf MD Procedures Cardiac Catheterization left main is free of significant disease, The circumflex is subtotally occluded, LAD 99% stenosis, RCA 90% occluded, EF 35-40%. Significant triple-vessel disease with renal insufficiency and significantly decreased myocardial function. Recommend bypass surgery with HEAD to the LAD, vein grafts to the marginal and distal right. Dr. Shawna Vivas from CV surgery will be consulted. The sheath will be pulled manually. Further recommendations to follow hospital course. Other Results Laboratory Tests Test 05/12/17 17:37 05/13/17 01:47 05/13/17 10:43 05/13/17 12:00 Blood Urea Nitrogen 27 MG/DL Creatinine 2.03 MG/DL Random Glucose 102 MG/DL Total Protein 7.6 GM/DL Albumin 2.9 GM/DL Calcium Level 8.4 MG/DL Magnesium Level 2.1 MG/DL Alkaline Phosphatase 67 U/L Aspartate Amino Transf (AST/SGOT) 52 U/L Alanine Aminotransferase (ALT/SGPT) 30 U/L Total Bilirubin 0.5 MG/DL Sodium Level 140 MEQ/L Potassium Level 3.4 MEQ/L Chloride Level 107 MEQ/L Carbon Dioxide Level 20.9 MEQ/L Creatine Kinase MB 5.4 NG/ML Creatine Kinase MB % 1.4 % Neutrophils (%) (Auto) 39.2 % Lymphocytes (%) (Auto) 43.1 % Monocytes (%) (Auto) 12.7 % Eosinophils (%) (Auto) 3.9 % Basophils (%) (Auto) 1.1 % Neutrophils # (Auto) 1.9 TH/MM3 Lymphocytes # (Auto) 2.1 TH/MM3 Monocytes # (Auto) 0.6 TH/MM3 Eosinophils # (Auto) 0.2 TH/MM3 Basophils # (Auto) 0.1 TH/MM3 CBC Comment DIFF FINAL Differential Comment Total Creatine Kinase 276 U/L Troponin I 6.78 NG/ML Urine Color LIGHT-YELLOW Urine Turbidity CLEAR Urine pH 5.0 Urine Specific [place] 1.007 Urine Protein NEG mg/dL Urine Glucose (UA) NEG mg/dL Urine Ketones NEG mg/dL Urine Occult Blood SMALL Urine Nitrite NEG Urine Bilirubin NEG Urine Urobilinogen LESS THAN 2.0 MG/DL Urine Leukocyte Esterase NEG Urine RBC 1 /hpf Urine Squamous Epithelial Cells <1 /hpf Urine Hyaline Casts 1 /lpf Urine Mucus FEW /lpf Urine Random Creatinine 29 MG/DL Urine Random Total Protein 11 MG/DL Urine Protein/Creatinine Ratio 0.38 Test 05/14/17 06:11 05/14/17 12:00 05/15/17 04:38 05/15/17 18:00 Activated Partial Thromboplast Time 41.3 SEC Iron Level 23 MCG/DL Total Iron Binding Capacity 197 MCG/DL Percent Iron Saturation 11.7 % Ferritin 248 NG/ML B-Type Natriuretic Peptide 1873 PG/ML Urine Total Volume 24 Hours 2650 ML Urine Total Protein 24 Hour 485 MG/24HR Hemoglobin A1c 5.8 % Blood Urea Nitrogen 30 MG/DL Creatinine 2.01 MG/DL Random Glucose 95 MG/DL Total Protein 6.8 GM/DL Albumin 2.4 GM/DL Calcium Level 8.3 MG/DL Alkaline Phosphatase 56 U/L Aspartate Amino Transf (AST/SGOT) 25 U/L Alanine Aminotransferase (ALT/SGPT) 27 U/L Total Bilirubin 0.4 MG/DL Sodium Level 146 MEQ/L Potassium Level 3.7 MEQ/L Chloride Level 112 MEQ/L Carbon Dioxide Level 24.5 MEQ/L Nasal Screen MRSA (PCR) MRSA NOT DETECTED Test 05/17/17 04:12 White Blood Count 5.2 TH/MM3 Red Blood Count 3.33 MIL/MM3 Hemoglobin 9.8 GM/DL Hematocrit 29.2 % Mean Corpuscular Volume 87.8 FL Mean Corpuscular Hemoglobin 29.5 PG Mean Corpuscular Hemoglobin Concent 33.6 % Red Cell Distribution Width 14.9 % Platelet Count 300 TH/MM3 Mean Platelet Volume 8.3 FL Prothrombin Time 12.6 SEC Prothromb Time International Ratio 1.2 RATIO Blood Urea Nitrogen 30 MG/DL Creatinine 1.63 MG/DL Random Glucose 111 MG/DL Calcium Level 8.3 MG/DL Sodium Level 144 MEQ/L Potassium Level 3.7 MEQ/L Chloride Level 111 MEQ/L Carbon Dioxide Level 22.6 MEQ/L Anion Gap 10 MEQ/L Estimat Glomerular Filtration Rate 41 ML/MIN Objective Remarks GENERAL: Alert, Oriented x 3, NAD. SKIN: Warm and dry. HEAD: Normocephalic. EYES: No scleral icterus. No injection or drainage. NECK: Supple, trachea midline. No JVD or lymphadenopathy. CARDIOVASCULAR: Regular rate and rhythm without murmurs, gallops, or rubs. RESPIRATORY: Moderate air entry, bibasilar crackles. GASTROINTESTINAL: Abdomen soft, non-tender, nondistended. MUSCULOSKELETAL: No cyanosis. 2+ lower ext edema. BACK: Nontender without obvious deformity. No CVA tenderness. Medications and IVs Current Medications Medications (Trade) Dose Ordered Sig/Elio Route Start Time Stop Time Status Last Admin (Nitrostat Sl) 0.4 mg Q5M PRN SL 05/12/17 19:30 Heparin Sodium/ Dextrose 250 ml @ 10 mls/hr TITRATE PRN IV 05/12/17 19:30 05/13/17 18:38 (Narcan Inj) 0.4 mg UNSCH PRN IV PUSH 05/12/17 20:30 (Norvasc) 5 mg DAILY PO 05/13/17 09:00 Future Hold 05/14/17 08:11 (Aspirin Chew) 81 mg DAILY CHEW 05/13/17 09:00 05/17/17 09:36 (Coreg) 3.125 mg BID PO 05/13/17 09:00 05/17/17 09:36 (KCl) 10 meq EVERY OTHER DAY PO 05/14/17 09:00 05/16/17 09:17 (Lyrica) 75 mg BID PO 05/13/17 09:00 05/17/17 09:35 Patient Own Medication PT OWN MED: Lenalidomide (Revlim... 3 weeks on 1 week of PO 05/12/17 23:00 Future Hold (Protonix) 20 mg DAILY PO 05/13/17 09:00 05/17/17 09:35 (Duoneb Neb) 1 ampule Q4HR NEB PRN NEB 05/12/17 23:00 (Mucomyst 20% Liq) 6 ml BID PO 05/13/17 12:30 05/17/17 09:46 (Lipitor) 40 mg HS PO 05/13/17 21:00 05/16/17 20:54 (NS Flush) 2 ml BID IV FLUSH 05/14/17 21:00 05/17/17 09:46 (NS Flush) 2 ml UNSCH PRN IV FLUSH 05/14/17 15:15 Papaverine HCl 60 mg/Nitroglycerin 100 mcg/Diltiazem HCl 100 mg/Sodium Chloride 100 ml @ 0 mls/hr PEANUT VENDOR IRRIGATION 05/14/17 16:00 05/21/17 15:59 Cefazolin Sodium 500 mg/Sodium Chloride 505 ml @ 0 mls/hr PEANUT VENDOR IRRIGATION 05/14/17 15:15 05/21/17 15:14 Cefazolin Sodium/ Dextrose 50 ml @ 150 mls/hr PEANUT VENDOR IV 05/14/17 15:15 05/21/17 15:14 (Hibiclens 4% Top Soln) 1 applic PEANUT VENDOR TOPICAL 05/14/17 15:15 05/21/17 15:14 Insulin Human Regular 100 units/ Sodium Chloride 100 ml @ 3 mls/hr TITRATE PRN IV 05/14/17 16:00 05/21/17 15:59 (D50w (Vial) Inj) 50 ml UNSCH PRN IV PUSH 05/14/17 15:15 (Restoril) 15 mg HS PRN PO 05/14/17 17:30 (Lasix Inj) 20 mg BID@0900,1800 IV PUSH 05/15/17 18:00 05/17/17 12:34 Iron Sucrose 100 mg/Sodium Chloride 105 ml @ 105 mls/hr DAILY IV 05/16/17 09:00 05/18/17 09:59 05/17/17 12:34 A/P Assessment and Plan - Non-STEMI Echocardiogram 05/13/17 EF 45%, Moderate concentric left ventricular hypertrophy, Moderate mitral valve regurgitation. - Troponins are 9.28, 9.68, 6.78. to continue heparin Drip, Aspirin, Carvedilol, Nitroglycerine PRN, Statin, - s/p Cardiac cath. patient has multivessel coronary artery disease. Cardiothoracic surgery is following. Possible CABG for tomorrow - New onset Congestive heart failure, likely systolic. - Echo shows EF 45%. - Continue beta el, aspirin, Lasix. Will reduce Lasix to 20mg BID. - Consider Lisinopril since he does have reduced EF. - CKD stage III stable - Mild hypernatremia Na 146. - Creatinine around 2.0. - Will reduce Lasix from 40 to 20mg IV BID. - Will check BMP in the AM. - Hypertension - continue Amlodipine 5mg Qday. Controlled. Full code. Heparin drip. Discharge Planning Once cleared by Cardiothoracic Surgery. Nate Slater MD May 17, 2017 15:09
--- NOTE | 2017-05-17 18:03 | HHI.NPPN ---
Subjective History of Present Illness This patient is a 77-year-old male with a history of known chronic kidney disease stage III with a baseline creatinine level of approximately 1.7-1.9. Patient's initial chronic kidney disease was related to nephrosclerosis of hypertension but the patient subsequently developed marked proteinuria with development of a monoclonal gammopathy and was subsequently diagnosis having superimposed myeloma which is being managed by the hematology department at the [facility] in [place]. Patient has been on Revlimid. More recently patient's proteinuria has been improving. Patient subsequently presented to my office however yesterday complaining of increasing lower extremity edema with dyspnea. Renal labs were pending at the time of presentation to the office yesterday. There was a history of a echocardiogram at the [facility] indicating preserved ejection fraction. Because of the severity of the patient's fluid retention with respiratory insufficiency he was advised to be admitted to the hospital for further evaluation and apparently had evidence of acute myocardial injury with elevated troponin levels. Patient denied any chest pain at time of presentation. He does have a history however of aphthous chronic heart disease as well as an abdominal aortic aneurysm. Also previous history of AAA repair. Interval History Patient had no verbal complaints. Family by bedside. Review of Systems General Constitutional: Fatigue Cardiovascular Cardiac: Edema Objective Data Data 05/17/17 05/18/17 19:00 07:00 Intake Total 720 ml Output Total 400 ml Balance 320 ml Intake Oral 720 ml Output Urine Total 400 ml # Voids 3 Vital Signs Date Time Temp Pulse Resp B/P (MAP) Pulse Ox O2 Delivery O2 Flow Rate FiO2 05/17/17 17:00 66 05/17/17 16:00 56 05/17/17 15:00 98.8 70 18 130/64 (86) 94 05/17/17 15:00 58 05/17/17 14:00 58 05/17/17 13:00 62 05/17/17 12:00 74 05/17/17 11:30 98.1 85 18 126/56 (79) 95 05/17/17 11:30 66 05/17/17 08:09 99.3 64 16 124/64 (84) 94 05/17/17 06:00 60 05/17/17 05:00 55 18 114/58 (76) 96 05/17/17 05:00 70 05/17/17 04:00 62 05/17/17 03:00 60 05/17/17 02:00 56 05/17/17 01:00 56 05/17/17 00:00 56 05/16/17 23:15 61 18 127/64 (85) 99 05/16/17 23:00 60 05/16/17 22:00 56 05/16/17 21:00 72 05/16/17 20:15 98.1 65 16 120/60 (80) 98 05/16/17 20:00 66 05/16/17 19:00 54 05/16/17 18:10 62 -: 05/17/17 0412 05/17/17 0412 Physical Exam General Appearance: No Acute Distress, Comfortable Neck Neck Exam: Neck Supple, Trachea Midline Pulmonary Resp Exam: Clear Bilaterally, Breath Sounds Equal Cardiology CV Exam: Regular, Normal Sinus Rhythm Gastrointestinal/Abdomen GI Exam: Soft, Non-Tender Integumentary Skin Exam: Clear, Warm Extremeties Extremities Exam: No Edema Neurologic Neuro Exam: Alert, Awake Psychiatric Psych Exam: Appropriate Responses Assessment/Plan Discussed Condition With: Patient Problem List: (1) CKD (chronic kidney disease) stage 3, GFR 30-59 ml/min ICD Codes: N18.3 - Chronic kidney disease, stage 3 (moderate) Status: Chronic Plan: Renal indices have actually improved somewhat with treatment of his congestive heart failure. Volume status appears to be acceptable. Patient tentatively to have CABG tomorrow. Patient has accepted the risk of acute renal failure and possible dialysis post CABG. Discontinue Mucomyst. Medications should be adjusted for the patient's estimated GFR if clinically indicated. Avoid agents with significant potential for nephrotoxicity possible including NSAIDs for analgesia, iodine contrast agents. Gadolinium is contraindicated if the GFR is below 30. (2) Non-STEMI (non-ST elevated myocardial infarction) ICD Codes: I21.4 - Non-ST elevation (NSTEMI) myocardial infarction Status: Acute Plan: s/p cardiac cath 05/14/17 Reported: Left main is free of significant disease. Left anterior descending artery has a proximal 20-30% stenosis and a 99% stenosis of the LAD. The circumflex is subtotally occluded and goes on to give a large marginal. The right coronary artery is 90% occluded. Left ventriculogram performed in the standard ÁLVAREZ projection reveals an ejection fraction of 35-40%. Patient is scheduled to have a CABG this coming Thursday. Based on the patient's risk factors and current renal function I indicated to him his estimated risk for requiring dialysis post CABG is approximately 7.1% and he indicated to me that he accepts this risk and wishes to proceed with surgery and is clear from a renal point of view as such. (3) Anemia ICD Codes: D64.9 - Anemia, unspecified Status: Chronic Plan: Likely related to a combination of his chronic kidney disease and multiple myeloma. Parental iron as ordered. Would defer to hematology/oncology in regard to possible erythropoietin replacement therapy in view of his history of multiple myeloma. (4) New onset of congestive heart failure ICD Codes: I50.9 - Heart failure, unspecified Status: Acute Plan: Continue diuretic therapy with monitoring of volume status and renal indices. Improving, but still with significant edema EF as per cardiac cath-->35-40% (5) Multiple myeloma, without mention of having achieved remission ICD Codes: C90.00 - Multiple myeloma not having achieved remission Status: Chronic Plan The exam, history, and the medical decision-making described in the above note were completed with the assistance of the MEI. I reviewed and agree with the findings presented. Deedee Lizama MD May 17, 2017 18:03
[2017-05-17 21:55] LABS: BILIRUBIN, URINE NEG (NEG); BLOOD, URINE TRACE (NEG); GLUCOSE,URINE NEG (NEG); KETONE, URINE NEG (NEG); MUCUS URINE FEW /lpf (OCC); NITRITE,URINE NEG (NEG); PH, URINE 5.5 (5.0-8.5); URINE COLOR LIGHT-YELLOW (YELLW/STRAW); URINE LEUKOCYTE ESTERASE NEG (NEG)
[2017-05-17] MEDS: ATORVASTATIN 40 MG TAB PO SCH (22:40)
[2017-05-17] MEDS ORDERED: LACTATED RINGER'S 1000 ML IV PRN (23:45)
[2017-05-17] MEDS ORDERED: CHLORHEXIDINE GLUCONATE 2 % 1 PACK (2 CLOTHS) TOPICAL PRN (23:45)
[2017-05-17] MEDS ORDERED: SODIUM CHLORID 0.9% 500 ML IV PRN (23:45)
[2017-05-17] MEDS ORDERED: POVIDONE IODINE 5% (ANTISEPSIS KIT) 4 APPLICATIONS EACH NARE PRN (23:45)
[2017-05-18] VITALS (22 sets, daily range): BP systolic 91–119; BP diastolic 51–69; PULSE 54–98; RESP 10–16; TEMP 96.9–97.9; O2SAT 95–99
[2017-05-18 04:41] LABS: HEMATOCRIT 30.3 % (39.0-51.0); HEMOGLOBIN 9.8 GM/DL (13.0-17.0); MEAN CELL VOLUME 88.6 FL (80.0-100.0); MEAN CORPUSCULAR HEMOGLOBIN 28.7 PG (27.0-34.0); MEAN CORPUSCULAR HGB CONC 32.4 % (32.0-36.0); MEAN PLATELET VOLUME 8.4 FL (7.0-11.0); PLATELET COUNT 297 TH/MM3 (150-450); RED BLOOD COUNT 3.42 MIL/MM3 (4.50-5.90); RED CELL DISTRIBUTION WIDTH 15.3 % (11.6-17.2); WHITE BLOOD COUNT 5.6 TH/MM3 (4.0-11.0)
[2017-05-18] MEDS: CARVEDILOL 3.125 MG TAB PO SCH (05:43)
[2017-05-18] MEDS ORDERED: HEPARIN SODIUM - SQ 10,000 UNITS/ML VIAL ONE (06:01)
[2017-05-18] MEDS ORDERED: VANCOMYCIN HCL 1000 MG VIAL ONE (06:01)
[2017-05-18] MEDS ORDERED: methylPREDNISolone SOD SUCC 125 MG/2 ML VIAL ONE (06:01)
[2017-05-18] MEDS ORDERED: ceFAZolin 2 GM PREMIX 50 ML ONE (06:02)
[2017-05-18] MEDS ORDERED: SODIUM CHLORIDE 0.9% INJ 50 ML ONE (06:49)
[2017-05-18] MEDS ORDERED: CARDIOPLEGIC IRR 2,000 ML ONE (06:50)
[2017-05-18] MEDS ORDERED: ALBUMIN 25% INJ 50 ML IV ONE (06:51)
[2017-05-18] MEDS ORDERED: POTASSIUM CHLORIDE 40 MEQ/20 ML VIAL ONE (06:51)
[2017-05-18] MEDS ORDERED: SODIUM BICARBONATE 8.4% INJ 100 ML ONE (06:52)
[2017-05-18] MEDS ORDERED: MANNITOL INJ 100 ML ONE (06:52)
[2017-05-18] MEDS ORDERED: HEPARIN SODIUM - IV 10,000 UNITS/10 ML VIAL ONE (06:52)
[2017-05-18] MEDS: PREGABALIN 75 MG CAP PO SCH (09:00)
[2017-05-18] MEDS: PANTOPRAZOLE SOD 20 MG DELAYED RELEASE TAB PO SCH (09:00)
[2017-05-18] MEDS: FUROSEMIDE 20 MG/2 ML VIAL IV PUSH SCH (09:00)
[2017-05-18] MEDS: SODIUM CHLORIDE 0.9% FLUSH 10 ML FLUSH IV FLUSH SCH ×2 (09:00→21:26)
[2017-05-18] MEDS: ASPIRIN 81 MG CHEW TAB CHEW SCH (09:00)
[2017-05-18] MEDS: POTASSIUM CHLORIDE 10 MEQ CAP PO SCH (09:00)
[2017-05-18] MEDS: IRON SUCROSE INJ 100 MG in SODIUM CHLORIDE 0.9% INJ 100 ML IV SCH (09:00)
--- NOTE | 2017-05-18 10:47 | HHI.FF ---
Face to Face Verification Diagnosis: (1) S/P CABG (coronary artery bypass graft) (2) Non-STEMI (non-ST elevated myocardial infarction) (3) New onset of congestive heart failure (4) Anemia (5) CKD (chronic kidney disease) stage 3, GFR 30-59 ml/min (6) Multiple myeloma, without mention of having achieved remission Home Health Nursing Order: Signs/symptoms of disease process CHF education Medication education-adverse effect Wound care and dressing changes Nursing assessment with vital signs Instructions: Heart and Vascular Surgery patients *Special attention to sternal dressing Mandatory frequency Assess and evaluation, 4 days in a row The next week 3X week 2 times a week for 4 weeks 1 time a week for 5 weeks Schedule Heart and Vascular patients for full 60 day certification period Initial visit Review Open Heart Surgery Discharge Instructions (Sternal precautions, Activity, Elastic hose, Incision care, Driving, Incentive spirometry, Smoking, [place], Work and other) Need Betadine to paint incision Medication reconciliation Importance of follow up care/ check on appointments Make calendar record temperature daily When to call [facility] nurse, review instructions, phone list Incentive Spirometry, demonstration Visit 1- Begin discharge instruction for patient family and/ or caregiver using teach back method- Signs and symptoms of infection Disease characteristics Medicines and side effects Foods and nutrition/ appetite Infection control/ hand washing/ hygiene Visit 2- Continue teaching Discharge instructions- include additional information on smoking cessation , sternal dressing (sternal vac) Visit 3- Continue teaching- Cough and deep breathing, incision monitoring. Choose my plate Visit 4- Continue teaching- Discuss limitations Discuss how they are feeling Discuss progress toward goals Remaining visits- continue teaching and monitoring PREVENA Single Use Negative Wound Therapy System Caregiver Instruction Sheet 1. A Prevena dressing system was applied to the chest incision during surgery , to promote wound healing. It works via a suction device (negative pressure wound therapy) to remove low to moderate levels of exudate (drainage) and infectious materials. We recommend that the device stay in place for up to seven days, from day of surgery. 2. Day of Surgery___05/18/17 Day of Removal ____05/25/17 3. The dressing should only be removed by a health wound care rn. Please arrange removal of device to coincide with Home Health visit and or with Nursing staff at Rehab 4. If skin reddening or irritation of skin occurs, or excessive drainage, please notify the Cardiovascular Surgeons office at [phone]. 5. Light showering is permissible; however the pump should be disconnected and placed in safe location, where it will not get wet. The dressing should not be exposed to direct spray or submerged in water. No bath tub / shower only. Ensure the end of the tubing attached to the dressing is facing down so that water does not enter the top of the tube. 6. To remove Prevena dressing: press purple button to turn off device / remove the suction. Then disconnect the tubing from the pump. The fixation strips should be stretched away from the skin and the dressing lifted at one corner and peeled back until it has been fully removed. 7. After removal, it is ok to shower daily using liquid dial soap and clean wash cloth, rinse and pat dry, and leave incision open to air dry. For any concerns regarding Prevena dressing, and or wounds, please contact Tamara Mcdowell, patient navigator at [phone] or notify the Cardiovascular Surgeons office at [phone]. Incentive spirometry Q1 hr x 10, while awake, also use acapella device hourly whole awake Sternal Breast Bone Precautions: NO pushing or pulling, ( pt must use sternal pillow to support chest with all activities and with coughing ( takes up to 3 months breast bone to heal ) Daily incision care: ok to shower daily, no tub bath. Wash all incisions with liquid dial soap, clean wash cloth to each site, rinse and pat dry. Observe for any signs of infection, such as drainage which is dark yellow, estr[place], green or foul smelling. Immediately report to the surgeon any drainage from the chest incision, or legs, and for any abnormal drainage from the chest tube sites. Notify surgeon if any temp >101.5 degrees F. When specialty dressing removed/ or if you do not have one, continue to shower daily as above, then rinse and pat incision dry and paint with betadine daily x 5 days. Allow steri strips to fall off if you have any. Avoid lotions, creams, salves, oils, etc. for the first month Please see attached forms for additional instructions regarding post Open Heart specialty wound vacuum dressings. KATINA or Prevena , Dressing to be removed by Nursing staff on For Dr. Vivas patients , please obtain CBC, BMP, PA & Lat CXR in 2 weeks, results to Dr. Vivas ( prescription will be given) ( ) (Tele: [phone]) , F/U appointment: as per DC instructions: PCP in 2 weeks, CV surgeon 2 weeks, Litigation Paralegal 3-4 weeks For any questions regarding incisions/ dressing / meds / post op care or above Symptoms, Thursday 8am-5pm Heart & Vascular Surgery Office ( Dr. Seals & Dr. Vivas), After Hours / Nights (5pm -8am) Weekends and Holidays Please call [facility] Cardiac Intermediate Care Unit (CIC) Charge Nurse I have seen patient Barbara Nicholas on 05/18/17. My clinical findings support the need for the requested home health care services because: Deconditioned w/ increased weakness I certify that my clinical findings support that this patient is homebound because: Post-op weakness Judith Gutierrez May 18, 2017 10:47
[2017-05-18] MEDS ORDERED: ceFAZolin INJ 1,000 MG VIAL ONE (11:16)
[2017-05-18] MEDS ORDERED: AMINOCAPROIC ACID INJ 250 MG/ML 20 ML VIAL IV ONE (12:00)
[2017-05-18] MEDS ORDERED: MAGNESIUM SULFATE 1 GM/2 ML VIAL IV ONE (12:00)
[2017-05-18] MEDS ORDERED: GLYCOPYRROLATE 0.2 MG/ML VIAL IV ONE (12:00)
[2017-05-18] MEDS ORDERED: SODIUM BICARBONATE 8.4% INJ 50 MEQ/50 ML SYR IV ONE (12:00)
[2017-05-18] MEDS ORDERED: LIDOCAINE HCL 1% PF 5 ML SYRINGE OTHER ONE (12:00)
[2017-05-18] MEDS ORDERED: SODIUM CHLOR 0.9% 1000 ML INJ 2,000 ML IV ONE (12:00)
[2017-05-18] MEDS ORDERED: PHENYLEPHRINE HCL 10 MG/ML VIAL IV ONE (12:00)
[2017-05-18] MEDS ORDERED: NITROGLYCERIN 50 MG/DEXTROSE 5% SOLN 250 ML BTL IV ONE (12:00)
[2017-05-18] MEDS ORDERED: EPINEPHrine HCL (1:1000) 1 MG/ML VIAL IV ONE (12:00)
[2017-05-18] MEDS ORDERED: VECURONIUM BROMIDE 10 MG VIAL IV ONE (12:00)
[2017-05-18] MEDS ORDERED: PROTAMINE SULFATE 250 MG/25 ML VIAL IV ONE (12:00)
[2017-05-18] MEDS ORDERED: SUCCINYLCHOLINE CHLORIDE 100 MG/5 ML SYRINGE IV PUSH ONE (12:00)
[2017-05-18] MEDS ORDERED: SODIUM CHLOR 0.9% 250 ML INJ 750 ML IV ONE (12:00)
[2017-05-18] MEDS ORDERED: DEXMEDETOMIDINE HCL 200 MCG/2 ML VIAL IV ONE (12:00)
[2017-05-18] MEDS ORDERED: CALCIUM CHLORIDE 10% SOLN 1 GRAM/10 ML SYR IV ONE (12:00)
[2017-05-18] MEDS ORDERED: HEPARIN SODIUM - SQ 10,000 UNITS/ML VIAL SQ ONE (12:00)
[2017-05-18] MEDS ORDERED: PHENYLEPH/NS 1000 MCG/10 ML SYR IV ONE (12:00)
[2017-05-18] MEDS ORDERED: NORMOSOL R INJ 2,000 ML IV ONE (12:00)
[2017-05-18] MEDS ORDERED: LACTATED RINGER'S 1000 ML INJ 2,000 ML IV ONE (12:00)
[2017-05-18] MEDS ORDERED: ONDANSETRON HCL 4 MG/2 ML VIAL IV PUSH PRN (13:30)
[2017-05-18] MEDS ORDERED: RESP: ALBUTEROL 2.5 MG/IPRATROPIUM 0.5 MG NEB (PRN) NEB (13:30)
[2017-05-18] MEDS ORDERED: CALCIUM CHLORIDE INJ 1 GM in SODIUM CHLORIDE 0.9% INJ 100 ML IV PRN (13:30)
[2017-05-18] MEDS ORDERED: DEXMEDETOMIDINE INJ 200 MCG in SODIUM CHLORIDE 0.9% INJ 50 ML IV PRN (13:30)
[2017-05-18] MEDS ORDERED: CALCIUM CHLORIDE 10% 1 GRAM/10 ML VIAL IV PUSH PRN (13:30)
[2017-05-18] MEDS ORDERED: hydrALAZINE HCL 20 MG/ML VIAL IV PUSH PRN (13:30)
[2017-05-18] MEDS ORDERED: RESP: RACEPINEPHRINE 2.25% 0.5 ML NEB NEB PRN (13:30)
[2017-05-18] MEDS ORDERED: ACETAMINOPHEN 650 MG SUPP RECTAL PRN (13:30)
[2017-05-18] MEDS ORDERED: Post-op Orders (for Pharmacy) OTHER ONE (13:30)
[2017-05-18] MEDS ORDERED: SODIUM BICARBONATE 8.4% SOLN 50 MEQ/50 ML VIAL IV PUSH PRN ×2 (13:30)
[2017-05-18] MEDS ORDERED: DEXTROSE 50% IN WATER 50 ML VIAL(D50) IV PUSH PRN (13:30)
[2017-05-18] MEDS ORDERED: SODIUM CHLORIDE 0.9% FLUSH 10 ML FLUSH IV FLUSH PRN (13:30)
[2017-05-18] MEDS ORDERED: METOPROLOL TARTRATE 5 MG/5 ML VIAL IV PUSH PRN (13:30)
[2017-05-18] MEDS ORDERED: MAGNESIUM SULFATE INJ 2 GM in SODIUM CHLORIDE 0.9% INJ 100 ML IV PRN ×4 (13:30)
[2017-05-18] MEDS ORDERED: POTASSIUM CHLORIDE 20 MEQ CONTROLLED RELEASE TAB PO PRN ×2 (13:30)
[2017-05-18] MEDS ORDERED: ACETAMINOPHEN 325 MG TAB PO PRN (13:30)
[2017-05-18] MEDS ORDERED: POTASSIUM CHLOR 20 MEQ PREMIX 100 ML IV PRN ×3 (13:30)
[2017-05-18] MEDS ORDERED: CLEVIDIPINE INJ 50 ML IV PRN (13:30)
--- NOTE | 2017-05-18 13:49 | PD.OP ---
cc: Aniket Clifton MD; Shawna Vivas MD Operative Report Date of Surgery: May 18, 2017 Preoperative Diagnosis: (1) CAD (coronary artery disease) (2) Non-STEMI (non-ST elevated myocardial infarction) (3) New onset of congestive heart failure Postoperative Diagnosis: same Procedure: CABG x 4 HEAD to LAD SVG to OM SVG to D1 SVG to RCA EVH (R and L) HEYDI Anesthesia: Dr. Mark Surgeon: Shawna Vivas [facility]anner(s): Alysha Flores, MACARIO Operation and Findings: The risks, benefits, complications, treatment options, and expected outcomes were discussed with the patient. The possibilities of reaction to medication, pulmonary aspiration, perforation of viscus, bleeding, recurrent infection, the need for additional procedures, failure to diagnose a condition, and creating a complication requiring transfusion or operation were discussed with the patient. The patient concurred with the proposed plan, giving informed consent. The site of surgery properly noted/marked. The patient was taken to Operating Room, identified as Barbara Nicholas and the procedure verified as CABG, EVH, HEYDI. A Time Out was held and the above information confirmed. Standard monitoring lines and Rico catheter were placed. General anesthesia was induced. The patient was prepped and draped in a sterile fashion. A median sternotomy was performed and electrocautery was used to obtain hemostasis. The left internal mammary artery was procured as a pedicle from the 7th rib to the 1st rib in the usual manner. Simultaneously left and right greater saphenous vein was procured from the left leg using a minimally invasive endoscopic technique. The vein was prepared for anastomosis and the leg wound was irrigated and closed in 2 layers. The pericardium was opened and a pericardial sling was created using interrupted 0 silk sutures. There were dense adhesions between the epicardium and pericardium and the heart had to be mobilized by lysing these adhesions. The patient was heparinized for cardiopulmonary bypass and the distal mammary pedicle was instrumented for anastomosis. The heart was instrumented for cardiopulmonary bypass in the usual manner. Antegrade blood cardioplegia was employed. The patient was placed on cardiopulmonary bypass. An aortic cross-clamp was applied and the heart was arrested using cold blood cardioplegia. Antegrade cardioplegia was administered after he each anastomosis. After adequate arrest, the distal right coronary circulation was investigated and the distal RCA was opened with a [place] blade and found to be a 1.5 millimeter good target. Saphenous vein was approximated to the RCA artery using a running 7 0 Prolene suture. The graft was measured for length and orientation and the proximal anastomosis was constructed to the ascending aorta using a running 5 0 Prolene suture after creating an aortotomy with a 5 millimeter punch. The 1st circumflex marginal artery was then opened with a [place] blade and found to be a 1.5 millimeter good target. Saphenous vein was approximated to the OM1 artery using a running 7 0 Prolene suture. The graft was measured for length and orientation and the proximal anastomosis was constructed to the ascending aorta using a running 5 0 Prolene suture after creating an aortotomy with a 5 millimeter punch. The D1 artery was opened with a [place] blade and found to be a 1.5 millimeter good target. Saphenous vein was approximated to the D1 artery using a running 7 0 Prolene suture. The graft was measured for length and orientation and was suspended from the pericardium. The distal LAD was opened with a [place] blade and found to be a 1.5 millimeter good target. The left internal mammary artery was approximated to the LAD using a running 7 0 Prolene suture. The pedicle was attached to the epicardium using interrupted 5 0 silk suture. The patient was systemically rewarmed and received a hotshot dose of warm blood cardioplegia. The aorta was vented and the proximal anastomosis to the D1 graft was accomplished using a running 5 0 Prolene suture after creating an aortotomy was a 5 millimeter punch. The cross-clamp was removed and all proximal and distal anastomoses were examined for hemostasis. Temporary atrial pacing on wires were positioned and brought out through the skin in the usual manner. The patient was paced at 80 beats per minute and weaned from cardiopulmonary bypass. Protamine was given. There was no adverse reaction. Decannulation was carried out without incident. Wound was checked for hemostasis which was obtained using electrocautery. A 36 Italian mediastinal and 32 Italian left pleural chest tubes were placed and secured to the skin with 0 silk suture. The sternum was closed with stainless steel wire. The fascia was closed with 1. PDS. The subcutaneous tissue was closed using a running 2-0 Vicryl suture. The skin was closed with 4- 0 Monocryl. Sterile dressings were placed. At the end of the operation, all sponge, instruments, and needle counts were correct. The patient was transferred to the CVICU in stable condition. Findings: Dense pericardial adhesions. EF ~30%, good distal targets. Friable tissue in general XC: 83 min CPB: 117 min Drains: mediastinal x 1 pleural x 1 Specimens: cardiac mass found on the anterior epicardial surface consistent with a cyst Complications: none Disposition: to CVICU in stable condition Shawna Vivas MD May 18, 2017 13:49
[2017-05-18] MEDS: INSULIN REGULAR (IV INFUSION) 100 UNITS in SODIUM CHLORIDE 0.9% INJ 99 ML IV PRN (14:00)
[2017-05-18] MEDS ORDERED: MIDAZOLAM HCL 2 MG/2 ML VIAL ONE ×2 (14:22→14:23)
[2017-05-18] MEDS ORDERED: fentaNYL CITRATE 1000 MCG/20 ML VIAL ONE (14:22)
--- NOTE | 2017-05-18 14:52 | RADRPT ---
EXAM DATE/TIME: 05/18/2017 14:17 [facility] COMPARISON: CHEST PA & LAT, May 12, 2017, 17:08. INDICATIONS : Post CABG MEDICAL HISTORY : Hypercholesterolemia. Hypertension. Myocardial infarction. Hearing loss. Renal failure. Arthritis. Pr ostate cancer. Chemotherapy. Radiation therapy. Measles. SURGICAL HISTORY : Abdominal aortic aneurysm repair. Prostatectomy. Cardiac surgery. ENCOUNTER: Subsequent ACUITY: 4 - 6 days PAIN SCORE: Non-responsive. LOCATION: Bilateral chest FINDINGS: There is an interim median sternotomy. CABG. ET tube terminates above the ayaz with left subclavian venous catheter terminating in superior vena cava and nasogastric tube to the midline the stomach. L eft chest tube is in place. Minimal basal atelectasis appreciated with well defined mediastinum and n o pneumothorax. CONCLUSION: Satisfactory postop open heart cardiac surgery. No pneumothorax and mediastinum is distinct Jacques Delgado MD on May 18, 2017 at 14:48 Board Certified Radiologist. This report was verified electronically.
[2017-05-18] MEDS: LACTATED RINGER'S 1000 ML INJ 500 ML IV PRN ×2 (15:10→17:00)
[2017-05-18] MEDS: ACETAMINOPHEN 1000 MG/100 ML 100 ML IV SCH ×2 (15:28→21:23)
[2017-05-18] MEDS: RESP: ALBUTEROL 2.5 MG/IPRATROPIUM 0.5 MG NEB (SCH) NEB ×2 (15:32→20:11)
[2017-05-18] MEDS ORDERED: PROPOFOL 500 MG/50 ML INJ 50 ML ONE (16:36)
[2017-05-18] MEDS: METOCLOPRAMIDE HCL 10 MG/2 ML VIAL IV PUSH SCH ×2 (17:00→21:26)
[2017-05-18] MEDS ORDERED: PROPOFOL 1000 MG/100 ML INJ 100 ML IV PRN (17:45)
[2017-05-18] MEDS: EPINEPHrine (1:1000) INJ 2 MG in DEXTROSE 5% IN WATER INJ 250 ML IV PRN ×4 (17:45→23:10)
--- NOTE | 2017-05-18 17:46 | PD.CONS ---
[facility] Service Critical Care Medicine Consult Requested By Dr. Vivas Reason for Consult perioperative management of hemodynamics Primary Care Physician Brandon Cuellar M.D. History of Present Illness This is a 77-year-old male with multivessel coronary disease who underwent on pump CABG 4: EHAD to LAD, vein to OM, vein to D1, vein to RCA. He underwent uncomplicated procedure and was taken to the CVICU in intubated. Critical-care medicine was consulted to evaluate and manage his medical comorbidities. Intraoperatively he received 4 units of packed blood blood cells on pump as well as 1 unit of platelets. In the immediate postoperative period, I evaluated the patient on arrival to the CVICU. He had minimal chest tube output , and good urine output. I observe the patient for proximally 2 hours where he had greater than 50 cc of urine output each hour as well as minimal chest tube output totaling less than 100 cc over 2 hours. Patient aroused from anesthesia as expected and followed commands in all 4 extremities. He was placed on spontaneous breathing trial which he passed without incident. I reevaluated the patient prior to extubation and he met extubation criteria with a head lift , good forced vital capacity, following commands in all 4 extremities, and visibly strong. Approximately 3-5 minutes after extubation, the patient acutely became short of breath, complaints he "could not breathe" and became unresponsive and cyanotic in the bradycardic. I was immediately called and immediately came to the bedside where the patient was labored and near respiratory arrest. I started [id number] ventilation and upon adequate chest rise and ventilation, the patient's hemodynamics normalized. He remained obtunded and unresponsive and so emergently intubated him, see separate procedure note for details. There is no evidence of laryngeal edema, hypopharyngeal edema, or any gastric or oral secretion in his hypopharynx to suggest an aspiration event. After this, the patient was slightly hypotensive and bradycardic. The patient was AI paced at 80. I performed bedside critical care ultrasound which did demonstrate a small posterior pericardial effusion isolated to be around the posterior wall of the left ventricle. There was no evidence of effusion around the atria or the right ventricle and no evidence of temporal physiology echocardiographically. His LV demonstrated grossly preserved function without evidence of regional wall motion abnormalities. Review systems is unobtainable due to his clinical condition. Review of Systems ROS Limitations: Clinical Condition, Intubated, Altered Mental Status Past Family Social History Allergies: Coded Allergies: No Known Allergies (Unverified , 07/05/09) Past Medical History Multivessel coronary artery disease Hyperlipidemia COPD Chronic's kidney disease stage III, baseline creatinine 1.7 Multiple myeloma Obstructive sleep apnea on CPAP at home Hypertension Mild aortic stenosis Moderate mitral valve regurgitation Iron deficiency anemia History of Prostate cancer Past Surgical History Cardiac catheterization in 1991 AAA repair with endograft Prostatectomy with radiation and Lupron therapy Reported Medications Multi Vitamin Daily (Multiple Vitamin) 1 Tab Tab Tyshawn-Citrate Plus Vitamin D (Calcium Citrate-Vitamin D) 250-100 Mg-Unit Tab 2 Tab PO BID Ventolin Hfa 18 GM Inh (Albuterol Sulfate) 90 Mcg/Act Aer 2 Puff INH Q4-6H PRN Lyrica (Pregabalin) 75 Mg Cap 75 Mg PO BID Pravastatin 40 Mg Tab 40 Mg PO DAILY Vitamin D3 (Cholecalciferol) 2,000 Unit Cap 2,000 Units PO DAILY Potassium Chloride ER (Potassium Chloride) 10 Meq Cap 10 Meq PO EVERY OTHER DAY Bumetanide 1 Mg Tab 1 Mg PO EVERY OTHER DAY Omeprazole 20 Mg Cap 20 Mg PO DAILY Aspirin 81 Mg Chew 81 Mg CHEW DAILY Revlimid (Lenalidomide) 10 Mg Capsule 10 Mg PO 3 WEEKS ON 1 WEEK OF Coreg (Carvedilol) 3.125 Mg Tab 3.125 Mg PO BID Amlodipine (Amlodipine Besylate) 5 Mg Tab 5 Mg PO DAILY Active Ordered Medications See MAR Family History Mother from heart failure Father had lung cancer Social History Prior smoker, denies alcohol Physical Exam Vital Signs Vital Signs Date Time Temp Pulse Resp B/P (MAP) Pulse Ox O2 Delivery O2 Flow Rate FiO2 05/18/17 16:43 99 40 05/18/17 16:13 95 40 05/18/17 16:10 99 Nasal Cannula 4 05/18/17 15:26 98 40 05/18/17 14:04 97 50 05/18/17 06:00 56 05/18/17 05:00 98 05/18/17 04:00 54 05/18/17 03:50 97.9 63 16 96/55 (69) 97 05/18/17 03:00 61 05/18/17 02:00 62 05/18/17 01:00 64 05/18/17 00:00 58 05/17/17 23:45 99.0 58 18 112/56 (74) 97 1/14/18 23:00 61 05/17/17 22:00 80 05/17/17 21:00 90 05/17/17 20:00 64 05/17/17 19:25 99.0 66 16 110/57 (74) 98 05/17/17 19:00 68 05/17/17 18:00 66 Physical Exam On my initial physical exam postoperatively, the patient was following commands , the patient's chest tube output was less than 100 cc over the subsequent 2 hours postoperatively, the patient's urine output was greater than 50 cc an hour. The patient's blood gas and labs were within normal limits. The patient was following commands moving all 4 extremities, was warm and well perfused. Initially his underlying rhythm appeared to me to be a third-degree heart block with a underlying ventricular rhythm and the 30s, but was paced AAI at 80. On my second reevaluation, the patient was cyanotic, obtunded, unresponsive, bradycardic, in extremis. On my third reevaluation, the patient was now again following commands in all 4 extremities. Was again warm and well-perfused. On reevaluation of underlying rhythm, the patient's underlying rhythm now appeared to be sinus bradycardia with a ventricular rate in the 50s, again AAI paced at 80. Laboratory Laboratory Tests Test 05/17/17 20:15 05/18/17 03:51 Urine Color LIGHT-YELLOW Urine Turbidity CLEAR Urine pH 5.5 Urine Specific [place]yer[place] 1.007 Urine Protein NEG Urine Glucose (UA) NEG Urine Ketones NEG Urine Occult Blood TRACE Urine Nitrite NEG Urine Bilirubin NEG Urine Urobilinogen LESS THAN 2.0 Urine Leukocyte Esterase NEG Urine RBC 3 Urine Mucus FEW Microscopic Urinalysis Comment CULT NOT INDICATED White Blood Count 5.6 Red Blood Count 3.42 Hemoglobin 9.8 Hematocrit 30.3 Mean Corpuscular Volume 88.6 Mean Corpuscular Hemoglobin 28.7 Mean Corpuscular Hemoglobin Concent 32.4 Red Cell Distribution Width 15.3 Platelet Count 297 Mean Platelet Volume 8.4 Result Diagram: 05/18/17 0351 05/17/17 0412 Imaging Last Impressions Chest X-Ray 05/18/17 0000 Signed Impressions: Service Date/Time: Thursday, May 18, 2017 14:17 - CONCLUSION: Satisfactory postop open heart cardiac surgery. No pneumothorax and mediastinum is distinct Jacques Delgado MD Lower Extremity Ultrasound 05/14/17 0000 Signed Impressions: Service Date/Time: May 15:27 - CONCLUSION: 1. Lower extremity venous mapping, as above. Raymond Islas MD Carotid Artery Ultrasound 05/14/17 0000 Signed Impressions: Service Date/Time: May 15:42 - CONCLUSION: 1. No significant carotid flow limiting stenosis. 2. Antegrade vertebral artery flow bilaterally. Raymond Islas MD Assessment and Plan Assessment and Plan Assessment: 77-year-old male with coronary artery disease now postop day 0 status post 4 vessel CABG (HEAD-->LAD, SVG-->OM, SVG-->D1, SVG-->RCA). His course is complicated by what clinically appears to be a post-extubation respiratory arrest. Clinically and by history, and event such as acute laryngospasm or acute upper airway obstruction leading to acute hypoxia and hypercarbia seems to be highest on the differential, particularly because hemodynamic stability and clinical improvement came briskly with bag valve mask ventilation. Regardless, he is now following commands and more hemodynamically stable. At this point we will leave him intubated overnight, and attempt in the AM a second SBT and trial of extubation if he remains stable. Very critically ill with recent CABG, post-op respiratory arrest. Active problems: POD 0 s/p CABG x 4 Sinus bradycardia requiring epicardial pacing Respiratory arrest post-extubation requiring emergent reintubation Plan: propofol for goal RASS -2 repeat SBT in AM continue epi for now, will wean as tolerated if remains hemodynamically stable q1h uop q1h chest tube output frequent neuro checks abg in AM electrolyte replacement may need additional ivf resuscitation post-CABG. continue AAI pacing at 80 This patient remains critically ill with one or more organ systems which are or may become a threat to life. I have spent in excess of 94 minutes discontinuously in the care and management of this patient. This time is exclusive of procedures, and includes, but is not limited to, evaluation of the patient, review of the medical record, discussions with family, consultants, nursing staff, or respiratory therapy, and documentation in the medical record. Code Status Full Code Discussed Condition With Marcello Goins MD May 18, 2017 17:46
[2017-05-18] MEDS: ALBUMIN 5% INJ 250 ML IV PRN ×2 (18:28→21:23)
--- NOTE | 2017-05-18 20:20 | PD.PROCEDR ---
Procedure Note Procedure Endotracheal Intubation Diagnosis: Acute respiratory arrest Indications: Acute hypoxic respiratory failure Consent: Emergent Anesthesia: none Description of the Procedure: Patient was recently extubated and initially fine, and acutely became short of breath complaining he could not breathe. He became acutely unresponsive, hypoxic, cyanotic, bradycardic. I was called and immediately arrived at the bedside and initiated bag valve mask ventilation. Upon adequate air entry using [id number] ventilation, the patient's bradycardia improved and his hemodynamics improved. Despite this, his oxygenation did not improve, and he was emergently intubated. A Waller #2 was used for laryngoscopy and a Grade I view was obtained. There was no evidence of laryngeal edema or hypopharyngeal edema or oral secretions or gastric contents in the hypopharynx or larynx. A 8.0 cuffed endotracheal tube was inserted atraumatically through the vocal cords. Confirmation of correct endotracheal tube placement was made by equal and bilateral breath sounds and colorimetric CO2 detection. The endotracheal tube was secured at 23 cm at the teeth. I personally performed the procedure. Marcello New MD May 18, 2017 20:20
--- NOTE | 2017-05-18 20:30 | RADRPT ---
EXAM DATE/TIME: 05/18/2017 20:13 [facility] COMPARISON: CHEST SINGLE AP, May 18, 2017, 14:17. INDICATIONS : ET and NG tube placement. MEDICAL HISTORY : None. SURGICAL HISTORY : None. ENCOUNTER: Initial ACUITY: 1 day PAIN SCORE: Non-responsive. LOCATION: Bilateral chest FINDINGS: A single portable frontal view of the chest shows the tip of the endotracheal tube 5 cm proximal to t he ayaz. Nasogastric tube tip courses off the inferior margin of the film. Left-sided thoracostomy tube. Left subclavian central line. No pneumothoraces. Bibasilar consolidations. These are more prono unced than the prior study. Heart is mildly enlarged. Median sternotomy wires. CONCLUSION: 1. Slight worsening of the bibasilar consolidations. 2. Lines and tubes as detailed above. Cornelio Garcia Jr., MD on May 18, 2017 at 20:25 Board Certified Radiologist. This report was verified electronically.
[2017-05-18] MEDS: ATORVASTATIN 40 MG TAB PO SCH (21:00)
[2017-05-19] VITALS (19 sets, daily range): BP systolic 102–162; BP diastolic 49–66; PULSE 53–80; RESP 14–16; TEMP 97.8–99.1; O2SAT 93–100
[2017-05-19] MEDS: INSULIN REGULAR (IV INFUSION) 100 UNITS in SODIUM CHLORIDE 0.9% INJ 99 ML IV PRN (01:04)
[2017-05-19] MEDS: RESP: ALBUTEROL 2.5 MG/IPRATROPIUM 0.5 MG NEB (SCH) NEB ×3 (02:52→20:41)
[2017-05-19] MEDS: EPINEPHrine (1:1000) INJ 2 MG in DEXTROSE 5% IN WATER INJ 250 ML IV PRN ×4 (03:16→06:50)
[2017-05-19] MEDS: ACETAMINOPHEN 1000 MG/100 ML 100 ML IV SCH ×2 (03:18→09:48)
[2017-05-19 03:38] LABS: HEMATOCRIT 28.1 % (39.0-51.0); HEMOGLOBIN 9.8 GM/DL (13.0-17.0); MEAN CELL VOLUME 84.6 FL (80.0-100.0); MEAN CORPUSCULAR HEMOGLOBIN 29.6 PG (27.0-34.0); PLATELET COUNT 248 TH/MM3 (150-450); RED BLOOD COUNT 3.32 MIL/MM3 (4.50-5.90); RED CELL DISTRIBUTION WIDTH 16.1 % (11.6-17.2); WHITE BLOOD COUNT 12.5 TH/MM3 (4.0-11.0)
[2017-05-19 04:03] LABS: BICARBONATE 22.3 MEQ/L (21.0-32.0); CALCIUM 8.6 MG/DL (8.5-10.1); CREATININE 2.27 MG/DL (0.60-1.30); MAGNESIUM 3.7 MG/DL (1.5-2.5); PHOSPHORUS 4.3 MG/DL (2.5-4.9)
--- NOTE | 2017-05-19 05:11 | RADRPT ---
EXAM DATE/TIME: 05/19/2017 04:35 [facility] COMPARISON: CHEST SINGLE AP, May 18, 2017, 20:13. INDICATIONS : Shortness of breath. MEDICAL HISTORY : None. SURGICAL HISTORY : None. ENCOUNTER: Subsequent ACUITY: 2 days PAIN SCORE: 0/10 LOCATION: Bilateral chest FINDINGS: The patient is status post sternotomy. ET tube and NG tube and left subclavian line are well placed. There is a left chest tube. A pneumothorax is not seen. This increased density the bases bilaterally being worse on the left. CONCLUSION: Consolidation or atelectasis at the bases being worse on the left. This is unchanged from the prior e xam. Darrell Melendez MD on May 19, 2017 at 5:08 Board Certified Radiologist. This report was verified electronically.
--- NOTE | 2017-05-19 07:34 | HHI.CCPN ---
Subjective Remarks/Hospital Course This is a 77-year-old male with multivessel coronary disease who underwent on pump CABG 4: HEAD to LAD, vein to OM, vein to D1, vein to RCA. He underwent uncomplicated procedure and was taken to the CVICU in intubated. Critical-care medicine was consulted to evaluate and manage his medical comorbidities. Intraoperatively he received 4 units of packed blood blood cells on pump as well as 1 unit of platelets. In the immediate postoperative period, I evaluated the patient on arrival to the CVICU. He had minimal chest tube output , and good urine output. I observe the patient for proximally 2 hours where he had greater than 50 cc of urine output each hour as well as minimal chest tube output totaling less than 100 cc over 2 hours. Patient aroused from anesthesia as expected and followed commands in all 4 extremities. He was placed on spontaneous breathing trial which he passed without incident. I reevaluated the patient prior to extubation and he met extubation criteria with a head lift , good forced vital capacity, following commands in all 4 extremities, and visibly strong. Approximately 3-5 minutes after extubation, the patient acutely became short of breath, complaints he "could not breathe" and became unresponsive and cyanotic in the bradycardic. I was immediately called and immediately came to the bedside where the patient was labored and near respiratory arrest. I started [id number] ventilation and upon adequate chest rise and ventilation, the patient's hemodynamics normalized. He remained obtunded and unresponsive and so emergently intubated him, see separate procedure note for details. There is no evidence of laryngeal edema, hypopharyngeal edema, or any gastric or oral secretion in his hypopharynx to suggest an aspiration event. After this, the patient was slightly hypotensive and bradycardic. The patient was AI paced at 80. I performed bedside critical care ultrasound which did demonstrate a small posterior pericardial effusion isolated to be around the posterior wall of the left ventricle. There was no evidence of effusion around the atria or the right ventricle and no evidence of temporal physiology echocardiographically. His LV demonstrated grossly preserved function without evidence of regional wall motion abnormalities. Review systems is unobtainable due to his clinical condition. SUBJ 05/19/17: Remains intubated sedated with low dose propofol. Epinephrine was increased to 10 mcg/m overnight persistent hypotension. UO marginal 10-15 ml per hour. Received 6 L crystalloids and 4 units of PRBC yesterday. 25 g of albumin and 40 mg IV Lasix 1. Discussed with Dr. Juan. Attempt SBT Objective Vital Signs Date Time Temp Pulse Resp B/P (MAP) Pulse Ox O2 Delivery O2 Flow Rate FiO2 05/19/17 06:50 60 105/42 05/19/17 03:15 98 Mechanical Ventilator 40 05/19/17 03:00 97.8 14 05/18/17 16:10 4 Intake and Output 05/19/17 05/19/17 05/20/17 08:00 16:00 00:00 Intake Total 714.6 ml Output Total 380 ml Balance 334.6 ml Result Diagram: 05/19/17 0300 05/19/17 0300 Imaging Last Impressions Chest X-Ray 05/18/17 0000 Signed Impressions: Service Date/Time: Thursday, May 18, 2017 14:17 - CONCLUSION: Satisfactory postop open heart cardiac surgery. No pneumothorax and mediastinum is distinct Jacques Delgado MD Lower Extremity Ultrasound 05/14/17 0000 Signed Impressions: Service Date/Time: May 15:27 - CONCLUSION: 1. Lower extremity venous mapping, as above. Raymond Islas MD Carotid Artery Ultrasound 05/14/17 0000 Signed Impressions: Service Date/Time: May 15:42 - CONCLUSION: 1. No significant carotid flow limiting stenosis. 2. Antegrade vertebral artery flow bilaterally. Raymond Islas MD Objective Remarks GENERAL: Intubated sedated remains on propofol SKIN: Warm and dry. HEAD: Normocephalic. EYES: No scleral icterus. No injection or drainage. ENT: Orotracheally intubated NECK: Supple, trachea midline. CARDIOVASCULAR: Midline CABG insertion dressing intact. Pericardial rub heard. HR 80, paced RESPIRATORY: Air entry equal bilaterally. Chest and mediastinal tubes in place with serosanguineous drainage GASTROINTESTINAL: Abdomen soft, non-tender, nondistended. MUSCULOSKELETAL: No cyanosis. 2+ lower ext edema. NEURO: Intubated sedated. Moves extremities spontaneously. Not following commands. Procedures Echo 05/13/2017 The left ventricular systolic function is mildly reduced with an estimated ejection fraction of 45%. Normal left ventricular size. Moderate concentric left ventricular hypertrophy. The left atrial size is [id number] dilated. Moderate mitral valve regurgitation. Moderate thickening of the aortic valve leaflets. Mild aortic valve regurgitation. There is trace tricuspid valve regurgitation. The estimated pulmonary arterial pressure is 40 mmHg. Trivial pulmonary valve regurgitation. A/P Assessment and Plan Assessment: 77-year-old male with coronary artery disease now postop day 0 status post 4 vessel CABG (HEAD-->LAD, SVG-->OM, SVG-->D1, SVG-->RCA). His course is complicated by what clinically appears to be a post-extubation respiratory arrest. Clinically and by history, and event such as acute laryngospasm or acute upper airway obstruction leading to acute hypoxia and hypercarbia seems to be highest on the differential, particularly because hemodynamic stability and clinical improvement came briskly with bag valve mask ventilation. Regardless, he is now following commands and more hemodynamically stable. At this point we will leave him intubated overnight, and attempt in the AM a second SBT and trial of extubation if he remains stable. Very critically ill with recent CABG, post-op respiratory arrest. Active problems: POD 1 s/p CABG x 4 Sinus bradycardia requiring epicardial pacing Respiratory arrest post-extubation requiring emergent reintubation Cardiogenic shock on epinephrine Acute on chronic renal failure, oliguria Plan: Hold propofol and initiate weaning trials Attempt PS/PEEP 0/0 briefly prior to extubation Start weaning epinephrine, currently on 10 mcg/min IV albumin 25 g, IV Lasix 40 mg 1 q1h uop q1h chest tube output frequent neuro checks SBT with ABG and parameters electrolyte replacement may need additional ivf resuscitation post-CABG, as needed continue AAI pacing at [address] Juan and Dr. Calderon This patient remains critically ill with one or more organ systems which are or may become a threat to life. I have spent in excess of 40 minutes discontinuously in the care and management of this patient. This time is exclusive of procedures, and includes, but is not limited to, evaluation of the patient, review of the medical record, discussions with family, consultants, nursing staff, or respiratory therapy, and documentation in the medical record. Vinay Ramírez MD May 19, 2017 07:34
[2017-05-19] MEDS ORDERED: FUROSEMIDE 40 MG/4 ML VIAL ONE (07:41)
[2017-05-19] MEDS ORDERED: ALBUMIN 25% INJ 100 ML IV ONE (07:45)
[2017-05-19] MEDS ORDERED: FUROSEMIDE 40 MG/4 ML VIAL IV PUSH ONE (07:45)
[2017-05-19] MEDS: METOCLOPRAMIDE HCL 10 MG/2 ML VIAL IV PUSH SCH ×4 (08:00→20:50)
[2017-05-19] MEDS ORDERED: SOD PHOSPHATE/SOD BIPHOSPHATE (ADULT) ENEMA 133ML RECTAL PRN (09:15)
[2017-05-19] MEDS ORDERED: DEXTROSE 50% IN WATER 50 ML VIAL(D50) IV PUSH PRN (09:15)
[2017-05-19] MEDS ORDERED: BISACODYL 10 MG SUPP RECTAL PRN (09:15)
[2017-05-19] MEDS ORDERED: GLUCAGON 1 MG/ML VIAL OTHER PRN (09:15)
[2017-05-19] MEDS: SODIUM CHLORIDE 0.9% FLUSH 10 ML FLUSH IV FLUSH SCH ×2 (09:53→20:49)
[2017-05-19] MEDS: INSULIN ASPART SUPPLEMENTAL SCALE SQ SCH ×4 (10:00→22:00)
[2017-05-19] MEDS: PANTOPRAZOLE SOD 20 MG DELAYED RELEASE TAB PO SCH (10:41)
[2017-05-19] MEDS: ASPIRIN 81 MG CHEW TAB PO SCH (10:41)
--- NOTE | 2017-05-19 10:43 | PD.CAR.PN ---
CVT Progress Note Subjective/Hospital Course: 77-year-old patient of Dr. Brandon Cuellar, Dr. Aniket Clifton, Dr. Guzman in hematology [facility] and also roller leveler, Dr. Marcelo. History of coronary artery disease, recently had been complaining of some lower extremity edema for about 4 weeks He went on a cruise 2 weeks ago and had some more noticeable lower extremity edema. He states that he was monitoring his sodium intake without much improvement. He just returned from his cruise. He went to see Dr. Lizama his washer hand who sent him over to the emergency department for further evaluation. He has also noticed some increased shortness of breath with minimal exertion and has been using his inhaler more. He denied having any chest pain, no orthopnea, no paroxysmal nocturnal dyspnea. In the emergency department his troponins were elevated at 9.72, his BNP was 1708, his creatinine was 2.07 and his baseline is 1.7 to 1.9. He was started on a heparin drip and was aggressively diuresed. He underwent cardiac cath today which showed ejection fraction of 35-40%, proximal LAD had a 20% stenosis, the mid distal LAD 90% stenosis, circumflex 99% stenosis, the ramus is 95% stenosed. He also underwent a 2-D echocardiogram which showed an EF of 45%, mild aortic regurgitation, moderate mitral valve regurgitation, the left atrium was mild to moderately dilated, there was also mild concentric left ventricular hypertrophy. We were consulted to evaluate for coronary artery bypass grafting. PAST MEDICAL HISTORY: Coronary artery disease, Hyperlipidemia, COPD on nebulizers at home, Chronic kidney disease, stage III with baseline of 1.7, He was incidentally found to have multiple myeloma when undergoing evaluation for neuropathy and has been on oral immunosuppressant Revlimid and is followed by Dr. Guzman at [facility] in [place]. OTHER PAST MEDICAL HISTORY: Obstructive sleep apnea on a C-PAP machine, Hypertension, Mild aortic stenosis, Moderate mitral valve regurgitation, Iron deficiency anemia, History of prostate cancer. PAST SURGICAL HISTORY: Cardiac cath in 1991 where he had two arthrectomies at that time. He was preceded by a myocardial infarction, He has had a AAA repair with endograft repair, [place] device in April of 2009, prostatectomy with radiation and Lupron therapy. 05/15 pt remains pain free, still feels a little SOB with exertion , mild productive cough , will recheck CXR tentatively scheduled for surgery on Thursday continue BB, ASA statin on Heparin gtt 05/18/ surgery: CABG x 4, HEAD to LAD, SVG to OM, SVG to D1, SVG to RCA, EVH (R and L) , HEYDI extubated after surgery , acutely unresponsive, hypoxic, cyanotic, bradycardic, immediately reintubated by Dr New CCM given amp Epi , per Dr New's note : The patient was then AI paced at 80. bedside critical care ultrasound which did demonstrate a small posterior pericardial effusion isolated to be around the posterior wall of the left ventricle. There was no evidence of effusion around the atria or the right ventricle and no evidence of temporal physiology echocardiographically. His LV demonstrated grossly preserved function without evidence of regional wall motion abnormalities. +3700cc crystalloid, 4 units PRBC, one unit PLT, EBL 1500cc 05/19 pt was extubated this am to 3 liter nasal cannula weaning off Epi gtt, off insulin gtt will keep in CVICU, re-eval later today , backup pacer at 60 AI intrinsic rate 63 NSR awake , sleepy follows commands, speech appropriate weight + 7kg, gently diuresed Objective: GENERAL: awake, sleepy, follows commands SKIN: Warm and dry. prevena dressing to chest , shelley wraps to both legs HEAD: Atraumatic. Normocephalic. EYES: Pupils equal and round. No scleral icterus. No injection or drainage. / some scleral edema ENT: No nasal bleeding or discharge. Mucous membranes pink and moist. NECK: Trachea midline. No JVD. CARDIOVASCULAR: Regular rate and rhythm., sinus rhythm> sinus lindy RESPIRATORY: No accessory muscle use. Clear to auscultation. Breath sounds equal bilaterally. diminished in bases, chest tube to wall suction , drained 150cc/ 12 hrs GASTROINTESTINAL: Abdomen soft, non-tender, nondistended. MUSCULOSKELETAL: Extremities without clubbing, cyanosis, or trace edema No obvious deformities. NEUROLOGICAL: Awake and alert. No obvious cranial nerve deficits. Motor grossly within normal limits. Five out of 5 muscle strength in the arms and legs. Normal speech. PSYCHIATRIC: Appropriate mood and affect; insight and judgment normal. Vital Signs Date Time Temp Pulse Resp B/P (MAP) Pulse Ox O2 Delivery O2 Flow Rate FiO2 05/19/17 09:10 64 05/19/17 08:25 98 Nasal Cannula 3.00 05/19/17 08:25 98 Nasal Cannula 3 05/19/17 07:41 40 05/19/17 07:35 99 40 05/19/17 07:23 97.9 05/19/17 07:00 40 05/19/17 07:00 97.9 70 16 162/64 (96) 99 125/66 (85) 05/19/17 07:00 99 Mechanical Ventilator 40 05/19/17 07:00 70 05/19/17 07:00 70 05/19/17 06:50 60 105/42 05/19/17 03:16 54 117/51 05/19/17 03:15 98 Mechanical Ventilator 40 05/19/17 03:15 40 05/19/17 03:15 53 05/19/17 03:00 97.8 53 14 102/52 (69) 98 102/49 (66) 05/19/17 03:00 69 05/19/17 02:52 98 40 05/19/17 00:34 54 95/55 05/19/17 00:05 52 108/50 05/18/17 23:55 98 40 05/18/17 23:18 99 Mechanical Ventilator 40 05/18/17 23:18 56 05/18/17 23:18 40 05/18/17 23:17 97.3 56 14 119/64 (82) 99 111/51 (71) 05/18/17 23:10 58 124/54 05/18/17 23:00 56 05/18/17 20:00 96.9 79 14 100/69 (79) 99 111/59 (76) 05/18/17 19:45 99 40 05/18/17 19:30 40 05/18/17 19:30 79 05/18/17 19:30 99 Mechanical Ventilator 40 05/18/17 19:00 81 05/18/17 18:00 87 111/62 05/18/17 18:00 78 05/18/17 17:45 55 82/52 05/18/17 17:00 78 05/18/17 17:00 40 05/18/17 16:45 97.0 05/18/17 16:43 99 40 05/18/17 16:13 95 40 05/18/17 16:10 99 Nasal Cannula 4 05/18/17 15:26 98 40 05/18/17 15:00 78 05/18/17 15:00 97.0 76 10 91/53 (66) 97 96/57 (70) 05/18/17 15:00 50 05/18/17 15:00 81 05/18/17 15:00 97 Mechanical Ventilator 50 05/18/17 14:15 97.0 05/18/17 14:04 97 50 Labs: Laboratory Tests Test 05/19/17 03:00 White Blood Count 12.5 TH/MM3 (4.0-11.0) Red Blood Count 3.32 MIL/MM3 (4.50-5.90) Hemoglobin 9.8 GM/DL (13.0-17.0) Hematocrit 28.1 % (39.0-51.0) Mean Corpuscular Volume 84.6 FL (80.0-100.0) Mean Corpuscular Hemoglobin 29.6 PG (27.0-34.0) Mean Corpuscular Hemoglobin Concent 35.0 % (32.0-36.0) Red Cell Distribution Width 16.1 % (11.6-17.2) Platelet Count 248 TH/MM3 (150-450) Mean Platelet Volume 9.0 FL (7.0-11.0) Blood Urea Nitrogen 39 MG/DL (7-18) Creatinine 2.27 MG/DL (0.60-1.30) Random Glucose 138 MG/DL (74-106) Calcium Level 8.6 MG/DL (8.5-10.1) Phosphorus Level 4.3 MG/DL (2.5-4.9) Magnesium Level 3.7 MG/DL (1.5-2.5) Sodium Level 145 MEQ/L (136-145) Potassium Level 4.4 MEQ/L (3.5-5.1) Chloride Level 112 MEQ/L (98-107) Carbon Dioxide Level 22.3 MEQ/L (21.0-32.0) Anion Gap 11 MEQ/L (5-15) Estimat Glomerular Filtration Rate 28 ML/MIN (>89) Result Diagram: 05/19/17 0300 05/19/17 0300 Telemetry: sinus lindy > NSR (1) Non-STEMI (non-ST elevated myocardial infarction) (2) New onset of congestive heart failure Plan: EF 35% gentle diuresis , eval for shelley creatinine stabilized (3) S/P CABG x 4 Plan: on baby ASA, statin no BB with recent severe bradycardia continue backup pacer at 60 (4) Anemia Plan: received 4 units PRBC post surgery / one pack of plt / HGB 10.5 this am (5) CKD (chronic kidney disease) stage 3, GFR 30-59 ml/min Plan: creatinine 2.0 > 1.58 (6) Multiple myeloma, without mention of having achieved remission Plan: will need to discuss timing of when it is safe to resume home revlimid / for his Multiple myeloma (7) Postoperative respiratory failure Plan: reintubated yesterday immediately after extubation extubated this am to 3 liter nasal cannula will need aggressive pulm toileting wean 02 as tolerated Judith Gutierrez May 19, 2017 10:43
--- NOTE | 2017-05-19 10:46 | HHI.NPPN ---
Subjective History of Present Illness This patient is a 77-year-old male with a history of known chronic kidney disease stage III with a baseline creatinine level of approximately 1.7-1.9. Patient's initial chronic kidney disease was related to nephrosclerosis of hypertension but the patient subsequently developed marked proteinuria with development of a monoclonal gammopathy and was subsequently diagnosis having superimposed myeloma which is being managed by the hematology department at the [facility] in [place]. Patient has been on Revlimid. More recently patient's proteinuria has been improving. Patient subsequently presented to my office however yesterday complaining of increasing lower extremity edema with dyspnea. Renal labs were pending at the time of presentation to the office yesterday. There was a history of a echocardiogram at the [facility] indicating preserved ejection fraction. Because of the severity of the patient's fluid retention with respiratory insufficiency he was advised to be admitted to the hospital for further evaluation and apparently had evidence of acute myocardial injury with elevated troponin levels. Patient denied any chest pain at time of presentation. He does have a history however of aphthous chronic heart disease as well as an abdominal aortic aneurysm. Also previous history of AAA repair. Interval History s/p 4 vessel bypass 05/18 Received 4U PRBCs and 1U on platelets during procedure Was extubated post-procedural, but emergently reintubated about 5 mins later 2/ 2 to respiratory failure and bradycardia. Was on Epinephrine overnight for hypotension that is being weaned today (down to 2mcg) successfully. Is being externally paced at the present given persistent bradycardia.. UOP initially marginal at 10-15cc/hr, but improved this AM s/p administration of IV Lasix & Albumin (given at 0830 and out out 75cc when checked at approx 0930) Pt now extubated again as of 0800 05/19 and is responsive. Seen in CVICU. No family present. (Torrie Han) Review of Systems General Constitutional: Fatigue (Torrie Han) Cardiovascular Cardiac: Edema (Torrie Han) Objective Data Data Vital Signs Date Time Temp Pulse Resp B/P (MAP) Pulse Ox O2 Delivery O2 Flow Rate FiO2 05/19/17 09:10 64 05/19/17 08:25 98 Nasal Cannula 3.00 05/19/17 08:25 98 Nasal Cannula 3 05/19/17 07:41 40 05/19/17 07:35 99 40 05/19/17 07:23 97.9 05/19/17 07:00 40 05/19/17 07:00 97.9 70 16 162/64 (96) 99 125/66 (85) 05/19/17 07:00 99 Mechanical Ventilator 40 05/19/17 07:00 70 05/19/17 07:00 70 05/19/17 06:50 60 105/42 05/19/17 03:16 54 117/51 05/19/17 03:15 98 Mechanical Ventilator 40 05/19/17 03:15 40 05/19/17 03:15 53 05/19/17 03:00 97.8 53 14 102/52 (69) 98 102/49 (66) 05/19/17 03:00 69 05/19/17 02:52 98 40 05/19/17 00:34 54 95/55 05/19/17 00:05 52 108/50 05/18/17 23:55 98 40 05/18/17 23:18 99 Mechanical Ventilator 40 05/18/17 23:18 56 05/18/17 23:18 40 05/18/17 23:17 97.3 56 14 119/64 (82) 99 111/51 (71) 05/18/17 23:10 58 124/54 05/18/17 23:00 56 05/18/17 20:00 96.9 79 14 100/69 (79) 99 111/59 (76) 05/18/17 19:45 99 40 05/18/17 19:30 40 05/18/17 19:30 79 05/18/17 19:30 99 Mechanical Ventilator 40 05/18/17 19:00 81 05/18/17 18:00 87 111/62 05/18/17 18:00 78 05/18/17 17:45 55 82/52 05/18/17 17:00 78 05/18/17 17:00 40 05/18/17 16:45 97.0 05/18/17 16:43 99 40 05/18/17 16:13 95 40 05/18/17 16:10 99 Nasal Cannula 4 05/18/17 15:26 98 40 05/18/17 15:00 78 05/18/17 15:00 97.0 76 10 91/53 (66) 97 96/57 (70) 05/18/17 15:00 50 05/18/17 15:00 81 05/18/17 15:00 97 Mechanical Ventilator 50 05/18/17 14:15 97.0 05/18/17 14:04 97 50 (Torrie Han) -: 05/19/17 0300 05/19/17 0300 Imaging Last Impressions Chest X-Ray 05/19/17 0500 Signed Impressions: Service Date/Time: Friday, May 19, 2017 04:35 - CONCLUSION: Consolidation or atelectasis at the bases being worse on the left. This is unchanged from the prior exam. Darrell Melendez MD Lower Extremity Ultrasound 05/14/17 0000 Signed Impressions: Service Date/Time: May 15:27 - CONCLUSION: 1. Lower extremity venous mapping, as above. Raymond Islas MD Carotid Artery Ultrasound 05/14/17 0000 Signed Impressions: Service Date/Time: May 15:42 - CONCLUSION: 1. No significant carotid flow limiting stenosis. 2. Antegrade vertebral artery flow bilaterally. Raymond Islas MD Medication Review Current Medications Medications (Trade) Dose Ordered Sig/Elio Route Start Time Stop Time Status Last Admin (Narcan Inj) 0.4 mg UNSCH PRN IV PUSH 05/12/17 20:30 Patient Own Medication PT OWN MED: Lenalidomide (Revlim... 3 weeks on 1 week of PO 05/12/17 23:00 Future Hold (Protonix) 20 mg DAILY PO 05/13/17 09:00 05/17/17 09:35 (Lipitor) 40 mg HS PO 05/13/17 21:00 05/17/17 22:40 Lactated Ringer's 1,000 ml @ 30 mls/hr Q24H PRN IV 05/17/17 23:45 05/20/17 23:44 (Betadine 5% Antisepsis Kit) 1 applic CARROT HARVESTER PRN EACH NARE 05/17/17 23:45 05/20/17 23:44 (NS Flush) 2 ml BID IV FLUSH 05/18/17 21:00 05/19/17 09:53 (NS Flush) 2 ml UNSCH PRN IV FLUSH 05/18/17 13:30 Albumin Human 250 ml @ 250 mls/hr UNSCH PRN IV 05/18/17 13:30 05/18/17 21:23 Cefazolin Sodium 1000 mg/Sodium Chloride 100 ml @ 200 mls/hr Q8H IV 05/18/17 20:00 05/20/17 04:29 05/19/17 04:20 (Aspirin Chew) 81 mg DAILY PO 05/19/17 09:00 (Reglan Inj) 5 mg ACHS IV PUSH 05/18/17 17:00 05/19/17 08:00 (Tylenol) 650 mg Q4H PRN PO 05/18/17 13:30 (Percocet 5-325 Mg) 1 tab Q3H PRN PO 05/18/17 13:30 (Zofran Inj) 4 mg Q6H PRN IV PUSH 05/18/17 13:30 (Apresoline Inj) 10 mg Q4H PRN IV PUSH 05/18/17 13:30 (Lopressor Inj) 2.5 mg Q1H PRN IV PUSH 05/18/17 13:30 Potassium Chloride 100 ml @ 50 mls/hr UNSCH PRN IV 05/18/17 13:30 Potassium Chloride 100 ml @ 50 mls/hr UNSCH PRN IV 05/18/17 13:30 Magnesium Sulfate 2 gm/Sodium Chloride 104 ml @ 100 mls/hr UNSCH PRN IV 05/18/17 13:30 Magnesium Sulfate 2 gm/Sodium Chloride 104 ml @ 50 mls/hr UNSCH PRN IV 05/18/17 13:30 (D50w (Vial) Inj) 50 ml UNSCH PRN IV PUSH 05/18/17 13:30 (Duoneb Neb) 1 ampule Q2HR NEB PRN NEB 05/18/17 13:30 Epinephrine HCl 2 mg/Dextrose 252 ml @ 30.24 mls/ hr TITRATE PRN IV 05/18/17 17:45 05/19/17 06:50 (Duoneb Neb) 1 ampule Q6HR WHILE AWAKE NEB NEB 05/19/17 14:00 05/21/17 13:59 (Colace) 100 mg BID PO 05/19/17 21:00 (Theragran M Tab) 1 tab DAILY PO 05/20/17 09:00 (Milk Of Magnesia Liq) 30 ml DAILY PO 05/20/17 09:00 (Dulcolax Supp) 10 mg UNSCH PRN RECTAL 05/19/17 09:15 (Miralax) 17 gm DAILY PO 05/20/17 09:00 (Senokot) 8.6 mg HS PO 05/19/17 21:00 (Fleets Enema (Adult)) 118 ml UNSCH PRN RECTAL 05/19/17 09:15 (NovoLOG SUPPLEMENTAL SCALE) 1 02,06,10,14,18,22 SQ 05/19/17 10:00 05/20/17 09:59 (D50w (Vial) Inj) 50 ml UNSCH PRN IV PUSH 05/19/17 09:15 (Glucagon Inj) 1 mg UNSCH PRN OTHER 05/19/17 09:15 (NovoLOG SUPPLEMENTAL SCALE) 1 ACHS SQ 05/20/17 12:00 (Torrie Han) Physical Exam General Appearance: No Acute Distress (Torrie Han) Neck Neck Exam: Neck Supple, Trachea Midline (Torrie Han) Pulmonary Resp Exam: Clear Bilaterally, Breath Sounds Equal (Torrie aHn) Cardiology CV Exam: Regular, Normal Sinus Rhythm CV Remarks externally paced. Bandaging covering sternum from recent CABG. Chest tube present with serosanguineous discharge (Torrie Han) Gastrointestinal/Abdomen GI Exam: Soft, Non-Tender (Torrie Han) Integumentary Skin Exam: Clear, Warm (Torrie Han) Extremeties Extremities Exam: Trace Edema (bilat UEs & bipedal. LEs wrapped in ERWIN from recent vein harvesting) (Torrie Han) Neurologic Neuro Exam: Alert, Awake (Torrie Han) Psychiatric Psych Exam: Appropriate Responses (Torrie Han) Assessment/Plan Discussed Condition With: Patient Problem List: (1) CKD (chronic kidney disease) stage 3, GFR 30-59 ml/min ICD Codes: N18.3 - Chronic kidney disease, stage 3 (moderate) Status: Chronic Plan: s/p 4 vessel CABG 05/18 SCr raphael overnight to 2.27 and eGFR of 28 which is not surprising given his surgery and post-surgery bradycardia. UOP has improved as of this morning. We will continue to monitor for any signs of ATN. May need additional diuresis in the AM Medications should be adjusted for the patient's estimated GFR if clinically indicated. Avoid agents with significant potential for nephrotoxicity possible including NSAIDs for analgesia, iodine contrast agents. Gadolinium is contraindicated if the GFR is below 30. (2) Non-STEMI (non-ST elevated myocardial infarction) ICD Codes: I21.4 - Non-ST elevation (NSTEMI) myocardial infarction Status: Acute Plan: s/p cardiac cath 05/14/17 & 4 vessel CABG 05/18/17: HEAD to LAD, SVG to OM , SVG to D1, SVG to RCA Left anterior descending artery has a proximal 20-30% stenosis and a 99% stenosis of the LAD. The circumflex is subtotally occluded and goes on to give a large marginal. The right coronary artery is 90% occluded. Left ventriculogram performed in the standard ÁLVAREZ projection reveals an ejection fraction of 35-40%. Based on the patient's risk factors and current renal function I indicated to him his estimated risk for requiring dialysis post CABG is approximately 7.1% and he indicated to me that he accepts this risk and wishes to proceed with surgery and is clear from a renal point of view as such. (3) Anemia ICD Codes: D64.9 - Anemia, unspecified Status: Chronic Plan: Likely related to a combination of his chronic kidney disease and multiple myeloma. Parental iron as ordered. Would defer to hematology/oncology in regard to possible erythropoietin replacement therapy in view of his history of multiple myeloma. (4) New onset of congestive heart failure ICD Codes: I50.9 - Heart failure, unspecified Status: Acute Plan: s/p Lasix this AM. May need additional diuresis in the AM EF as per cardiac cath: 35-40% (5) Multiple myeloma, without mention of having achieved remission ICD Codes: C90.00 - Multiple myeloma not having achieved remission Status: Chronic (Torrie Han) Plan The exam, history, and the medical decision-making described in the above note were completed with the assistance of the MEI. I reviewed and agree with the findings presented. I attest that I had a deot-im-eyje encounter with the patient on the same day, and personally performed and documented my assessment and findings in the medical record. Patient's urine output has improved post diuretic administration. Continue to monitor renal indices. Hopefully a significant ATN has not occurred. by bedside. (Deedee Lizama MD) Torrie Han May 19, 2017 10:46 Deedee Lizama MD May 19, 2017 14:45
[2017-05-19] MEDS: oxyCODONE/ACETAMINOPHEN 5 MG/325 MG TAB PO PRN ×2 (15:51→20:50)
[2017-05-19 17:30] LABS: ALBUMIN 2.8 GM/DL (3.4-5.0); ALT (GPT) 12 U/L (12-78); AST (GOT) 19 U/L (15-37); BICARBONATE 25.7 MEQ/L (21.0-32.0); BLOOD UREA NITROGEN 48 MG/DL (7-18); CALCIUM 8.2 MG/DL (8.5-10.1); CHLORIDE 110 MEQ/L (98-107); CREATININE 2.46 MG/DL (0.60-1.30); GLOMERULAR FILTRATION RATE 26 ML/MIN (>89); GLUCOSE,RANDOM 133 MG/DL (74-106); MAGNESIUM 3.3 MG/DL (1.5-2.5); SODIUM (NA) 143 MEQ/L (136-145)
[2017-05-19 17:33] LABS: ALKALINE PHOSPHATASE 39 U/L (45-117); TOTAL BILIRUBIN ADULT 0.4 MG/DL (0.2-1.0); TOTAL PROTEIN 5.3 GM/DL (6.4-8.2)
--- NOTE | 2017-05-19 19:06 | EKG ---
Date Performed: 05/19/2017 Time Performed: 03:49:40 PTAGE: 77 years EKG: Sinus bradycardia with PAC(s). Prolonged QT interval Inferior infarct - age undetermined An terolateral T wave changes may be due to myocardial ischemia Low QRS voltages in precordial leads Suzan ctric spikes without associated activity that are probably Artifact, but can not exclude failure to c apture a pacemaker. When compared to previous tracing, there is less widening of the QRS complex, byt the QT prolongation is new. The electric spikes that again may represent artifact are new, but Clini catracho corrolation is advised. Abnormal ECG PREVIOUS TRACING : 05/13/2017 04.53 DOCTOR: Jasmin Moffett Interpretating Date/Time 05/19/2017 19:05:02
[2017-05-19] MEDS: ATORVASTATIN 40 MG TAB PO SCH (20:49)
[2017-05-19] MEDS: DOCUSATE SODIUM 100 MG CAP PO SCH (20:50)
[2017-05-19] MEDS: SENNOSIDES 8.6 MG TAB PO SCH (20:50)
[2017-05-20] VITALS (34 sets, daily range): BP systolic 109–147; BP diastolic 52–70; PULSE 63–100; RESP 16–20; TEMP 98.2–99.4; O2SAT 94–100
[2017-05-20] MEDS: INSULIN ASPART SUPPLEMENTAL SCALE SQ SCH ×5 (02:00→23:05)
[2017-05-20] MEDS: oxyCODONE/ACETAMINOPHEN 5 MG/325 MG TAB PO PRN ×2 (02:26→09:45)
[2017-05-20 05:29] LABS: AUTOMATED NEUTROPHIL # 5.6 TH/MM3 (1.8-7.7); BASOPHIL % 0.4 % (0.0-2.0); HEMOGLOBIN 7.6 GM/DL (13.0-17.0); LYMPH % 19.8 % (9.0-44.0); LYMPHOCYTE # 1.6 TH/MM3 (1.0-4.8); MEAN CELL VOLUME 85.9 FL (80.0-100.0); MEAN CORPUSCULAR HEMOGLOBIN 29.5 PG (27.0-34.0); MEAN CORPUSCULAR HGB CONC 34.3 % (32.0-36.0); MEAN PLATELET VOLUME 9.3 FL (7.0-11.0); MONO % 10.6 % (0.0-8.0); MONOCYTE # 0.9 TH/MM3 (0-0.9); NEUT % 69.2 % (16.0-70.0); PLATELET COUNT 153 TH/MM3 (150-450); RED BLOOD COUNT 2.57 MIL/MM3 (4.50-5.90); RED CELL DISTRIBUTION WIDTH 16.6 % (11.6-17.2); WHITE BLOOD COUNT 8.1 TH/MM3 (4.0-11.0)
[2017-05-20 05:51] LABS: ALBUMIN 2.6 GM/DL (3.4-5.0); BICARBONATE 26.3 MEQ/L (21.0-32.0); CALCIUM 8.2 MG/DL (8.5-10.1); CREATININE 2.19 MG/DL (0.60-1.30); PHOSPHORUS 4.7 MG/DL (2.5-4.9)
[2017-05-20] MEDS ORDERED: FUROSEMIDE 40 MG/4 ML VIAL IV PUSH PRN (06:45)
[2017-05-20 06:56] LABS: TOTAL PROTEIN 5.2 GM/DL (6.4-8.2)
[2017-05-20] MEDS: RESP: ALBUTEROL 2.5 MG/IPRATROPIUM 0.5 MG NEB (SCH) NEB (07:41)
[2017-05-20] MEDS ORDERED: MAGNESIUM HYDROXIDE SUSP 30 ML CUP PO SCH (09:00)
--- NOTE | 2017-05-20 09:25 | RSPPFT ---
DATE OF PROCEDURE: 05/15/17 COMMENTS: Spirometry with FVC of 1.6, FEV1 of 0.9, FEV1/FVC ratio at 66%. Post-bronchodilator study was not performed. IMPRESSION: 1. Moderately severe airways obstruction.
[2017-05-20] MEDS: POLYETHYLENE GLYCOL 17 GM PKG PO SCH (09:43)
[2017-05-20] MEDS: SODIUM CHLORIDE 0.9% FLUSH 10 ML FLUSH IV FLUSH SCH ×2 (09:44→20:55)
[2017-05-20] MEDS: ASPIRIN 81 MG CHEW TAB PO SCH (09:44)
[2017-05-20] MEDS: PANTOPRAZOLE SOD 20 MG DELAYED RELEASE TAB PO SCH (09:44)
[2017-05-20] MEDS: DOCUSATE SODIUM 100 MG CAP PO SCH ×2 (09:44→20:56)
[2017-05-20] MEDS: MULTIVITAMINS/MINERALS THERAPEUTIC TAB PO SCH (09:44)
[2017-05-20] MEDS: METOCLOPRAMIDE HCL 10 MG/2 ML VIAL IV PUSH SCH ×4 (09:44→20:55)
--- NOTE | 2017-05-20 13:11 | PD.CAR.PN ---
CVT Progress Note Subjective/Hospital Course: 77-year-old patient of Dr. Brandon Cuellar, Dr. Aniket Clifton, Dr. 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 Marcelo. History of coronary artery disease, recently had been complaining of some lower extremity edema for about 4 weeks He went on a cruise 2 weeks ago and had some more noticeable lower extremity edema. He states that he was monitoring his sodium intake without much improvement. He just returned from his cruise. He went to see Dr. Lizama his insurance marketing rep who sent him over to the emergency department for further evaluation. He has also noticed some increased shortness of breath with minimal exertion and has been using his inhaler more. He denied having any chest pain, no orthopnea, no paroxysmal nocturnal dyspnea. In the emergency department his troponins were elevated at 9.72, his BNP was 1708, his creatinine was 2.07 and his baseline is 1.7 to 1.9. He was started on a heparin drip and was aggressively diuresed. He underwent cardiac cath today which showed ejection fraction of 35-40%, proximal LAD had a 20% stenosis, the mid distal LAD 90% stenosis, circumflex 99% stenosis, the ramus is 95% stenosed. He also underwent a 2-D echocardiogram which showed an EF of 45%, mild aortic regurgitation, moderate mitral valve regurgitation, the left atrium was mild to moderately dilated, there was also mild concentric left ventricular hypertrophy. We were consulted to evaluate for coronary artery bypass grafting. PAST MEDICAL HISTORY: Coronary artery disease, Hyperlipidemia, COPD on nebulizers at home, Chronic kidney disease, stage III with baseline of 1.7, He was incidentally found to have multiple myeloma when undergoing evaluation for neuropathy and has been on oral immunosuppressant Revlimid and is followed by Dr. Guzman at [place] in [place]. OTHER PAST MEDICAL HISTORY: Obstructive sleep apnea on a C-PAP machine, Hypertension, Mild aortic stenosis, Moderate mitral valve regurgitation, Iron deficiency anemia, History of prostate cancer. PAST SURGICAL HISTORY: Cardiac cath in 1991 where he had two arthrectomies at that time. He was preceded by a myocardial infarction, He has had a AAA repair with endograft repair, [place] device in April of 2009, prostatectomy with radiation and Lupron therapy. 05/15 pt remains pain free, still feels a little SOB with exertion , mild productive cough , will recheck CXR tentatively scheduled for surgery on Thursday continue BB, ASA statin on Heparin gtt 05/18/ surgery: CABG x 4, HEAD to LAD, SVG to OM, SVG to D1, SVG to RCA, EVH (R and L) , HEYDI extubated after surgery , acutely unresponsive, hypoxic, cyanotic, bradycardic, immediately reintubated by Dr New CCM given amp Epi , per Dr New's note : The patient was then AI paced at 80. bedside critical care ultrasound which did demonstrate a small posterior pericardial effusion isolated to be around the posterior wall of the left ventricle. There was no evidence of effusion around the atria or the right ventricle and no evidence of temporal physiology echocardiographically. His LV demonstrated grossly preserved function without evidence of regional wall motion abnormalities. +3700cc crystalloid, 4 units PRBC, one unit PLT, EBL 1500cc 05/19 pt was extubated this am to 3 liter nasal cannula weaning off Epi gtt, off insulin gtt will keep in CVICU, re-eval later today , backup pacer at 60 AI intrinsic rate 63 NSR awake , sleepy follows commands, speech appropriate weight + 7kg, gently diuresed 05/20 creatinine improving 2.17 chest drained 140cc/ in 12 hrs / eval for removal in am backup pacer to 40/ eval for removal later today HR 65-70, for one unit PRBC today / then gentle diuresis decrease narcotics, pt sleepy and mild confusion Objective: GENERAL: sleepy, mild confusion SKIN: Warm and dry. prevena to chest incisions intact , right and left leg HEAD: Normocephalic. EYES: No scleral icterus. No injection or drainage. NECK: Supple, trachea midline. No JVD or lymphadenopathy. CARDIOVASCULAR: Regular rate and rhythm without murmurs, gallops, or rubs. mild edema RESPIRATORY: Breath sounds equal bilaterally. No accessory muscle use. chest tube drained 140cc / 12 hrs no air leak GASTROINTESTINAL: Abdomen soft, non-tender, nondistended. MUSCULOSKELETAL: No cyanosis, or edema. BACK: Nontender without obvious deformity. No CVA tenderness. Vital Signs Date Time Temp Pulse Resp B/P (MAP) Pulse Ox O2 Delivery O2 Flow Rate FiO2 05/20/17 12:45 98.4 73 17 133/60 97 1/17/18 12:35 66 18 119/57 94 18 12:15 98.6 66 19 121/56 100 05/20/17 12:03 98.8 68 19 118/57 100 05/20/17 12:00 72 05/20/17 11:54 98.4 63 20 112/56 97 05/20/17 11:00 99.1 67 20 109/52 (71) 97 05/20/17 11:00 71 05/20/17 11:00 97 Nasal Cannula 2.00 05/20/17 10:50 18 05/20/17 10:00 77 05/20/17 09:00 78 05/20/17 08:00 81 05/20/17 07:42 98 Nasal Cannula 2.00 05/20/17 07:15 99.0 79 19 123/67 (85) 97 05/20/17 07:15 97 Nasal Cannula 2.00 05/20/17 07:15 100 05/20/17 06:00 77 05/20/17 05:00 78 05/20/17 04:00 81 05/20/17 03:45 97 Nasal Cannula 2.00 05/20/17 03:45 99.4 81 16 144/70 (94) 97 05/20/17 03:00 85 05/20/17 02:00 138/64 (88) 05/20/17 02:00 94 05/20/17 01:00 86 05/20/17 00:00 80 05/19/17 23:00 80 05/19/17 23:00 97 Nasal Cannula 2.00 05/19/17 23:00 99.1 78 16 121/56 (77) 97 18 22:00 74 18 21:00 76 18 20:41 93 Nasal Cannula 2.50 05/19/17 20:00 74 05/19/17 20:00 98.8 72 16 122/63 (82) 99 05/19/17 20:00 99 Nasal Cannula 3.00 18 19:00 70 18 18:00 72 18 17:00 76 18 16:00 70 18 15:30 98 Nasal Cannula 3.00 05/19/17 15:28 66 05/19/17 15:27 98.2 62 15 116/56 (76) 98 Arterial Line 05/19/17 15:10 100 Nasal Cannula 3.00 05/19/17 15:00 60 Labs: Laboratory Tests Test 05/20/17 04:20 White Blood Count 8.1 TH/MM3 (4.0-11.0) Red Blood Count 2.57 MIL/MM3 (4.50-5.90) Hemoglobin 7.6 GM/DL (13.0-17.0) Hematocrit 22.0 % (39.0-51.0) Mean Corpuscular Volume 85.9 FL (80.0-100.0) Mean Corpuscular Hemoglobin 29.5 PG (27.0-34.0) Mean Corpuscular Hemoglobin Concent 34.3 % (32.0-36.0) Red Cell Distribution Width 16.6 % (11.6-17.2) Platelet Count 153 TH/MM3 (150-450) Mean Platelet Volume 9.3 FL (7.0-11.0) Neutrophils (%) (Auto) 69.2 % (16.0-70.0) Lymphocytes (%) (Auto) 19.8 % (9.0-44.0) Monocytes (%) (Auto) 10.6 % (0.0-8.0) Eosinophils (%) (Auto) 0.0 % (0.0-4.0) Basophils (%) (Auto) 0.4 % (0.0-2.0) Neutrophils # (Auto) 5.6 TH/MM3 (1.8-7.7) Lymphocytes # (Auto) 1.6 TH/MM3 (1.0-4.8) Monocytes # (Auto) 0.9 TH/MM3 (0-0.9) Eosinophils # (Auto) 0.0 TH/MM3 (0-0.4) Basophils # (Auto) 0.0 TH/MM3 (0-0.2) CBC Comment DIFF FINAL Differential Comment Blood Urea Nitrogen 44 MG/DL (7-18) Creatinine 2.19 MG/DL (0.60-1.30) Random Glucose 119 MG/DL (74-106) Total Protein 5.2 GM/DL (6.4-8.2) Albumin 2.6 GM/DL (3.4-5.0) Calcium Level 8.2 MG/DL (8.5-10.1) Phosphorus Level 4.7 MG/DL (2.5-4.9) Magnesium Level 3.0 MG/DL (1.5-2.5) Sodium Level 143 MEQ/L (136-145) Potassium Level 3.9 MEQ/L (3.5-5.1) Chloride Level 110 MEQ/L (98-107) Carbon Dioxide Level 26.3 MEQ/L (21.0-32.0) Anion Gap 7 MEQ/L (5-15) Estimat Glomerular Filtration Rate 29 ML/MIN (>89) Result Diagram: 05/20/1741905/20/17419 (1) Non-STEMI (non-ST elevated myocardial infarction) (2) New onset of congestive heart failure Plan: EF 35% gentle diuresis , no shelley with CKD/ CLEMENT (3) S/P CABG x 4 Plan: on baby ASA, statin no BB with recent severe bradycardia continue backup pacer at 40 rate improved (4) Anemia Plan: for one unit PRBC today (5) CKD (chronic kidney disease) stage 3, GFR 30-59 ml/min Plan: creatinine 2.0 > 1.58 > 2.17 (6) Multiple myeloma, without mention of having achieved remission Plan: will need to discuss timing of when it is safe to resume home revlimid / for his Multiple myeloma Judith Gutierrez May 20, 2017 13:11
[2017-05-20] MEDS: ACETAMINOPHEN/HYDROcodone 325 MG/5 MG TAB PO PRN (15:51)
--- NOTE | 2017-05-20 16:22 | HHI.NPPN ---
Subjective History of Present Illness This patient is a 77-year-old male with a history of known chronic kidney disease stage III with a baseline creatinine level of approximately 1.7-1.9. Patient's initial chronic kidney disease was related to nephrosclerosis of hypertension but the patient subsequently developed marked proteinuria with development of a monoclonal gammopathy and was subsequently diagnosis having superimposed myeloma which is being managed by the hematology department at the [facility] in [place]. Patient has been on Revlimid. More recently patient's proteinuria has been improving. Patient subsequently presented to my office however yesterday complaining of increasing lower extremity edema with dyspnea. Renal labs were pending at the time of presentation to the office yesterday. There was a history of a echocardiogram at the [facility] indicating preserved ejection fraction. Because of the severity of the patient's fluid retention with respiratory insufficiency he was advised to be admitted to the hospital for further evaluation and apparently had evidence of acute myocardial injury with elevated troponin levels. Patient denied any chest pain at time of presentation. He does have a history however of aphthous chronic heart disease as well as an abdominal aortic aneurysm. Also previous history of AAA repair. Interval History Patient complaining of incisional pain. Otherwise no other complaints. Review of Systems General Constitutional: Fatigue Cardiovascular Cardiac: Edema Objective Data Data 05/20/17 05/21/17 19:00 07:00 Intake Total 420 ml Balance 420 ml Packed Cells 400 ml Blood Product IV Normal Saline Flush 20 ml Vital Signs Date Time Temp Pulse Resp B/P (MAP) Pulse Ox O2 Delivery O2 Flow Rate FiO2 05/20/17 16:03 17 05/20/17 16:00 80 05/20/17 15:38 99.0 80 19 134/62 (86) 95 05/20/17 15:00 100 Nasal Cannula 2.00 05/20/17 15:00 98.3 77 19 147/62 (90) 100 05/20/17 15:00 84 05/20/17 14:05 72 05/20/17 13:00 70 05/20/17 12:45 98.4 73 17 133/60 97 05/20/17 12:35 66 18 119/57 94 05/20/17 12:15 98.6 66 19 121/56 100 05/20/17 12:03 98.8 68 19 118/57 100 05/20/17 12:00 72 05/20/17 11:54 98.4 63 20 112/56 97 05/20/17 11:00 99.1 67 20 109/52 (71) 97 05/20/17 11:00 71 05/20/17 11:00 97 Nasal Cannula 2.00 05/20/17 10:50 18 05/20/17 10:00 77 05/20/17 09:00 78 05/20/17 08:00 81 05/20/17 07:42 98 Nasal Cannula 2.00 05/20/17 07:15 99.0 79 19 123/67 (85) 97 05/20/17 07:15 97 Nasal Cannula 2.00 05/20/17 07:15 100 05/20/17 06:00 77 05/20/17 05:00 78 05/20/17 04:00 81 05/20/17 03:45 97 Nasal Cannula 2.00 05/20/17 03:45 99.4 81 16 144/70 (94) 97 05/20/17 03:00 85 05/20/17 02:00 138/64 (88) 05/20/17 02:00 94 05/20/17 01:00 86 05/20/17 00:00 80 05/19/17 23:00 80 05/19/17 23:00 97 Nasal Cannula 2.00 05/19/17 23:00 99.1 78 16 121/56 (77) 97 05/19/17 22:00 74 05/19/17 21:00 76 05/19/17 20:41 93 Nasal Cannula 2.50 05/19/17 20:00 74 05/19/17 20:00 98.8 72 16 122/63 (82) 99 05/19/17 20:00 99 Nasal Cannula 3.00 05/19/17 19:00 70 05/19/17 18:00 72 05/19/17 17:00 76 -: 05/20/17 0420 05/20/17 0420 Physical Exam General Appearance: No Acute Distress Neck Neck Exam: Neck Supple, Trachea Midline Pulmonary Resp Exam: Clear Bilaterally, Breath Sounds Equal Cardiology CV Exam: Regular, Normal Sinus Rhythm Gastrointestinal/Abdomen GI Exam: Soft, Non-Tender Integumentary Skin Exam: Clear, Warm Extremeties Extremities Exam: Trace Edema (upper extremities, no edema lower extremities.) Neurologic Neuro Exam: Alert, Awake Psychiatric Psych Exam: Appropriate Responses Assessment/Plan Discussed Condition With: Patient Problem List: (1) CKD (chronic kidney disease) stage 3, GFR 30-59 ml/min ICD Codes: N18.3 - Chronic kidney disease, stage 3 (moderate) Status: Chronic Plan: s/p 4 vessel CABG 05/18 Patient's fluid retention and creatinine level have improved with good urinary output overnight. Continue to monitor volume status and creatinine level. Patient appears to be making good progress. Medications should be adjusted for the patient's estimated GFR if clinically indicated. Avoid agents with significant potential for nephrotoxicity possible including NSAIDs for analgesia, iodine contrast agents. Gadolinium is contraindicated if the GFR is below 30. (2) Non-STEMI (non-ST elevated myocardial infarction) ICD Codes: I21.4 - Non-ST elevation (NSTEMI) myocardial infarction Status: Acute Plan: s/p cardiac cath 05/14/17 & 4 vessel CABG 05/18/17: HEAD to LAD, SVG to OM , SVG to D1, SVG to RCA Left anterior descending artery has a proximal 20-30% stenosis and a 99% stenosis of the LAD. The circumflex is subtotally occluded and goes on to give a large marginal. The right coronary artery is 90% occluded. Left ventriculogram performed in the standard ÁLVAREZ projection reveals an ejection fraction of 35-40%. Based on the patient's risk factors and current renal function I indicated to him his estimated risk for requiring dialysis post CABG is approximately 7.1% and he indicated to me that he accepts this risk and wishes to proceed with surgery and is clear from a renal point of view as such. (3) Anemia ICD Codes: D64.9 - Anemia, unspecified Status: Chronic Plan: Likely related to a combination of his chronic kidney disease and multiple myeloma. Parental iron as ordered. Would defer to hematology/oncology in regard to possible erythropoietin replacement therapy in view of his history of multiple myeloma. (4) New onset of congestive heart failure ICD Codes: I50.9 - Heart failure, unspecified Status: Acute Plan: s/p Lasix this AM. May need additional diuresis in the AM EF as per cardiac cath: 35-40% (5) Multiple myeloma, without mention of having achieved remission ICD Codes: C90.00 - Multiple myeloma not having achieved remission Status: Chronic Deedee Lizama MD May 20, 2017:22
[2017-05-20] MEDS: ATORVASTATIN 40 MG TAB PO SCH (20:55)
[2017-05-20] MEDS: ACETAMINOPHEN 500 MG CPLT PO PRN (20:56)
[2017-05-20] MEDS: SENNOSIDES 8.6 MG TAB PO SCH (20:56)
[2017-05-20] MEDS: CARVEDILOL 3.125 MG TAB PO SCH (20:56)
[2017-05-21] VITALS (32 sets, daily range): BP systolic 131–145; BP diastolic 59–68; PULSE 58–85; RESP 16–18; TEMP 98–98.9; O2SAT 95–100
[2017-05-21 04:53] LABS: HEMATOCRIT 25.3 % (39.0-51.0); HEMOGLOBIN 8.7 GM/DL (13.0-17.0); MEAN CELL VOLUME 86.3 FL (80.0-100.0); MEAN CORPUSCULAR HEMOGLOBIN 29.6 PG (27.0-34.0); MEAN CORPUSCULAR HGB CONC 34.3 % (32.0-36.0); MEAN PLATELET VOLUME 8.4 FL (7.0-11.0); PLATELET COUNT 168 TH/MM3 (150-450); RED BLOOD COUNT 2.93 MIL/MM3 (4.50-5.90); RED CELL DISTRIBUTION WIDTH 15.8 % (11.6-17.2); WHITE BLOOD COUNT 8.7 TH/MM3 (4.0-11.0)
[2017-05-21 05:20] LABS: BICARBONATE 26.2 MEQ/L (21.0-32.0); CALCIUM 8.4 MG/DL (8.5-10.1); CREATININE 1.59 MG/DL (0.60-1.30)
[2017-05-21] MEDS: CARVEDILOL 3.125 MG TAB PO SCH ×2 (08:15→20:01)
[2017-05-21] MEDS: PANTOPRAZOLE SOD 20 MG DELAYED RELEASE TAB PO SCH (08:15)
[2017-05-21] MEDS: MULTIVITAMINS/MINERALS THERAPEUTIC TAB PO SCH (08:15)
[2017-05-21] MEDS: ASPIRIN 81 MG CHEW TAB PO SCH (08:15)
[2017-05-21] MEDS: DOCUSATE SODIUM 100 MG CAP PO SCH ×2 (08:16→20:00)
[2017-05-21] MEDS: METOCLOPRAMIDE HCL 10 MG/2 ML VIAL IV PUSH SCH ×2 (08:16→14:07)
[2017-05-21] MEDS: SODIUM CHLORIDE 0.9% FLUSH 10 ML FLUSH IV FLUSH SCH ×2 (08:16→20:01)
[2017-05-21] MEDS: POLYETHYLENE GLYCOL 17 GM PKG PO SCH (08:16)
[2017-05-21] MEDS: ACETAMINOPHEN/HYDROcodone 325 MG/5 MG TAB PO PRN (10:20)
[2017-05-21] MEDS: INSULIN ASPART SUPPLEMENTAL SCALE SQ SCH ×4 (10:21→21:00)
--- NOTE | 2017-05-21 15:01 | HHI.NPPN ---
Subjective History of Present Illness This patient is a 77-year-old male with a history of known chronic kidney disease stage III with a baseline creatinine level of approximately 1.7-1.9. Patient's initial chronic kidney disease was related to nephrosclerosis of hypertension but the patient subsequently developed marked proteinuria with development of a monoclonal gammopathy and was subsequently diagnosis having superimposed myeloma which is being managed by the hematology department at the [facility] in [place]. Patient has been on Revlimid. More recently patient's proteinuria has been improving. Patient subsequently presented to my office however yesterday complaining of increasing lower extremity edema with dyspnea. Renal labs were pending at the time of presentation to the office yesterday. There was a history of a echocardiogram at the [facility] indicating preserved ejection fraction. Because of the severity of the patient's fluid retention with respiratory insufficiency he was advised to be admitted to the hospital for further evaluation and apparently had evidence of acute myocardial injury with elevated troponin levels. Patient denied any chest pain at time of presentation. He does have a history however of aphthous chronic heart disease as well as an abdominal aortic aneurysm. Also previous history of AAA repair. Interval History Except for incisional pain patient had no complaints. by bedside and she is pleased with his progress. Review of Systems General Constitutional: Fatigue Cardiovascular Cardiac: Edema Objective Data Data Vital Signs Date Time Temp Pulse Resp B/P (MAP) Pulse Ox O2 Delivery O2 Flow Rate FiO2 05/21/17 08:10 97 Nasal Cannula 2.00 05/21/17 08:01 66 05/21/17 08:01 98.2 75 18 145/67 (93) 100 05/21/17 08:01 100 Nasal Cannula 2.00 05/21/17 07:01 81 05/21/17 06:00 85 05/21/17 05:00 75 05/21/17 04:00 73 05/21/17 03:40 98 Nasal Cannula 2.00 05/21/17 03:40 98.0 67 16 142/67 (92) 98 05/21/17 03:00 75 05/21/17 02:00 73 05/21/17 01:00 67 05/21/17 00:00 68 05/20/17 23:10 99 Nasal Cannula 2.00 05/20/17 23:10 98.2 70 16 134/63 (86) 99 05/20/17 23:00 73 05/20/17 22:00 76 05/20/17 21:00 74 05/20/17 20:30 98.5 65 16 145/66 (92) 98 05/20/17 20:30 98 Nasal Cannula 2.00 05/20/17 20:06 Nasal Cannula 2.00 05/20/17 20:00 80 05/20/17 19:00 87 05/20/17 18:00 82 05/20/17 17:02 71 05/20/17 17:01 17 05/20/17 16:03 17 05/20/17 16:00 80 05/20/17 15:38 99.0 80 19 134/62 (86) 95 05/20/17 15:00 100 Nasal Cannula 2.00 05/20/17 15:00 98.3 77 19 147/62 (90) 100 05/20/17 15:00 84 -: 05/21/17 0440 05/21/17 0440 Medication Review Current Medications Aspirin (Aspirin Chew) 243 mg ONCE ONCE CHEW ; Start 05/12/17 at 19:30; Stop 05/12/17 at 20:15; Status DC Nitroglycerin (Nitroglycerin 2% Oint) 1 inch ONCE ONCE TOPICAL Last administered on 05/12/17at 19:33; Start 05/12/17 at 19:30; Stop 05/12/17 at 19:31; Status DC Naloxone HCl (Narcan Inj) 0.4 mg UNSCH PRN IV PUSH SEE LABEL COMMENTS; Start at 20:30 Patient Own Medication PT OWN MED: Lenalidomide (Revlim... 3 weeks on 1 week of PO ; Start 05/12/17 at 23:00; Status Future Hold Pantoprazole Sodium (Protonix) 20 mg DAILY PO Last administered on 05/21/17at 08 :15; Start 05/13/17 at 09:00 Aspirin (Aspirin Chew) 81 mg DAILY PO Last administered on 05/21/17at 08:15; Start 05/19/17 at 09:00 Metoclopramide HCl (Reglan Inj) 5 mg ACHS IV PUSH Last administered on at 14:07; Start 05/18/17 at 17:00 Acetaminophen (Tylenol) 650 mg Q4H PRN PO TEMPERATURE > 101 F Last administered on 05/20/17at 14:58; Start 05/18/17 at 13:30 Albuterol/ Ipratropium (Duoneb Neb) 1 ampule Q2HR NEB PRN NEB WHEEZING; Start 05/18/17 at 13:30 Bisacodyl (Dulcolax Supp) 10 mg UNSCH PRN RECTAL SEE LABEL COMMENTS; Start at 09:15 Polyethylene Glycol (Miralax) 17 gm DAILY PO Last administered on 05/20/17at 09: 43; Start 05/20/17 at 09:00 Sennosides (Senokot) 8.6 mg HS PO Last administered on 05/20/17at 20:56; Start 05/19/17 at 21:00 Sodium Biphosphate/ Sodium Phosphate (Fleets Enema (Adult)) 118 ml UNSCH PRN RECTAL SEE LABEL COMMENTS; Start 05/19/17 at 09:15 Dextrose (D50w (Vial) Inj) 50 ml UNSCH PRN IV PUSH HYPOGLYCEMIA-SEE COMMENTS; Start 05/19/17 at 09:15 Glucagon (Glucagon Inj) 1 mg UNSCH PRN OTHER HYPOGLYCEMIA-SEE COMMENTS; Start 05/19/17 at 09:15 Insulin Aspart (NovoLOG SUPPLEMENTAL SCALE) 1 ACHS SQ Last administered on 05/21at 12:00; Start 05/20/17 at 12:00 5; Stop 05/20/17 at 18:00; Status DC Carvedilol (Coreg) 3.125 mg Q12HR PO Last administered on 05/21/17at 08:15; Start 05/20/17 at 21:00 Acetaminophen (Tylenol) 1,000 mg Q6H PRN PO PAIN SCALE 1 TO 5 Last administered on 05/20/17at 20:56; Start 05/20/17 at 13:15 Acetaminophen/ Hydrocodone Bitart ([place] 5-325 Mg) 1 tab Q8HR PRN PO PAIN SCALE 6 TO 10 Last administered on 05/21/17at 10:20; Start 05/20/17 at 13:15 Physical Exam General Appearance: No Acute Distress Neck Neck Exam: Neck Supple, Trachea Midline Pulmonary Resp Exam: Clear Bilaterally, Breath Sounds Equal Cardiology CV Exam: Regular, Normal Sinus Rhythm Gastrointestinal/Abdomen GI Exam: Soft, Non-Tender Integumentary Skin Exam: Clear, Warm Extremeties Extremities Exam: Trace Edema (upper extremities, no edema lower extremities.) Neurologic Neuro Exam: Alert, Awake Psychiatric Psych Exam: Appropriate Responses Assessment/Plan Discussed Condition With: Patient Problem List: (1) CKD (chronic kidney disease) stage 3, GFR 30-59 ml/min ICD Codes: N18.3 - Chronic kidney disease, stage 3 (moderate) Status: Chronic Plan: Patient continues to do quite well. Serum creatinine level is now below 2.0. We'll resume bumetanide which patient was taking as an outpatient, with potassium chloride. In view of stability of patient's renal function post CABG I will see the patient on a when necessary basis only. Please call if any questions. Patient to follow-up with me in the office in approximately 2-3 weeks post discharge as discussed with the patient's . Medications should be adjusted for the patient's estimated GFR if clinically indicated. Avoid agents with significant potential for nephrotoxicity possible including NSAIDs for analgesia, iodine contrast agents. Gadolinium is contraindicated if the GFR is below 30. (2) Non-STEMI (non-ST elevated myocardial infarction) ICD Codes: I21.4 - Non-ST elevation (NSTEMI) myocardial infarction Status: Resolved Plan: s/p cardiac cath 05/14/17 & 4 vessel CABG 05/18/17: HEAD to LAD, SVG to OM , SVG to D1, SVG to RCA Left anterior descending artery has a proximal 20-30% stenosis and a 99% stenosis of the LAD. The circumflex is subtotally occluded and goes on to give a large marginal. The right coronary artery is 90% occluded. Left ventriculogram performed in the standard ÁLVAREZ projection reveals an ejection fraction of 35-40%. Based on the patient's risk factors and current renal function I indicated to him his estimated risk for requiring dialysis post CABG is approximately 7.1% and he indicated to me that he accepts this risk and wishes to proceed with surgery and is clear from a renal point of view as such. (3) Anemia ICD Codes: D64.9 - Anemia, unspecified Status: Chronic Plan: Likely related to a combination of his chronic kidney disease and multiple myeloma. Parental iron as ordered. Would defer to hematology/oncology in regard to possible erythropoietin replacement therapy in view of his history of multiple myeloma. (4) New onset of congestive heart failure ICD Codes: I50.9 - Heart failure, unspecified Status: Resolved Plan: EF as per cardiac cath: 35-40% (5) Multiple myeloma, without mention of having achieved remission ICD Codes: C90.00 - Multiple myeloma not having achieved remission Status: Deedee Hinton MD May 21, 2017 15:01
--- NOTE | 2017-05-21 15:09 | PD.CAR.PN ---
CVT Progress Note Subjective/Hospital Course: 77-year-old patient of Dr. Brandon Cuellar, Dr. Aniket Clifton, Dr. 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 Marcelo. History of coronary artery disease, recently had been complaining of some lower extremity edema for about 4 weeks He went on a cruise 2 weeks ago and had some more noticeable lower extremity edema. He states that he was monitoring his sodium intake without much improvement. He just returned from his cruise. He went to see Dr. Lizama his banjo repair person who sent him over to the emergency department for further evaluation. He has also noticed some increased shortness of breath with minimal exertion and has been using his inhaler more. He denied having any chest pain, no orthopnea, no paroxysmal nocturnal dyspnea. In the emergency department his troponins were elevated at 9.72, his BNP was 1708, his creatinine was 2.07 and his baseline is 1.7 to 1.9. He was started on a heparin drip and was aggressively diuresed. He underwent cardiac cath today which showed ejection fraction of 35-40%, proximal LAD had a 20% stenosis, the mid distal LAD 90% stenosis, circumflex 99% stenosis, the ramus is 95% stenosed. He also underwent a 2-D echocardiogram which showed an EF of 45%, mild aortic regurgitation, moderate mitral valve regurgitation, the left atrium was mild to moderately dilated, there was also mild concentric left ventricular hypertrophy. We were consulted to evaluate for coronary artery bypass grafting. PAST MEDICAL HISTORY: Coronary artery disease, Hyperlipidemia, COPD on nebulizers at home, Chronic kidney disease, stage III with baseline of 1.7, He was incidentally found to have multiple myeloma when undergoing evaluation for neuropathy and has been on oral immunosuppressant Revlimid and is followed by Dr. Guzman at [facility] in [place]. OTHER PAST MEDICAL HISTORY: Obstructive sleep apnea on a C-PAP machine, Hypertension, Mild aortic stenosis, Moderate mitral valve regurgitation, Iron deficiency anemia, History of prostate cancer. PAST SURGICAL HISTORY: Cardiac cath in 1991 where he had two arthrectomies at that time. He was preceded by a myocardial infarction, He has had a AAA repair with endograft repair, [place] device in April of 2009, prostatectomy with radiation and Lupron therapy. 05/15 pt remains pain free, still feels a little SOB with exertion , mild productive cough , will recheck CXR tentatively scheduled for surgery on Thursday continue BB, ASA statin on Heparin gtt 05/18/ surgery: CABG x 4, HEAD to LAD, SVG to OM, SVG to D1, SVG to RCA, EVH (R and L) , HEYDI extubated after surgery , acutely unresponsive, hypoxic, cyanotic, bradycardic, immediately reintubated by Dr New CCM given amp Epi , per Dr New's note : The patient was then AI paced at 80. bedside critical care ultrasound which did demonstrate a small posterior pericardial effusion isolated to be around the posterior wall of the left ventricle. There was no evidence of effusion around the atria or the right ventricle and no evidence of temporal physiology echocardiographically. His LV demonstrated grossly preserved function without evidence of regional wall motion abnormalities. +3700cc crystalloid, 4 units PRBC, one unit PLT, EBL 1500cc 05/19 pt was extubated this am to 3 liter nasal cannula weaning off Epi gtt, off insulin gtt will keep in CVICU, re-eval later today , backup pacer at 60 AI intrinsic rate 63 NSR awake , sleepy follows commands, speech appropriate weight + 7kg, gently diuresed 05/20 creatinine improving 2.17 chest drained 140cc/ in 12 hrs / eval for removal in am backup pacer to 40/ eval for removal later today HR 65-70, for one unit PRBC today / then gentle diuresis decrease narcotics, pt sleepy and mild confusion 05/21 less confused, HGB 8.7/ post one unit PRBC yesterday still weak, recommend rehab placement creatinine improving chest tube drained 180cc/ leave in place today / eval for removal in am continue PT/OT Objective: GENERAL: more alert and oriented SKIN: Warm and dry. prevena dressing to chest incisions intact both R&L evh sites HEAD: Normocephalic. EYES: No scleral icterus. No injection or drainage. NECK: Supple, trachea midline. No JVD or lymphadenopathy. CARDIOVASCULAR: Regular rate and rhythm without murmurs, gallops, or rubs. RESPIRATORY: Breath sounds equal bilaterally. No accessory muscle use. crackles left lower lobe , chest tube no air leak GASTROINTESTINAL: Abdomen soft, non-tender, nondistended. MUSCULOSKELETAL: No cyanosis, or edema. BACK: Nontender without obvious deformity. No CVA tenderness. Vital Signs Date Time Temp Pulse Resp B/P (MAP) Pulse Ox O2 Delivery O2 Flow Rate FiO2 05/21/17 08:10 97 Nasal Cannula 2.00 05/21/17 08:01 66 05/21/17 08:01 98.2 75 18 145/67 (93) 100 05/21/17 08:01 100 Nasal Cannula 2.00 05/21/17 07:01 81 05/21/17 06:00 85 05/21/17 05:00 75 05/21/17 04:00 73 05/21/17 03:40 98 Nasal Cannula 2.00 05/21/17 03:40 98.0 67 16 142/67 (92) 98 05/21/17 03:00 75 05/21/17 02:00 73 05/21/17 01:00 67 05/21/17 00:00 68 05/20/17 23:10 99 Nasal Cannula 2.00 05/20/17 23:10 98.2 70 16 134/63 (86) 99 05/20/17 23:00 73 05/20/17 22:00 76 05/20/17 21:00 74 05/20/17 20:30 98.5 65 16 145/66 (92) 98 05/20/17 20:30 98 Nasal Cannula 2.00 05/20/17 20:06 Nasal Cannula 2.00 05/20/17 20:00 80 05/20/17 19:00 87 05/20/17 18:00 82 05/20/17 17:02 71 05/20/17 17:01 17 05/20/17 16:03 17 05/20/17 16:00 80 05/20/17 15:38 99.0 80 19 134/62 (86) 95 Labs: Laboratory Tests Test 05/21/17 04:40 White Blood Count 8.7 TH/MM3 (4.0-11.0) Red Blood Count 2.93 MIL/MM3 (4.50-5.90) Hemoglobin 8.7 GM/DL (13.0-17.0) Hematocrit 25.3 % (39.0-51.0) Mean Corpuscular Volume 86.3 FL (80.0-100.0) Mean Corpuscular Hemoglobin 29.6 PG (27.0-34.0) Mean Corpuscular Hemoglobin Concent 34.3 % (32.0-36.0) Red Cell Distribution Width 15.8 % (11.6-17.2) Platelet Count 168 TH/MM3 (150-450) Mean Platelet Volume 8.4 FL (7.0-11.0) Blood Urea Nitrogen 38 MG/DL (7-18) Creatinine 1.59 MG/DL (0.60-1.30) Random Glucose 118 MG/DL (74-106) Calcium Level 8.4 MG/DL (8.5-10.1) Sodium Level 144 MEQ/L (136-145) Potassium Level 3.7 MEQ/L (3.5-5.1) Chloride Level 109 MEQ/L (98-107) Carbon Dioxide Level 26.2 MEQ/L (21.0-32.0) Anion Gap 9 MEQ/L (5-15) Estimat Glomerular Filtration Rate 42 ML/MIN (>89) Result Diagram: 05/21/1743905/21/17439 (1) Non-STEMI (non-ST elevated myocardial infarction) (2) New onset of congestive heart failure Plan: EF 35% gentle diuresis , no shelley with CKD/ CLEMENT (3) S/P CABG x 4 Plan: on baby ASA, statin rate improved stable on low dose BB PT/OT (4) Anemia Plan: s/p one unit PRBC 05/20 HGB no 8.7 (5) CKD (chronic kidney disease) stage 3, GFR 30-59 ml/min Plan: creatinine 2.0 > 1.58 > 2.17> 1.59 (6) Multiple myeloma, without mention of having achieved remission Plan: will need to discuss timing of when it is safe to resume home revlimid / for his Multiple myeloma Judith Gutierrez May 21, 2017 15:09
[2017-05-21] MEDS ORDERED: POTASSIUM CHLORIDE 10 MEQ CONTROLLED RELEASE TAB PO ONE (15:15)
[2017-05-21] MEDS: FUROSEMIDE 40 MG/4 ML VIAL IV PUSH SCH (17:49)
[2017-05-21] MEDS: ACETAMINOPHEN 500 MG CPLT PO PRN (20:00)
[2017-05-21] MEDS: ATORVASTATIN 40 MG TAB PO SCH (20:00)
[2017-05-21] MEDS: SENNOSIDES 8.6 MG TAB PO SCH (20:00)
[2017-05-22] VITALS (17 sets, daily range): BP systolic 101–141; BP diastolic 51–65; PULSE 57–84; RESP 18–20; TEMP 97.9–99.2; O2SAT 4–98
[2017-05-22 05:32] LABS: BICARBONATE 24.8 MEQ/L (21.0-32.0); CALCIUM 8.8 MG/DL (8.5-10.1); CREATININE 1.53 MG/DL (0.60-1.30)
[2017-05-22] MEDS: INSULIN ASPART SUPPLEMENTAL SCALE SQ SCH ×2 (08:00→12:00)
[2017-05-22] MEDS: FUROSEMIDE 40 MG/4 ML VIAL IV PUSH SCH (08:17)
[2017-05-22] MEDS ORDERED: DOCU1CAP39 PO (08:17)
[2017-05-22] MEDS: MULTIVITAMINS/MINERALS THERAPEUTIC TAB PO SCH (08:17)
[2017-05-22] MEDS ORDERED: HYDR-3516 PO (08:17)
[2017-05-22] MEDS: POLYETHYLENE GLYCOL 17 GM PKG PO SCH (08:18)
[2017-05-22] MEDS: CARVEDILOL 3.125 MG TAB PO SCH (08:18)
[2017-05-22] MEDS: ASPIRIN 81 MG CHEW TAB PO SCH (08:18)
[2017-05-22] MEDS: DOCUSATE SODIUM 100 MG CAP PO SCH (08:18)
[2017-05-22] MEDS: PANTOPRAZOLE SOD 20 MG DELAYED RELEASE TAB PO SCH (08:18)
[2017-05-22] MEDS: SODIUM CHLORIDE 0.9% FLUSH 10 ML FLUSH IV FLUSH SCH (08:21)
--- NOTE | 2017-05-22 08:21 | HHI.DS ---
Discharge Summary Admission Date May 12, 2017 at 20:27 Discharge Date: May 22, 2017 Admitting Diagnosis NonSTEMI, New onset CHF (1) Non-STEMI (non-ST elevated myocardial infarction) Diagnosis: Principal ICD Codes: I21.4 - Non-ST elevation (NSTEMI) myocardial infarction Status: Resolved (2) New onset of congestive heart failure Diagnosis: Principal ICD Codes: I50.9 - Heart failure, unspecified Status: Resolved (3) Anemia Diagnosis: Secondary ICD Codes: D64.9 - Anemia, unspecified Status: Chronic (4) CKD (chronic kidney disease) stage 3, GFR 30-59 ml/min ICD Codes: N18.3 - Chronic kidney disease, stage 3 (moderate) Status: Chronic (5) Multiple myeloma, without mention of having achieved remission ICD Codes: C90.00 - Multiple myeloma not having achieved remission Status: Chronic (6) CAD (coronary artery disease) Diagnosis: Principal ICD Codes: I25.10 - Atherosclerotic heart disease of [place] coronary artery without angina pectoris (7) S/P CABG x 4 Diagnosis: Principal ICD Codes: Z95.1 - Presence of aortocoronary bypass graft Procedures Cardiac Catheterization left main is free of significant disease, The circumflex is subtotally occluded, LAD 99% stenosis, RCA 90% occluded, EF 35-40%. Significant triple-vessel disease with renal insufficiency and significantly decreased myocardial function. Recommend bypass surgery with HEAD to the LAD, vein grafts to the marginal and distal right. Dr. Shawna Vivas from CV surgery will be consulted. The sheath will be pulled manually. Further recommendations to follow hospital course. Brief History 77-year-old patient of Dr. Brandon Cuellar, Dr. Aniket Clifton, Dr. 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 Marcelo. History of coronary artery disease, recently had been complaining of some lower extremity edema for about 4 weeks He went on a cruise 2 weeks ago and had some more noticeable lower extremity edema. He states that he was monitoring his sodium intake without much improvement. He just returned from his cruise. He went to see Dr. Lizama his medical assembler who sent him over to the emergency department for further evaluation. He has also noticed some increased shortness of breath with minimal exertion and has been using his inhaler more. He denied having any chest pain, no orthopnea, no paroxysmal nocturnal dyspnea. In the emergency department his troponins were elevated at 9.72, his BNP was 1708, his creatinine was 2.07 and his baseline is 1.7 to 1.9. He was started on a heparin drip and was aggressively diuresed. He underwent cardiac cath today which showed ejection fraction of 35-40%, proximal LAD had a 20% stenosis, the mid distal LAD 90% stenosis, circumflex 99% stenosis, the ramus is 95% stenosed. He also underwent a 2-D echocardiogram which showed an EF of 45%, mild aortic regurgitation, moderate mitral valve regurgitation, the left atrium was mild to moderately dilated, there was also mild concentric left ventricular hypertrophy. We were consulted to evaluate for coronary artery bypass grafting. PAST MEDICAL HISTORY: Coronary artery disease, Hyperlipidemia, COPD on nebulizers at home, Chronic kidney disease, stage III with baseline of 1.7, He was incidentally found to have multiple myeloma when undergoing evaluation for neuropathy and has been on oral immunosuppressant Revlimid and is followed by Dr. Guzman at [facility] in [place]. OTHER PAST MEDICAL HISTORY: Obstructive sleep apnea on a C-PAP machine, Hypertension, Mild aortic stenosis, Moderate mitral valve regurgitation, Iron deficiency anemia, History of prostate cancer. PAST SURGICAL HISTORY: Cardiac cath in 1991 where he had two arthrectomies at that time. He was preceded by a myocardial infarction, He has had a AAA repair with endograft repair, Newton device in April of 2009, prostatectomy with radiation and Lupron therapy. CBC/BMP: 05/21/17 0440 05/22/17 0431 Significant Findings Laboratory Tests Test 05/19/17 16:53 05/20/17 04:20 05/21/17 04:40 05/22/17 04:31 Blood Urea Nitrogen 48 MG/DL (7-18) 44 MG/DL (7-18) 38 MG/DL (7-18) 34 MG/DL (7-18) Creatinine 2.46 MG/DL (0.60-1.30) 2.19 MG/DL (0.60-1.30) 1.59 MG/DL (0.60-1.30) 1.53 MG/DL (0.60-1.30) Random Glucose 133 MG/DL (74-106) 119 MG/DL (74-106) 118 MG/DL (74-106) 117 MG/DL (74-106) Total Protein 5.3 GM/DL (6.4-8.2) 5.2 GM/DL (6.4-8.2) Albumin 2.8 GM/DL (3.4-5.0) 2.6 GM/DL (3.4-5.0) Calcium Level 8.2 MG/DL (8.5-10.1) 8.2 MG/DL (8.5-10.1) 8.4 MG/DL (8.5-10.1) Magnesium Level 3.3 MG/DL (1.5-2.5) 3.0 MG/DL (1.5-2.5) Alkaline Phosphatase 39 U/L (45-117) Chloride Level 110 MEQ/L (98-107) 110 MEQ/L (98-107) 109 MEQ/L (98-107) 110 MEQ/L (98-107) Estimat Glomerular Filtration Rate 26 ML/MIN (>89) 29 ML/MIN (>89) 42 ML/MIN (>89) 44 ML/MIN (>89) Red Blood Count 2.57 MIL/MM3 (4.50-5.90) 2.93 MIL/MM3 (4.50-5.90) Hemoglobin 7.6 GM/DL (13.0-17.0) 8.7 GM/DL (13.0-17.0) Hematocrit 22.0 % (39.0-51.0) 25.3 % (39.0-51.0) Monocytes (%) (Auto) 10.6 % (0.0-8.0) Imaging Last Impressions Chest X-Ray 05/19/17 0500 Signed Impressions: Service Date/Time: Friday, May 19, 2017 04:35 - CONCLUSION: Consolidation or atelectasis at the bases being worse on the left. This is unchanged from the prior exam. Darrell Melendez MD Lower Extremity Ultrasound 05/14/17 0000 Signed Impressions: Service Date/Time: May 15:27 - CONCLUSION: 1. Lower extremity venous mapping, as above. Raymond Islas MD Carotid Artery Ultrasound 05/14/17 0000 Signed Impressions: Service Date/Time: Thursday, May 14, 2017 15:42 - CONCLUSION: 1. No significant carotid flow limiting stenosis. 2. Antegrade vertebral artery flow bilaterally. Raymond Islas MD PE at Discharge chest - CTA COR - RRR ABD - soft, NT, NABS wound - dry and intact Hospital Course 05/15 pt remains pain free, still feels a little SOB with exertion , mild productive cough , will recheck CXR tentatively scheduled for surgery on Thursday continue BB, ASA statin on Heparin gtt 05/18/ surgery: CABG x 4, HEAD to LAD, SVG to OM, SVG to D1, SVG to RCA, EVH (R and L) , HEYDI extubated after surgery , acutely unresponsive, hypoxic, cyanotic, bradycardic, immediately reintubated by Dr eNw CCM given amp Epi , per Dr New's note : The patient was then AI paced at 80. bedside critical care ultrasound which did demonstrate a small posterior pericardial effusion isolated to be around the posterior wall of the left ventricle. There was no evidence of effusion around the atria or the right ventricle and no evidence of temporal physiology echocardiographically. His LV demonstrated grossly preserved function without evidence of regional wall motion abnormalities. +3700cc crystalloid, 4 units PRBC, one unit PLT, EBL 1500cc 05/19 pt was extubated this am to 3 liter nasal cannula weaning off Epi gtt, off insulin gtt will keep in CVICU, re-eval later today , backup pacer at 60 AI intrinsic rate 63 NSR awake , sleepy follows commands, speech appropriate weight + 7kg, gently diuresed 05/20 creatinine improving 2.17 chest drained 140cc/ in 12 hrs / eval for removal in am backup pacer to 40/ eval for removal later today HR 65-70, for one unit PRBC today / then gentle diuresis decrease narcotics, pt sleepy and mild confusion 05/21 less confused, HGB 8.7/ post one unit PRBC yesterday still weak, recommend rehab placement creatinine improving chest tube drained 180cc/ leave in place today / eval for removal in am continue PT/OT 05/22/17 Chest tubes removed Ready for transfer to SNF/rehab Pt Condition on Discharge: Good Discharge Disposition: Discharge to SNF Discharge Instructions DIET: Follow Instructions for: Heart Healthy Diet Activities you can perform: Weight Bearing as Lily, Shower Only-No Bath Activities to avoid: Lifting/Bending, Driving Follow up Referrals: Cardiology - 4 Weeks with Aniket Clifton MD PCP Follow-up - 2 Weeks with Brandon Cuellar M.d. Surgical - 2 Weeks with Judith Gutierrez New Orders: BASIC METABOLIC PROF - 2 Weeks CBC NO DIFF - 2 Weeks X-RAY CHEST PA & LAT - 2 Weeks New Medications: Docusate Sodium (Dok) 100 Mg Cap 100 MG PO BID for Constipation, #31 CAP Hydrocodone/Acetaminophen (Hydrocodone-Acetamin 5-325 mg) 5 Mg-325 Mg Tablet 1 TAB PO Q8HR PRN for PAIN SCALE 6 TO 10, #30 TAB Continued Medications: Albuterol 18 GM Inh (Ventolin Hfa 18 GM Inh) 90 Mcg/Act Aer 2 PUFF INH Q4-6H PRN for SHORTNESS OF BREATH, #1 INHALER 0 Refills Amlodipine (Amlodipine) 5 Mg Tab 5 MG PO DAILY for Blood Pressure Management, #30 TAB 0 Refills Aspirin (Aspirin) 81 Mg Chew 81 MG CHEW DAILY, TAB 0 Refills Bumetanide (Bumetanide) 1 Mg Tab 1 MG PO EVERY OTHER DAY, #60 TAB 0 Refills Calcium Citrate-Vitamin D (Tyshawn-Citrate Plus Vitamin D) 250-100 Mg-Unit Tab 2 TAB PO BID for Calcium Supplement, TAB 0 Refills Carvedilol (Coreg) 3.125 Mg Tab 3.125 MG PO BID, #60 TAB 0 Refills Cholecalciferol (Vitamin D3) 2,000 Unit Cap 2000 UNITS PO DAILY for Nutritional Supplement, #1 BOTTLE 0 Refills Lenalidomide (Revlimid) 10 Mg Capsule 10 MG PO 3 weeks on 1 week of Multiple Vitamin (Multi Vitamin Daily) 1 Tab Tab Omeprazole (Omeprazole) 20 Mg Cap 20 MG PO DAILY Potassium Chloride ER (Potassium Chloride ER) 10 Meq Cap 10 MEQ PO EVERY OTHER DAY for Electrolyte Replacement, #60 CAP 0 Refills Pravastatin (Pravastatin) 40 Mg Tab 40 MG PO DAILY for Cholesterol Management, #30 TAB 0 Refills Pregabalin (Lyrica) 75 Mg Cap 75 MG PO BID, #60 CAP 0 Refills Shawna Vivas MD May 22, 2017 08:21
[2017-05-22] MEDS ORDERED: BUMETANIDE 1 MG TAB PO SCH (09:00)
[2017-05-22] MEDS ORDERED: POTASSIUM CHLORIDE 10 MEQ CONTROLLED RELEASE TAB PO SCH (09:00)
--- NOTE | 2017-05-22 13:21 | RADRPT ---
EXAM DATE/TIME: 05/22/2017 12:39 [facility] COMPARISON: CHEST SINGLE AP, May 19, 2017, 4:35. INDICATIONS : Post chest tube removal MEDICAL HISTORY : Myocardial infarction. Hypertension renal failure, prostate cancer, AAA SURGICAL HISTORY : CABG. Abdominal aortic aneurysm repair. prostatectomy ENCOUNTER: Subsequent ACUITY: 1 week PAIN SCORE: 3/10 LOCATION: Bilateral chest FINDINGS: The examination demonstrates removal of the patient's left-sided chest tube. The nasogastric tube and left central venous catheter are no longer identified. There are mild atelectatic changes in the jack g bases. There is minimal bibasilar effusion. The patient is post median sternotomy. The osseous stru ctures are intact. CONCLUSION: 1. Stable postoperative chest. No pneumothorax identified following chest tube removal. Cali Lemos MD on May 22, 2017 at 13:13 Board Certified Radiologist. This report was verified electronically.
== END 2017-05-22 16:50 | DRG 233 ==
LOC: NEPE 16:28 → NEDA 20:27 → HCIS 05-13 00:59 → HCPC 05-17 11:13 → HCVI 05-18 15:30 → HCPC 05-19 14:45
PROVIDERS: ADMIT Internal Medicine; ATTEND Thoracic Surgery (Cardiothoracic Vascular Surgery)
PROC: 4A023N7 Measurement of Cardiac Sampling and Pressure, Left Heart, Percutaneous Approach (ICD-10-PCS; 2017-05-14)
PROC: B2111ZZ Fluoroscopy of Multiple Coronary Arteries using Low Osmolar Contrast (ICD-10-PCS; 2017-05-14)
PROC: B2151ZZ Fluoroscopy of Left Heart using Low Osmolar Contrast (ICD-10-PCS; 2017-05-14)
PROC: 5A1935Z Respiratory Ventilation, Less than 24 Consecutive Hours (ICD-10-PCS; 2017-05-18)
PROC: 021209W Bypass Coronary Artery, Three Arteries from Aorta with Autologous Venous Tissue, Open Approach (ICD-10-PCS; 2017-05-18)
PROC: 06BQ4ZZ Excision of Left Saphenous Vein, Percutaneous Endoscopic Approach (ICD-10-PCS; 2017-05-18)
PROC: 06BP4ZZ Excision of Right Saphenous Vein, Percutaneous Endoscopic Approach (ICD-10-PCS; 2017-05-18)
PROC: 5A1221Z Performance of Cardiac Output, Continuous (ICD-10-PCS; 2017-05-18)
PROC: B246ZZ4 Ultrasonography of Right and Left Heart, Transesophageal (ICD-10-PCS; 2017-05-18)
PROC: 0BH18EZ Insertion of Endotracheal Airway into Trachea, Via Natural or Artificial Opening Endoscopic (ICD-10-PCS; 2017-05-18)
PROC: 30233R1 Transfusion of Nonautologous Platelets into Peripheral Vein, Percutaneous Approach (ICD-10-PCS; 2017-05-18)
PROC: 30233N1 Transfusion of Nonautologous Red Blood Cells into Peripheral Vein, Percutaneous Approach (ICD-10-PCS; 2017-05-18)
PROC: 02100Z9 Bypass Coronary Artery, One Artery from Left Internal Mammary, Open Approach (ICD-10-PCS; principal; 2017-05-18 07:08)
DX: I21.4 Non-ST elevation (NSTEMI) myocardial infarction (principal); I50.21 Acute systolic (congestive) heart failure; J95.821 Acute postprocedural respiratory failure; R57.0 Cardiogenic shock; I31.0 Chronic adhesive pericarditis; E87.0 Hyperosmolality and hypernatremia; C90.00 Multiple myeloma not having achieved remission; I13.0 Hypertensive heart and chronic kidney disease with heart failure and stage 1 through stage 4 chronic kidney disease, or unspecified chronic kidney disease; I31.3 Pericardial effusion (noninflammatory); J44.9 Chronic obstructive pulmonary disease, unspecified; E87.6 Hypokalemia; G47.33 Obstructive sleep apnea (adult) (pediatric); I25.110 Atherosclerotic heart disease of native coronary artery with unstable angina pectoris; N18.3 Chronic kidney disease, stage 3 (moderate); D63.1 Anemia in chronic kidney disease; D63.0 Anemia in neoplastic disease; I08.3 Combined rheumatic disorders of mitral, aortic and tricuspid valves; R60.0 Localized edema; R00.1 Bradycardia, unspecified; E78.5 Hyperlipidemia, unspecified; I73.9 Peripheral vascular disease, unspecified; Z85.46 Personal history of malignant neoplasm of prostate; Z92.3 Personal history of irradiation; Z87.891 Personal history of nicotine dependence
CPT/HCPCS: 31500; 36430; 71045; 71046; 76937; 80048; 80053; 81001; 82040; 82550; 82552; 82570; 82728; 82948; 83036; 83540; 83550; 83735; 83880; 84100; 84132; 84155; 84156; 84157; 84484; 85025; 85027; 85610; 85730; 86850; 86900; 86901; 86920; 87641; 88305; 93005; 93306; 93318; 93458; 93880; 93970; 93998; 94002; 94003; 94010; 94150; 94640; 94664; 94667; 94668; 96365; 96375; 99152; C1769; C1893; J0131; J0171; J0330; J0690; J1644; J1756; J1815; J1817; J1940; J2150; J2250; J2370; J2440; J2720; J2765; J2930; J3010; J3370; J3475; J3480; J7030; J7050; J7060; J7120; P9016; P9035; P9045; P9047; Q9967